=== PATIENT | male | born 1965 | race Caucasian/White ===

== ENCOUNTER 2017-11-02 13:31 | Inpatient (IN) | payer MEDICAID ==
[~2017-11-02] VITALS: Ht 188 cm; Wt 83.0 kg
[2017-11-02] MEDS ORDERED: Octreotide Acetate 500 MCG in Sodium Chloride 500ML 499 ML IV STA (13:44)
[2017-11-02] MEDS ORDERED: SandoSTATIN 50mcg Inj IVP ONE (13:45)
[2017-11-02] MEDS ORDERED: Pantoprazole 80 MG in NS 250 ML IV ONE (14:00)
[2017-11-02] MEDS ORDERED: Pantoprazole Inj IVP ONE (14:00)
[2017-11-02] MEDS ORDERED: Morphine Sulfate 4mg/ml Inj (IV USE ONLY) IVP ONE (14:15)
[2017-11-02 14:25] VITALS: BP 110/66
[2017-11-02 14:25] LABS: HEMATOCRIT 25.3 % (42.0-52.0); HEMOGLOBIN 8.5 G/DL (14.2-18.0); MEAN CORPUSCULAR VOLUME 107 FL (80-99); PLATELET COUNT 91 K/UL (150-450); RED BLOOD COUNT 2.36 M/UL (4.70-6.10); RED CELL DISTRIBUTION WIDTH 20.7 % (11.6-14.8); WHITE BLOOD COUNT 16.6 K/UL (4.8-10.8)
[2017-11-02 14:29] LABS: INR 1.8 (0.9-1.1)
[2017-11-02 14:39] LABS: ANION GAP 14 mmol/L (5-15); BLOOD UREA NITROGEN 15 mg/dL (7-18); CALCIUM 8.3 MG/DL (8.5-10.1); CARBON DIOXIDE 20 MMOL/L (21-32); CHLORIDE 108 MMOL/L (98-107); CREATININE 0.7 MG/DL (0.55-1.30); POTASSIUM 4.2 MMOL/L (3.5-5.1); SODIUM 142 MMOL/L (136-145)
[2017-11-02 14:54] LABS: ALANINE AMINOTRANSFERASE 39 U/L (12-78); ALBUMIN 2.7 G/DL (3.4-5.0); ALBUMIN/GLOBULIN RATIO 0.9 (1.0-2.7); ALKALINE PHOSPHATASE 109 U/L (46-116); ASPARTATE AMINO TRANSFERASE 124 U/L (15-37); BILIRUBIN,TOTAL 16.3 MG/DL (0.2-1.0)
[2017-11-02 14:56] LABS: BILIRUBIN,DIRECT 4.8 MG/DL (0.0-0.3)
[2017-11-02] MEDS ORDERED: Vancomycin 1.5gm/D5W 250ml 250 ML IVPB ONE (15:15)
[2017-11-02] MEDS ORDERED: Piperacillin/Tazobactam 3.375 GM in D5W 55 ML IV SCH (15:15)
--- NOTE | 2017-11-02 15:34 | GI Initial Consult Note ---
History of Present Illness General Date patient seen: Nov 02, 2017 Time patient seen: 15:25 Reason for Hospitalization: Abdominal Pain Reason for Consultation: UGIB Present Illness HPI 52 year old male brought in today to [facility] for reports of hematemesis. History of chronic ETOH abuse, approximately 1 bottle of vodka per day for "many" years. Denies any tobacco or IVDA use. Denied any other medical history at this time. Patient was seen in the ED, awake A&Ox4 NAD with no active vomiting , however with noted blood on his sheets. Generalize jaundice. Abdominal distention. No peripheral edema noted. Labs reviewed with anemia, leukocytosis, abnormal LFTs, coagulopathy and hyperalbuminemia. No known history of endoscopy / colonoscopy. Allergies: Coded Allergies: No Known Allergies (Unverified , 11/02/17) Patient History History Provided By: Patient, Medical Record PMH Narrative see HPI. Social History: Reports: alcohol use Review of Systems All Other Systems: negative except mentioned in HPI Physical Exam Vital Signs Date Time Temp Pulse Resp B/P (MAP) Pulse Ox O2 Delivery O2 Flow Rate FiO2 11/02/17 13:20 98.4 130 20 140/61 96 Room Air 98.4 Sp02 EP Interpretation: reviewed, normal Labs Laboratory Tests Test 11/02/17 14:00 White Blood Count 16.6 K/UL (4.8-10.8) H Red Blood Count 2.36 M/UL (4.70-6.10) L Hemoglobin 8.5 G/DL (14.2-18.0) L Hematocrit 25.3 % (42.0-52.0) L Mean Corpuscular Volume 107 FL (80-99) H Mean Corpuscular Hemoglobin 35.9 PG (27.0-31.0) H Mean Corpuscular Hemoglobin Concent 33.5 G/DL (32.0-36.0) Red Cell Distribution Width 20.7 % (11.6-14.8) H Platelet Count 91 K/UL (150-450) L Mean Platelet Volume 9.9 FL (6.5-10.1) Neutrophils (%) (Auto) % (45.0-75.0) Lymphocytes (%) (Auto) % (20.0-45.0) Monocytes (%) (Auto) % (1.0-10.0) Eosinophils (%) (Auto) % (0.0-3.0) Basophils (%) (Auto) % (0.0-2.0) Differential Total Cells Counted 100 Neutrophils % (Manual) 77 % (45-75) H Lymphocytes % (Manual) 5 % (20-45) L Monocytes % (Manual) 4 % (1-10) Eosinophils % (Manual) 0 % (0-3) Basophils % (Manual) 0 % (0-2) Band Neutrophils 14 % (0-8) H Platelet Estimate Decreased L Platelet Morphology Normal Hypochromasia 1+ Anisocytosis 1+ Macrocytosis 2+ Prothrombin Time 18.4 SEC (9.30-11.50) H Prothromb Time International Ratio 1.8 (0.9-1.1) H Activated Partial Thromboplast Time 35 SEC (23-33) H Sodium Level 142 MMOL/L (136-145) Potassium Level 4.2 MMOL/L (3.5-5.1) Chloride Level 108 MMOL/L (98-107) H Carbon Dioxide Level 20 MMOL/L (21-32) L Anion Gap 14 mmol/L (5-15) Blood Urea Nitrogen 15 mg/dL (7-18) Creatinine 0.7 MG/DL (0.55-1.30) Estimat Glomerular Filtration Rate > 60 mL/min (>60) Glucose Level 104 MG/DL (74-106) Lactic Acid Level 6.30 mmol/L (0.4-2.0) H Calcium Level 8.3 MG/DL (8.5-10.1) L Total Bilirubin 16.3 MG/DL (0.2-1.0) H Direct Bilirubin 4.8 MG/DL (0.0-0.3) H Aspartate Amino Transf (AST/SGOT) 124 U/L (15-37) H Alanine Aminotransferase (ALT/SGPT) 39 U/L (12-78) Alkaline Phosphatase 109 U/L (46-116) Ammonia Pending Total Protein 5.7 G/DL (6.4-8.2) L Albumin 2.7 G/DL (3.4-5.0) L Globulin 3.0 g/dL Albumin/Globulin Ratio 0.9 (1.0-2.7) L Lipase 115 U/L (73-393) General Appearance: well appearing, no apparent distress, alert, thin, other - jaundice Head: normocephalic EENT: PERRL/EOMI, normal ENT inspection Neck: supple Respiratory: normal breath sounds, no respiratory distress Cardiovascular: normal rate Gastrointestinal: normal inspection, non tender, soft, normal bowel sounds, distended, ascites Rectal: deferred Genitourinary: deferred Musculoskeletal: normal inspection, back normal Neurologic: normal inspection, alert, oriented x3, responsive Psychiatric: normal inspection, judgement/insight normal, memory normal Skin: normal inspection, normal color, no rash, warm/dry, palpation normal, well hydrated Lymphatic: normal inspection, no adenopathy Current Medications Current Medications Medications (Trade) Dose Ordered Sig/Fish Route PRN Reason Start Time Stop Time Status Last Admin Dose Admin Octreotide Acetate 500 mcg/ Sodium Chloride 500 ml @ 50 mls/hr Q10H STAT IV 11/02/17 13:44 11/02/17 23:43 11/02/17 14:36 Pantoprazole 80 mg/Sodium Chloride 250 ml @ 25 mls/hr Q10H ONCE IV 11/02/17 14:00 11/02/17 23:59 11/02/17 14:36 Piperacillin Sod/ Tazobactam Sod 3.375 gm/Dextrose 55 ml @ 110 mls/hr Q8HR IV 11/02/17 15:15 11/03/17 15:14 Sodium Chloride 1,000 ml @ 100 mls/hr Q10H ONCE IV 11/02/17 13:43 11/02/17 23:42 Sodium Chloride 2,300 ml @ 2,300 mls/hr Q1H ONCE IVLG 11/02/17 15:15 11/02/17 16:14 Vancomycin HCl/ Dextrose 250 ml @ 125 mls/hr ONCE ONCE IVPB 11/02/17 15:15 11/02/17 17:14 GI: Plan Problems: (1) ETOH abuse (2) Esophageal varices (3) UGI bleed (4) Jaundice (5) Anemia (6) Cirrhosis of liver with ascites (7) Electrolyte imbalance (8) Hepatic encephalopathy Plan EGD to be scheduled tomorrow. - maintain NPO + IVFs vs banana bag start ppi + octreotide gtt discriminant function calculated >> poor prognosis, start prednisone 40mg daily. ceftriaxone 1gm monitor H&H, prn transfusion will need paracentesis after endoscopy >> vit K x1, r/o SBP zofran prn lactulose + xifaxan fu labs, anemia work up, NH3 Discussed with Dr. Fritz. Thank you for this patient referral, we will follow. The patient was seen and examined at bedside and all new and available data was reviewed in the patients chart. I agree with the above findings, impression and plan. (Patient seen earlier today. Signature stamp does not reflect patient encounter time.). - MD Mami DeweyCopper Springs East HospitalSalvador PULVERIZING AND SIFTING OPERATOR Nov 02, 2017 15:34
--- NOTE | 2017-11-02 15:54 | Diagnostic Imaging Report ---
Indication: Cough Technique: One view of the chest Comparison: none Findings: Extensive opacities seen in the right lung base, likely combination of pleural fluid and parenchymal atelectasis/consolidation. The left lung and pleural space, right upper lung are clear Impression: Right basilar opacity, likely large right pleural effusion, with underlying parenchymal disease as well
[2017-11-02] MEDS ORDERED: SandoSTATIN 500mcg Inj ONE (15:55)
--- NOTE | 2017-11-02 16:50 | Diagnostic Imaging Report ---
. Indication: Post nasogastric tube placement Technique: Supine view of the upper abdomen Comparison: none Findings: Sequential views are submitted, there is labeled #1 demonstrates no nasogastric tube, and was labeled #2 demonstrates nasogastric tube coiled in the distal esophagus, and image labeled #3 demonstrates no evidence of nasogastric tube. Bowel gas pattern is unremarkable. No unusual masses or calcifications. Impression: Malpositioned nasogastric tube, apparently subsequently removed, as described
--- NOTE | 2017-11-02 16:51 | Emergency Room Report ---
History of Present Illness General Chief Complaint: Abdominal Pain Source: Patient, Medical Record Present Illness HPI Mr. Hernandes is a 52-year-old male with history of alcoholic liver cirrhosis. He is normally followed at [facility]. He was found at a local recuperative care boarding home lying in bed surrounded by bloody stool. He informed me that he does have a history of esophageal varices. He has generalized abdominal pain. His last alcoholic drink may have been last night or 1 week ago. Allergies: Coded Allergies: No Known Allergies (Unverified , 11/02/17) Patient History Past Medical History: other - alcoholic liver cirrhosis Reviewed Nursing Documentation: PMH: Agreed; PSxH: Agreed Nursing Documentation-PMH Hx Gastrointestinal Problems: Yes - cirrhosis Review of Systems All Other Systems: limited - patient is critically ill Physical Exam Vital Signs Date Time Temp Pulse Resp B/P (MAP) Pulse Ox O2 Delivery O2 Flow Rate FiO2 11/02/17 13:20 98.4 130 20 140/61 96 Room Air 98.4 Sp02 EP Interpretation: reviewed, normal General Appearance: moderate distress, other - severe generalized jaundice GCS 14, Chronically Ill Eyes: bilateral eye scleral icterus ENT: hearing grossly normal, dry mucus membranes Neck: normal inspection, full range of motion Respiratory: normal inspection, lungs clear, normal breath sounds, no rhonchi, no respiratory distress, no retraction, no accessory muscle use Cardiovascular #1: no gallop, no murmur Gastrointestinal: soft, distended, guarding, tenderness Rectal: normal rectal tone, heme positive stool - dark brown stool Neurologic: alert, oriented - to name and situation Psychiatric: other - poor insight Skin: jaundice - generalized Procedures Critical Care Time Critical Care Time 55 minutes of critical care time excluding procedures were used in the care of the patient. I reviewed labs and imaging. I reviewed documentation from outside hospital evaluation. Patient required multiple reassessments and interventions. I was concerned for persistent tachycardia, possible hemorrhagic vs septic shock. Medical Decision Making Diagnostic Impression: Primary Impression: Anemia Additional Impressions: Cirrhosis of liver with ascites UGI bleed Hepatic encephalopathy ER Course Mr. Hernandes presents with UGIB, krysta blood seen on output of NGT. Patient has persistent tachycardia. Concerned for active hemorrhage. Also concerned for possible sepsis and SBP. IVF resuscitation and broad spectrum abx intiated in ED. Protonix and octreotide initiated in the ED. Dr. Patel accepted patient to his service. Patient will be admitted to ICU. Dr. Patel arranged GI consultation Labs Test 11/02/17 14:00 White Blood Count 16.6 K/UL (4.8-10.8) Red Blood Count 2.36 M/UL (4.70-6.10) Hemoglobin 8.5 G/DL (14.2-18.0) Hematocrit 25.3 % (42.0-52.0) Mean Corpuscular Volume 107 FL (80-99) Mean Corpuscular Hemoglobin 35.9 PG (27.0-31.0) Mean Corpuscular Hemoglobin Concent 33.5 G/DL (32.0-36.0) Red Cell Distribution Width 20.7 % (11.6-14.8) Platelet Count 91 K/UL (150-450) Mean Platelet Volume 9.9 FL (6.5-10.1) Neutrophils (%) (Auto) % (45.0-75.0) Lymphocytes (%) (Auto) % (20.0-45.0) Monocytes (%) (Auto) % (1.0-10.0) Eosinophils (%) (Auto) % (0.0-3.0) Basophils (%) (Auto) % (0.0-2.0) Differential Total Cells Counted 100 Neutrophils % (Manual) 77 % (45-75) Lymphocytes % (Manual) 5 % (20-45) Monocytes % (Manual) 4 % (1-10) Eosinophils % (Manual) 0 % (0-3) Basophils % (Manual) 0 % (0-2) Band Neutrophils 14 % (0-8) Platelet Estimate Decreased Platelet Morphology Normal Hypochromasia 1+ Anisocytosis 1+ Macrocytosis 2+ Prothrombin Time 18.4 SEC (9.30-11.50) Prothromb Time International Ratio 1.8 (0.9-1.1) Activated Partial Thromboplast Time 35 SEC (23-33) Sodium Level 142 MMOL/L (136-145) Potassium Level 4.2 MMOL/L (3.5-5.1) Chloride Level 108 MMOL/L (98-107) Carbon Dioxide Level 20 MMOL/L (21-32) Anion Gap 14 mmol/L (5-15) Blood Urea Nitrogen 15 mg/dL (7-18) Creatinine 0.7 MG/DL (0.55-1.30) Estimat Glomerular Filtration Rate > 60 mL/min (>60) Glucose Level 104 MG/DL (74-106) Lactic Acid Level 6.30 mmol/L (0.4-2.0) Calcium Level 8.3 MG/DL (8.5-10.1) Total Bilirubin 16.3 MG/DL (0.2-1.0) Direct Bilirubin 4.8 MG/DL (0.0-0.3) Aspartate Amino Transf (AST/SGOT) 124 U/L (15-37) Alanine Aminotransferase (ALT/SGPT) 39 U/L (12-78) Alkaline Phosphatase 109 U/L (46-116) Total Protein 5.7 G/DL (6.4-8.2) Albumin 2.7 G/DL (3.4-5.0) Globulin 3.0 g/dL Albumin/Globulin Ratio 0.9 (1.0-2.7) Lipase 115 U/L (73-393) Lab Results Impression severe anemia, elevated WBC, elevated lactic acid EKG Diagnostic Results EKG Time: 15:25 Rate: tachycardiac Rhythm: NSR ST Segments: no acute changes Other Impression nl axis rate [address] elevation no signs of ischemia Chest X-Ray Diagnostic Results Chest X-Ray Diagnostic Results : Chest X-Ray Ordered: Yes # of Views/Limited/Complete: 1 View PA Xray: Interpretation reviewed Last Vital Signs Date Time Temp Pulse Resp B/P (MAP) Pulse Ox O2 Delivery O2 Flow Rate FiO2 11/02/17 14:34 98.4 11/02/17 13:20 130 20 140/61 96 Room Air Disposition: ADMITTED INPATIENT Condition: Critical Referrals: NOT CHOSEN IPA/,REFERRING (PCP) Akanksha Winchester MD Nov 02, 2017 16:51
[2017-11-02] MEDS ORDERED: Folic Acid 1 MG, Magnesium Sulfate 2,000 MG, Multivitamin - 12 Injection 10 ML in NS 10... IV ONE ×2 (17:00→21:45)
[2017-11-02] MEDS ORDERED: Thiamine 100mg in D5W 55ml IVPB SCH ×2 (17:00→21:45)
[2017-11-02] MEDS: Pantoprazole 80 MG in NS 250 ML IV SCH ×2 (17:00→20:11)
[2017-11-02] MEDS: Octreotide Acetate 500 MCG in Sodium Chloride 500ML 499 ML IV SCH ×2 (17:00→20:11)
[2017-11-02] MEDS: cefTRIAXone 1 GM in NS 55 ML IVPB SCH (17:00)
[2017-11-02] MEDS: Lactulose 20gm/30ml UDC ORAL SCH (18:00)
[2017-11-02 19:00] VITALS: BP 108/53
[2017-11-02 20:00] VITALS: BP 109/46
[2017-11-02 21:00] VITALS: BP 127/57
[2017-11-02 21:42] LABS: HEMATOCRIT 16.5 % (42.0-52.0); MEAN CORPUSCULAR VOLUME 109 FL (80-99); PLATELET COUNT 79 K/UL (150-450); RED BLOOD COUNT 1.52 M/UL (4.70-6.10); RED CELL DISTRIBUTION WIDTH 21.2 % (11.6-14.8); WHITE BLOOD COUNT 18.6 K/UL (4.8-10.8)
[2017-11-02 21:46] LABS: HEMOGLOBIN 5.9 G/DL (14.2-18.0)
[2017-11-02 22:00] VITALS: BP 110/53
--- NOTE | 2017-11-02 22:30 | Consultation ---
DATE OF CONSULTATION: 11/02/2017 INFECTIOUS DISEASE CONSULTATION CONSULTING PHYSICIAN: Marybeth Crouch M.D. REQUESTING PHYSICIAN: Fauzia Patel M.D. REASON FOR CONSULTATION: Leukocytosis, rule out sepsis. HISTORY OF PRESENT ILLNESS: The patient is a 52-year-old male with past medical history of liver cirrhosis due to alcohol abuse, ascites, and jaundice, was brought into [facility] emergency room for recurrent hematemesis. The patient normally drinks 1 bottle of vodka per day for many years. Denied using any tobacco or any other drugs. The patient was found to be jaundiced and has dry blood in his nares and on his lips with jaundice all over his skin with abdominal distention concerning for ascites and he was encephalopathic probably due to liver cirrhosis. The patient had extensive workup in the emergency room including white count, which checked out to be high concerning for sepsis, so he received vancomycin and Zosyn and Infectious Disease consultation was requested for antibiotics treatment and further management. PAST MEDICAL HISTORY: Significant for liver cirrhosis due to alcohol ascites and jaundice. PAST SURGICAL HISTORY: Negative. MEDICATIONS: He received vancomycin and Zosyn in the emergency room and now, he is on ceftriaxone by gastrointestinal team. ALLERGIES: He has no known drug allergy. FAMILY HISTORY: Not contributory. SOCIAL HISTORY: The patient lives at home alone. He drinks 1 bottle of vodka per day for many years. No drugs or tobacco. REVIEW OF SYSTEMS: A 14-point of system reviewed were all negative apart from the one I mentioned above. PHYSICAL EXAMINATION: VITAL SIGNS: Temperature 98.4, pulse 130, respirations 20, blood pressure 140/61, and saturation 96% on room air. GENERAL: A middle-aged male, cachectic with ascites and jaundice, lying in bed, lethargic, and confused, not in distress. HEENT: Normocephalic and atraumatic. Jaundiced sclera. Jaundiced oral mucosa. No exudate. NECK: Supple. No lymphadenopathy. CARDIOVASCULAR: He is tachycardic. There is a systolic murmur in the mitral valve area. LUNGS: Showed diminished breathing sounds at the right lower lobe with crackles. ABDOMEN: Soft. Distended with ascites. I could not appreciate hepatomegaly. EXTREMITY: With edema. No cyanosis. SKIN: With jaundice and spider angioma. LABORATORY DATA: Laboratories showed white count of 16.6, hemoglobin of 8.5, and platelet count of 91,000. BUN of 15 and, creatinine of 0.7. AST of 124 and ALT of 59. IMAGING: Chest x-ray showed right basilar opacity likely large right pleural effusion with underlying parenchymal disease. ASSESSMENT AND RECOMMENDATION: 1. Leukocytosis suspect due to dehydration from vomiting. We will send blood culture to rule out sepsis. The patient is already on ceftriaxone by Gastroenterology and he received already Zosyn and vancomycin in the emergency room. We will follow culture. 2. Right pleural effusion due to advanced cirrhosis. Recommend thoracentesis to improve his respiratory condition. 3. Upper gastrointestinal bleeding with hematemesis rule out esophageal varices. Need esophagogastroduodenoscopy. Continue Protonix drip. Monitor H and H. transfuse blood as needed. 4. Liver cirrhosis, advanced, complicated with ascites and jaundice. Gastrointestinal team is following. May need referral to transplantation. Thank you for the consult. ID will continue to follow. Marybeth Crouch M.D. DR: ERNESTO JOB#: [id number] CC:
[2017-11-02 23:00] VITALS: BP 127/47
[2017-11-03] VITALS (24 sets, daily range): BP systolic 109–158; BP diastolic 47–75
[2017-11-03 05:54] LABS: HEMATOCRIT 22.5 % (42.0-52.0); HEMOGLOBIN 7.9 G/DL (14.2-18.0); MEAN CORPUSCULAR VOLUME 99 FL (80-99); PLATELET COUNT 62 K/UL (150-450); RED BLOOD COUNT 2.28 M/UL (4.70-6.10); RED CELL DISTRIBUTION WIDTH 24.4 % (11.6-14.8); WHITE BLOOD COUNT 14.7 K/UL (4.8-10.8)
[2017-11-03 06:14] LABS: ALANINE AMINOTRANSFERASE 29 U/L (12-78); ALBUMIN 2.3 G/DL (3.4-5.0); ALKALINE PHOSPHATASE 80 U/L (46-116); ANION GAP 8 mmol/L (5-15); ASPARTATE AMINO TRANSFERASE 98 U/L (15-37); BILIRUBIN,TOTAL 18.4 MG/DL (0.2-1.0); BLOOD UREA NITROGEN 24 mg/dL (7-18); CALCIUM 7.7 MG/DL (8.5-10.1); CARBON DIOXIDE 24 MMOL/L (21-32); CHLORIDE 113 MMOL/L (98-107); CREATININE 0.7 MG/DL (0.55-1.30); POTASSIUM 4.2 MMOL/L (3.5-5.1); SODIUM 145 MMOL/L (136-145)
[2017-11-03] MEDS: Octreotide Acetate 500 MCG in Sodium Chloride 500ML 499 ML IV SCH ×2 (06:14→19:37)
[2017-11-03] MEDS: Pantoprazole 80 MG in NS 250 ML IV SCH ×2 (06:14→20:52)
[2017-11-03] MEDS: Lactulose 20gm/30ml UDC ORAL SCH ×3 (08:27→18:00)
--- NOTE | 2017-11-03 11:13 | Anethesia Preoperative Eval ---
Anesthesia Pre-op PMH/ROS General Date of Evaluation: Nov 03, 2017 Time of Evaluation: 10:30 Anesthesiologist: Hannah Costa CRNA ASA Score: ASA 4 Mallampati Score Class I : Soft palate, uvula, fauces, pillars visible Class II: Soft palate, uvula, fauces visible Class III: Soft palate, base of uvula visible Class IV: Only hard plate visible Mallampati Classification: Class II Surgeon: Lam Diagnosis: Lower GI bleed Surgical Procedure: EGD and colonscopy with biopsy Anesthesia History: none Social History: smoking, alcohol use, drug use Family History: no anesthesia problems Allergies: Coded Allergies: No Known Allergies (Unverified , 11/02/17) Medications: see eMAR Past Medical History Gastrointestinal/Genitourinary: Reports: GERD, other - alchohol related cirrhosis, ascites, esophaeal varices, jaundice Neurologic/Psychiatric: 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 Exam Physician Exam Last Vital Signs Date Time Temp Pulse Resp B/P (MAP) Pulse Ox O2 Delivery O2 Flow Rate FiO2 11/03/17 11:00 117 18 110/60 (77) 100 11/03/17 08:00 99.0 99.0 11/03/17 08:00 Nasal Cannula 3.0 11/02/17 21:55 28 Constitutional: other - juandiced, cachexic Neurologic: other - intermittently confused, oriented x 3 when consented Cardiovascular: RRR Respiratory: CTA Gastrointestinal: S/NT/ND Airway Exam Mallampati Score: Class II MO: limited Neck: noncooperative TMD: > 3FB ROM: full Teeth: missing, broken, loose Dentures: no upper, no lower Anesthesia Pre-op A/P Labs Hematology Test 11/02/17 14:00 11/02/17 20:50 11/03/17 05:05 White Blood Count 16.6 K/UL (4.8-10.8) H 18.6 K/UL (4.8-10.8) H 14.7 K/UL (4.8-10.8) H Red Blood Count 2.36 M/UL (4.70-6.10) L 1.52 M/UL (4.70-6.10) L 2.28 M/UL (4.70-6.10) L Hemoglobin 8.5 G/DL (14.2-18.0) L 5.9 G/DL (14.2-18.0) 7.9 G/DL (14.2-18.0) #L Hematocrit 25.3 % (42.0-52.0) L 16.5 % (42.0-52.0) #L 22.5 % (42.0-52.0) #L Mean Corpuscular Volume 107 FL (80-99) H 109 FL (80-99) H 99 FL (80-99) # Mean Corpuscular Hemoglobin 35.9 PG (27.0-31.0) H 38.8 PG (27.0-31.0) H 34.8 PG (27.0-31.0) H Mean Corpuscular Hemoglobin Concent 33.5 G/DL (32.0-36.0) 35.6 G/DL (32.0-36.0) 35.2 G/DL (32.0-36.0) Red Cell Distribution Width 20.7 % (11.6-14.8) H 21.2 % (11.6-14.8) H 24.4 % (11.6-14.8) H Platelet Count 91 K/UL (150-450) L 79 K/UL (150-450) L 62 K/UL (150-450) L Mean Platelet Volume 9.9 FL (6.5-10.1) 7.9 FL (6.5-10.1) 9.5 FL (6.5-10.1) Neutrophils (%) (Auto) % (45.0-75.0) % (45.0-75.0) % (45.0-75.0) Lymphocytes (%) (Auto) % (20.0-45.0) % (20.0-45.0) % (20.0-45.0) Monocytes (%) (Auto) % (1.0-10.0) % (1.0-10.0) % (1.0-10.0) Eosinophils (%) (Auto) % (0.0-3.0) % (0.0-3.0) % (0.0-3.0) Basophils (%) (Auto) % (0.0-2.0) % (0.0-2.0) % (0.0-2.0) Differential Total Cells Counted 100 100 100 Neutrophils % (Manual) 77 % (45-75) H 74 % (45-75) 86 % (45-75) H Lymphocytes % (Manual) 5 % (20-45) L 4 % (20-45) L 7 % (20-45) L Monocytes % (Manual) 4 % (1-10) 6 % (1-10) 7 % (1-10) Eosinophils % (Manual) 0 % (0-3) 0 % (0-3) 0 % (0-3) Basophils % (Manual) 0 % (0-2) 0 % (0-2) 0 % (0-2) Band Neutrophils 14 % (0-8) H 16 % (0-8) H 0 % (0-8) Platelet Estimate Decreased L Decreased L Decreased L Platelet Morphology Normal Normal Normal Hypochromasia 1+ 2+ 1+ Anisocytosis 1+ 2+ 2+ Macrocytosis 2+ 2+ Polychromasia 1+ Coagulation Test 11/02/17 14:00 11/03/17 05:05 Prothrombin Time 18.4 SEC (9.30-11.50) H 20.5 SEC (9.30-11.50) H Prothromb Time International Ratio 1.8 (0.9-1.1) H 2.0 (0.9-1.1) H Activated Partial Thromboplast Time 35 SEC (23-33) H 40 SEC (23-33) H Chemistry Test 11/02/17 14:00 11/02/17 20:50 11/03/17 05:05 11/03/17 08:20 Sodium Level 142 MMOL/L (136-145) 145 MMOL/L (136-145) Potassium Level 4.2 MMOL/L (3.5-5.1) 4.2 MMOL/L (3.5-5.1) Chloride Level 108 MMOL/L (98-107) H 113 MMOL/L (98-107) H Carbon Dioxide Level 20 MMOL/L (21-32) L 24 MMOL/L (21-32) Anion Gap 14 mmol/L (5-15) 8 mmol/L (5-15) Blood Urea Nitrogen 15 mg/dL (7-18) 24 mg/dL (7-18) H Creatinine 0.7 MG/DL (0.55-1.30) 0.7 MG/DL (0.55-1.30) Estimat Glomerular Filtration Rate > 60 mL/min (>60) > 60 mL/min (>60) Glucose Level 104 MG/DL (74-106) 120 MG/DL (74-106) H Lactic Acid Level 6.30 mmol/L (0.4-2.0) H 6.10 mmol/L (0.4-2.0) H 3.00 mmol/L (0.4-2.0) H 2.30 mmol/L (0.66-2.22) H Calcium Level 8.3 MG/DL (8.5-10.1) L 7.7 MG/DL (8.5-10.1) L Total Bilirubin 16.3 MG/DL (0.2-1.0) H 18.4 MG/DL (0.2-1.0) H Direct Bilirubin 4.8 MG/DL (0.0-0.3) H 6.0 MG/DL (0.0-0.3) H Aspartate Amino Transf (AST/SGOT) 124 U/L (15-37) H 98 U/L (15-37) H Alanine Aminotransferase (ALT/SGPT) 39 U/L (12-78) 29 U/L (12-78) Alkaline Phosphatase 109 U/L (46-116) 80 U/L (46-116) Total Protein 5.7 G/DL (6.4-8.2) L 4.7 G/DL (6.4-8.2) L Albumin 2.7 G/DL (3.4-5.0) L 2.3 G/DL (3.4-5.0) L Globulin 3.0 g/dL 2.4 g/dL Albumin/Globulin Ratio 0.9 (1.0-2.7) L 1.0 (1.0-2.7) Lipase 115 U/L (73-393) Ammonia 90 umol/L (11-32) H Studies Pre-op Studies: EKG - 10/02/17: NSR HR 130 Risk Assessment & Plan Assessment: Critically ill 52 yo male with active GI bleed requiring EGD & biopsy Plan: Bedside sedation for procedure Status Change Before Surgery: No Pre-Antibiotics Given Within 1 Hr of Incision: Hannah Garces CRNA Nov 03, 2017 11:13
[2017-11-03] MEDS ORDERED: fentaNYL 100 mcg/2 mL IV ONE (11:37)
[2017-11-03] MEDS ORDERED: Midazolam 2mg/2ml Inj ONE (11:37)
[2017-11-03] MEDS ORDERED: Propofol 200mg/20ml IV ONE (11:45)
--- NOTE | 2017-11-03 11:49 | Pre-Procedure Note/Attestation ---
Pre-Procedure Note/Attestation Complete Prior to Procedure Planned Procedure: not applicable Procedure Narrative: egd Indications for Procedure Pre-Operative Diagnosis: GIB Attestation I attest that I discussed the nature of the procedure; its benefits; risks and complications; and alternatives (and the risks and benefits of such alternatives ), prior to the procedure, with the patient (or the patient's legal sales representative health insurance). I attest that, if there was a reasonable possibility of needing a blood transfusion, the patient (or the patient's legal sales representative health insurance) was given the [facility] standardized written summary, pursuant to the Geraldo Johanna Blood Safety Act ([place] Health and Safety Code # 1645, as amended). I attest that I re-evaluated the patient just prior to the surgery and that there has been no change in the patient's H&P, except as documented below: Morgan Fritz MD Nov 03, 2017 11:49
--- NOTE | 2017-11-03 12:25 | Immediate Post-Op Evaluation ---
Immediate Post-Op Evalulation Immediate Post-Op Evalulation Procedure: EGD Date of Evaluation: Nov 03, 2017 Time of Evaluation: 12:04 IV Fluids: NS 50 ml Blood Pressure Systolic: 115 Blood Pressure Diastolic: 47 Pulse Rate: 107 Respiratory Rate: 17 O2 Sat by Pulse Oximetry: 97 Temperature (Fahrenheit): 97 Pain Score (1-10): 0 Nausea: No Vomiting: No Complications none Patient Status: reacts, patent Hydration Status: adequate Given Within 1 Hr of Incision: Hannah Garces CRNA Nov 03, 2017 12:25
--- NOTE | 2017-11-03 12:31 | Endoscopy Procedure Note ---
Endoscopy Procedure Note General Indication for Procedure: gib Procedures Performed: EGD Operative Findings/Diagnosis: gastritis, esophagitis Specimen: yes Pt Tolerated Procedure Well: Yes Estimated Blood Loss: none Anesthesia Anesthesiologist: see chart Anesthesia: MAC Inserted Devices Implant(s) used?: No GI Core Measures 50 yrs or older w/o bx or poly: Not Applicable 10yrs. F/U not recommended: Not Applicable Morgan Fritz MD Nov 03, 2017 12:31
--- NOTE | 2017-11-03 12:53 | History & Physical ---
History and Physical History & Physicial HISTORY OF PRESENT ILLNESS: The patient is a 52-year-old male with past medical history of liver cirrhosis due to alcohol abuse, ascites, and jaundice, was brought into [facility] emergency room for recurrent hematemesis. The patient normally drinks 1 bottle of vodka per day for many years. Denied using any tobacco or any other drugs. The patient was found to be jaundiced and has dry blood in his nares and on his lips with jaundice all over his skin with abdominal distention concerning for ascites and he was encephalopathic probably due to liver cirrhosis. The patient had extensive workup in the emergency room including white count, which checked out to be high concerning for sepsis, so he received vancomycin and Zosyn and Infectious Disease consultation was requested for antibiotics treatment and further management. PAST MEDICAL HISTORY: Significant for liver cirrhosis due to alcohol ascites and jaundice. PAST SURGICAL HISTORY: Negative. MEDICATIONS: He received vancomycin and Zosyn in the emergency room and now, he is on ceftriaxone by gastrointestinal team. ALLERGIES: He has no known drug allergy. FAMILY HISTORY: Not contributory. SOCIAL HISTORY: The patient lives at home alone. He drinks 1 bottle of vodka per day for many years. No drugs or tobacco. REVIEW OF SYSTEMS: A 14-point of system reviewed were all negative apart from the one I mentioned above. PHYSICAL EXAMINATION: VITAL SIGNS: Temperature 98.4, pulse 120, respirations 22, blood pressure 105/pulse, and saturation 96% on room air. GENERAL: A middle-aged male, cachectic with ascites and jaundice, lying in bed, lethargic, and confused, not in distress. HEENT: Normocephalic and atraumatic. Jaundiced sclera. Jaundiced oral mucosa. No exudate. NECK: Supple. No lymphadenopathy. CARDIOVASCULAR: He is tachycardic. There is a systolic murmur in the mitral valve area. LUNGS: Showed diminished breathing sounds at the right lower lobe with crackles. ABDOMEN: Soft. Distended with ascites. I could not appreciate hepatomegaly. EXTREMITY: With edema. No cyanosis. SKIN: With jaundice and spider angioma. LABORATORY DATA: Laboratories showed white count of 16.6, hemoglobin of 8.5, and platelet count of 91,000. BUN of 15 and, creatinine of 0.7. AST of 124 and ALT of 59. IMAGING: Chest x-ray showed right basilar opacity likely large right pleural effusion with underlying parenchymal disease. ASSESSMENT AND RECOMMENDATION: 1. Acute Encephalopathy- multifactorial 2. Sepsis: likely SB Peritonisit, 2. Right pleural effusion due to advanced cirrhosis. Recommend thoracentesis to improve his respiratory condition. 3. Acute GI-Bleeding S/p esophagogastroduodenoscopy. Continue Protonix drip. Monitor H and H. transfuse blood as needed. 4. Liver cirrhosis, advanced, complicated with ascites and jaundice Plan: Will consult GI- ID- services Poor prognosis consulted Fauzia Pompa MD Nov 03, 2017 12:53
[2017-11-03] MEDS ORDERED: Nulytely 4L ORAL ONE (16:00)
--- NOTE | 2017-11-03 16:17 | Diagnostic Imaging Report ---
Indication: Nasogastric tube placement Comparison: None Single view of the abdomen obtained Findings: NG tube is in good position. Both the tip and proximal port are in the stomach lumen below the diaphragm. IMPRESSION: NG tube in good position
[2017-11-03] MEDS: cefTRIAXone 1 GM in NS 55 ML IVPB SCH (17:00)
--- NOTE | 2017-11-03 18:30 | Procedure Note ---
DATE OF PROCEDURE: 11/03/2017 SURGEON: Morgan Fritz M.D. ANESTHESIOLOGIST: SIMONE. PROCEDURE: Upper endoscopy. ANESTHESIA: Per PLACEMENT ASSISTANT. Please see the chart. INSTRUMENT: Olympus adult flexible upper endoscope. INDICATION: GI bleeding. The procedure, risks, benefits, and possible consequences, including hemorrhage, aspiration, perforation and infection, and alternative treatments, were explained to the patient/legal guardian by Dr. Mrogan Fritz and the patient/legal guardian understood and accepted these risks. DESCRIPTION OF PROCEDURE: After informed consent was obtained and the patient was adequately sedated, Olympus upper endoscope was advanced from the mouth into the second portion of the duodenum and retroflexion was performed in the stomach. The patient had minimal esophagitis in the upper esophagus without any active bleeding. No obvious esophageal nor gastric varices were seen. It seemed that the patient possibly had history of prior banding, so there was some scar tissue in the distal esophagus, but again, there were no active varices at this time and no active upper GI bleeding at this time. In the stomach, there was diffuse gastritis suspicious for portal hypertensive gastropathy, but given INR of 2.2, we decided not to biopsy at this time. SUMMARY OF FINDINGS: 1. No evidence of any active upper GI bleeding. 2. Minimal upper esophagitis. 3. Gastritis. RECOMMENDATIONS: Monitor hemoglobin and hematocrit. Transfuse as needed. Correct the coagulopathy. Given the patient not having rectal bleeding, we will consider colonoscopy for tomorrow. Morgan Fritz M.D. DR: Izabel JOB#: [id number] CC:
[2017-11-03 21:12] LABS: HEMATOCRIT 20.5 % (42.0-52.0); HEMOGLOBIN 7.3 G/DL (14.2-18.0); MEAN CORPUSCULAR VOLUME 99 FL (80-99); PLATELET COUNT 63 K/UL (150-450); RED BLOOD COUNT 2.07 M/UL (4.70-6.10); RED CELL DISTRIBUTION WIDTH 23.7 % (11.6-14.8)
[2017-11-03 21:13] LABS: BASOPHILS % (AUTO) 0.3 % (0.0-2.0); EOSINOPHILS % (AUTO) 0.1 % (0.0-3.0); LYMPHOCYTES % (AUTO) 4.9 % (20.0-45.0); MONOCYTES % (AUTO) 9.1 % (1.0-10.0); NEUTROPHILS % (AUTO) 85.6 % (45.0-75.0)
[2017-11-03 21:43] LABS: ANION GAP 8 mmol/L (5-15); BLOOD UREA NITROGEN 24 mg/dL (7-18); CALCIUM 8.3 MG/DL (8.5-10.1); CARBON DIOXIDE 24 MMOL/L (21-32); CHLORIDE 115 MMOL/L (98-107); CREATININE 0.6 MG/DL (0.55-1.30); POTASSIUM 3.8 MMOL/L (3.5-5.1); SODIUM 147 MMOL/L (136-145)
[2017-11-03 21:54] LABS: ALANINE AMINOTRANSFERASE 31 U/L (12-78); ALBUMIN 2.6 G/DL (3.4-5.0); ALKALINE PHOSPHATASE 81 U/L (46-116); ASPARTATE AMINO TRANSFERASE 81 U/L (15-37); BILIRUBIN,TOTAL 18.1 MG/DL (0.2-1.0)
[2017-11-03 21:56] LABS: BILIRUBIN,DIRECT 6.8 MG/DL (0.0-0.3)
--- NOTE | 2017-11-03 22:21 | Infectious Diseases Prog Note ---
Assessment/Plan Problems: (1) Leukocytosis, unspecified Assessment & Plan: rule out sepsis, await blood culture, continue ceftriaxon empirically (2) Pleural effusion on right Assessment & Plan: suspect due to liver cirrhosis , recommend thoracentesis and fluids culture with cytology (3) Cirrhosis of liver with ascites Assessment & Plan: advanced complicated with UGI bleeding, on PPI and steroids per GI , poor prognosis (4) UGI bleed Assessment & Plan: due to liver cirrhosis and possible esophageal varices , continue PPI, transfuse blood as needed, Gi is following (5) Hepatic encephalopathy Assessment & Plan: due to liver cirrhosis , continue lactulose and rifixamin (6) Jaundice Subjective ROS Limited/Unobtainable: Yes - he is still encephalopathic and confused, with jaundice . Allergies: Coded Allergies: No Known Allergies (Unverified , 11/02/17) Objective Vital Signs Last 24 Hour Vital Signs Date Time Temp Pulse Resp B/P (MAP) Pulse Ox O2 Delivery O2 Flow Rate FiO2 11/03/17 20:00 Nasal Cannula 3.0 11/03/17 20:00 120 11/03/17 19:19 98 Nasal Cannula 2.0 28 11/03/17 19:19 Nasal Cannula 2.0 28 11/03/17 19:00 114 20 149/60 (89) 100 11/03/17 18:00 119 20 121/66 (84) 100 11/03/17 17:00 118 19 125/64 (84) 100 11/03/17 16:00 120 19 122/54 (76) 100 11/03/17 16:00 Nasal Cannula 3.0 11/03/17 16:00 110 11/03/17 15:00 115 18 115/65 (82) 100 11/03/17 14:00 118 18 125/68 (87) 100 11/03/17 13:00 89.9 115 19 122/50 (74) 100 89.9 11/03/17 12:25 206.6 107 17 97 11/03/17 12:00 116 11/03/17 12:00 Nasal Cannula 3.0 11/03/17 12:00 110 18 115/66 (82) 100 11/03/17 11:00 117 18 110/60 (77) 100 11/03/17 10:00 118 19 122/56 (78) 100 11/03/17 09:00 122 19 125/55 (78) 98 11/03/17 08:00 99.0 120 19 120/57 (78) 97 99.0 11/03/17 08:00 Nasal Cannula 3.0 11/03/17 08:00 120 11/03/17 07:00 123 19 129/55 (79) 98 11/03/17 06:00 115 19 154/65 (94) 98 11/03/17 05:00 115 19 138/64 (88) 98 11/03/17 04:00 99.3 115 19 123/58 (79) 97 99.3 11/03/17 04:00 Nasal Cannula 4.0 11/03/17 04:00 115 11/03/17 03:00 115 19 128/60 (82) 98 11/03/17 02:00 113 18 110/62 (78) 97 11/03/17 01:00 117 19 109/56 (73) 97 11/03/17 00:00 118 11/03/17 00:00 119 20 125/47 (73) 98 11/03/17 00:00 Nasal Cannula 4.0 11/02/17 23:00 120 19 127/47 (73) Height (Feet): 6 Height (Inches): 2.00 Weight (Pounds): 167 General Appearance: WD/WN, cachetic, other - jaundiced, confused HEENT: normocephalic, atraumatic, PERRL, EOMI, supple, no JVD Respiratory/Chest: chest wall non-tender, no respiratory distress, no accessory muscle use, decreased breath sounds, crackles/rales Cardiovascular: normal peripheral pulses, normal rate, regular rhythm, no gallop/murmur, no JVD Abdomen: soft, non tender, no scars, hypoactive bowel sounds, distended, tender Extremities: no cyanosis, no clubbing Skin: no rash, no lesions, other - jaundiced with spider angiomas Neurologic/Psychiatric: alert, disoriented, unresponsiveness Lymphatic: no neck adenopathy, no groin adenopathy Microbiology Date/Time Source Procedure Growth Status 11/02/17 20:51 Rectum Received Laboratory Tests Test 11/03/17 05:05 11/03/17 08:20 11/03/17 20:40 White Blood Count 14.7 K/UL (4.8-10.8) H 15.0 K/UL (4.8-10.8) H Red Blood Count 2.28 M/UL (4.70-6.10) L 2.07 M/UL (4.70-6.10) L Hemoglobin 7.9 G/DL (14.2-18.0) #L 7.3 G/DL (14.2-18.0) L Hematocrit 22.5 % (42.0-52.0) #L 20.5 % (42.0-52.0) L Mean Corpuscular Volume 99 FL (80-99) # 99 FL (80-99) Mean Corpuscular Hemoglobin 34.8 PG (27.0-31.0) H 35.2 PG (27.0-31.0) H Mean Corpuscular Hemoglobin Concent 35.2 G/DL (32.0-36.0) 35.4 G/DL (32.0-36.0) Red Cell Distribution Width 24.4 % (11.6-14.8) H 23.7 % (11.6-14.8) H Platelet Count 62 K/UL (150-450) L 63 K/UL (150-450) L Mean Platelet Volume 9.5 FL (6.5-10.1) 10.1 FL (6.5-10.1) Neutrophils (%) (Auto) % (45.0-75.0) 85.6 % (45.0-75.0) H Lymphocytes (%) (Auto) % (20.0-45.0) 4.9 % (20.0-45.0) L Monocytes (%) (Auto) % (1.0-10.0) 9.1 % (1.0-10.0) Eosinophils (%) (Auto) % (0.0-3.0) 0.1 % (0.0-3.0) Basophils (%) (Auto) % (0.0-2.0) 0.3 % (0.0-2.0) Differential Total Cells Counted 100 Neutrophils % (Manual) 86 % (45-75) H Lymphocytes % (Manual) 7 % (20-45) L Monocytes % (Manual) 7 % (1-10) Eosinophils % (Manual) 0 % (0-3) Basophils % (Manual) 0 % (0-2) Band Neutrophils 0 % (0-8) Platelet Estimate Decreased L Platelet Morphology Normal Polychromasia 1+ Hypochromasia 1+ Anisocytosis 2+ Prothrombin Time 20.5 SEC (9.30-11.50) H Prothromb Time International Ratio 2.0 (0.9-1.1) H Activated Partial Thromboplast Time 40 SEC (23-33) H Sodium Level 145 MMOL/L (136-145) 147 MMOL/L (136-145) H Potassium Level 4.2 MMOL/L (3.5-5.1) 3.8 MMOL/L (3.5-5.1) Chloride Level 113 MMOL/L (98-107) H 115 MMOL/L (98-107) H Carbon Dioxide Level 24 MMOL/L (21-32) 24 MMOL/L (21-32) Anion Gap 8 mmol/L (5-15) 8 mmol/L (5-15) Blood Urea Nitrogen 24 mg/dL (7-18) H 24 mg/dL (7-18) H Creatinine 0.7 MG/DL (0.55-1.30) 0.6 MG/DL (0.55-1.30) Estimat Glomerular Filtration Rate > 60 mL/min (>60) > 60 mL/min (>60) Glucose Level 120 MG/DL (74-106) H 117 MG/DL (74-106) H Lactic Acid Level 3.00 mmol/L (0.4-2.0) H 2.30 mmol/L (0.66-2.22) H Calcium Level 7.7 MG/DL (8.5-10.1) L 8.3 MG/DL (8.5-10.1) L Total Bilirubin 18.4 MG/DL (0.2-1.0) H Pending Direct Bilirubin 6.0 MG/DL (0.0-0.3) H 6.8 MG/DL (0.0-0.3) H Aspartate Amino Transf (AST/SGOT) 98 U/L (15-37) H 81 U/L (15-37) H Alanine Aminotransferase (ALT/SGPT) 29 U/L (12-78) 31 U/L (12-78) Alkaline Phosphatase 80 U/L (46-116) 81 U/L (46-116) Total Protein 4.7 G/DL (6.4-8.2) L 5.1 G/DL (6.4-8.2) L Albumin 2.3 G/DL (3.4-5.0) L 2.6 G/DL (3.4-5.0) L Globulin 2.4 g/dL 2.5 g/dL Albumin/Globulin Ratio 1.0 (1.0-2.7) 1.0 (1.0-2.7) Iron Level Pending Unsaturated Iron Binding Pending Ferritin Pending Lactate Dehydrogenase Pending Thyroid Stimulating Hormone (TSH) Pending HIV (1&2) Antibody Rapid Pending Current Medications Medications (Trade) Dose Ordered Sig/Fish Route PRN Reason Start Time Stop Time Status Last Admin Dose Admin Ceftriaxone Sodium 1 gm/ Sodium Chloride 55 ml @ 110 mls/hr Q24H IVPB 11/02/17 17:00 11/09/17 16:59 11/03/17 17:00 Lactulose (Cephulac) 30 gm TID ORAL 11/02/17 18:00 12/02/17 17:59 11/03/17 18:00 Octreotide Acetate 500 mcg/ Sodium Chloride 500 ml @ 50 mls/hr Q10H IV 11/02/17 17:00 12/02/17 16:59 11/03/17 19:37 Pantoprazole 80 mg/Sodium Chloride 250 ml @ 25 mls/hr Q10H IV 11/02/17 17:00 12/02/17 16:59 11/03/17 20:52 Prednisone (predniSONE) 40 mg DAILY ORAL 11/02/17 15:45 12/02/17 15:44 Rifaximin (Xifaxan) 550 mg BID ORAL 11/02/17 18:00 11/09/17 17:59 11/03/17 18:00 Sodium Phosphate (Fleet's Sodium Phosl Enema) 133 ml ONCE RECTAL 11/03/17 23:00 11/03/17 23:59 Marybeth Crouch M.D. Nov 03, 2017 22:21
[2017-11-03 22:39] LABS: BILIRUBIN,TOTAL 17.4 MG/DL (0.2-1.0); FERRITIN 1042 NG/ML (8-388); LACTATE DEHYDROGENASE 357 U/L (81-234)
[2017-11-03 22:40] LABS: % IRON SATURATION 99 % (15-50); IRON 137 ug/dL (50-175); TOTAL IRON BINDING CAPACITY 138 ug/dL (250-450)
[2017-11-03] MEDS ORDERED: Fleet's Enema 133ml RECTAL SCH (23:00)
[2017-11-04] VITALS (19 sets, daily range): BP systolic 110–152; BP diastolic 53–85
[2017-11-04] MEDS: Pantoprazole 80 MG in NS 250 ML IV SCH (06:31)
[2017-11-04] MEDS: Octreotide Acetate 500 MCG in Sodium Chloride 500ML 499 ML IV SCH (06:32)
--- NOTE | 2017-11-04 07:28 | Anethesia Preoperative Eval ---
Anesthesia Pre-op PMH/ROS General Date of Evaluation: Nov 04, 2017 Time of Evaluation: 07:25 Anesthesiologist: karl ASA Score: ASA 4 Mallampati Score Class I : Soft palate, uvula, fauces, pillars visible Class II: Soft palate, uvula, fauces visible Class III: Soft palate, base of uvula visible Class IV: Only hard plate visible Mallampati Classification: Class II Surgeon: castillo Diagnosis: lgib Surgical Procedure: colonoscopy Anesthesia History: none Social History: smoking, alcohol use Family History: no anesthesia problems Allergies: Coded Allergies: No Known Allergies (Unverified , 11/02/17) Medications: see eMAR Past Medical History Pulmonary: Reports: other - pleural effusion right Gastrointestinal/Genitourinary: Reports: GERD, other - esophageal varices, jaundice, hepatic encephalopathy cirrhosis, ascites Neurologic/Psychiatric: Reports: other - hepatic encephalopathy Hematology/Immune: Reports: anemia, other - thrombocytopenia Anesthesia Pre-op Phys. Exam Physician Exam Last Vital Signs Date Time Temp Pulse Resp B/P (MAP) Pulse Ox O2 Delivery O2 Flow Rate FiO2 11/04/17 07:00 108 20 141/70 (93) 99 11/04/17 06:00 98.8 98.8 11/04/17 04:00 Nasal Cannula 3.0 11/03/17 19:19 28 Constitutional: NAD Neurologic: CN 2-12 intact Cardiovascular: RRR Respiratory: CTA Airway Exam Mallampati Score: Class II MO: limited Neck: flexible TMD: 2fb ROM: limited Anesthesia Pre-op A/P Labs Labs Test 11/02/17 14:00 11/02/17 20:50 11/03/17 05:05 11/03/17 08:20 White Blood Count 16.6 K/UL (4.8-10.8) 18.6 K/UL (4.8-10.8) 14.7 K/UL (4.8-10.8) Red Blood Count 2.36 M/UL (4.70-6.10) 1.52 M/UL (4.70-6.10) 2.28 M/UL (4.70-6.10) Hemoglobin 8.5 G/DL (14.2-18.0) 5.9 G/DL (14.2-18.0) 7.9 G/DL (14.2-18.0) Hematocrit 25.3 % (42.0-52.0) 16.5 % (42.0-52.0) 22.5 % (42.0-52.0) Mean Corpuscular Volume 107 FL (80-99) 109 FL (80-99) 99 FL (80-99) Mean Corpuscular Hemoglobin 35.9 PG (27.0-31.0) 38.8 PG (27.0-31.0) 34.8 PG (27.0-31.0) Mean Corpuscular Hemoglobin Concent 33.5 G/DL (32.0-36.0) 35.6 G/DL (32.0-36.0) 35.2 G/DL (32.0-36.0) Red Cell Distribution Width 20.7 % (11.6-14.8) 21.2 % (11.6-14.8) 24.4 % (11.6-14.8) Platelet Count 91 K/UL (150-450) 79 K/UL (150-450) 62 K/UL (150-450) Mean Platelet Volume 9.9 FL (6.5-10.1) 7.9 FL (6.5-10.1) 9.5 FL (6.5-10.1) Neutrophils (%) (Auto) % (45.0-75.0) % (45.0-75.0) % (45.0-75.0) Lymphocytes (%) (Auto) % (20.0-45.0) % (20.0-45.0) % (20.0-45.0) Monocytes (%) (Auto) % (1.0-10.0) % (1.0-10.0) % (1.0-10.0) Eosinophils (%) (Auto) % (0.0-3.0) % (0.0-3.0) % (0.0-3.0) Basophils (%) (Auto) % (0.0-2.0) % (0.0-2.0) % (0.0-2.0) Differential Total Cells Counted 100 100 100 Neutrophils % (Manual) 77 % (45-75) 74 % (45-75) 86 % (45-75) Lymphocytes % (Manual) 5 % (20-45) 4 % (20-45) 7 % (20-45) Monocytes % (Manual) 4 % (1-10) 6 % (1-10) 7 % (1-10) Eosinophils % (Manual) 0 % (0-3) 0 % (0-3) 0 % (0-3) Basophils % (Manual) 0 % (0-2) 0 % (0-2) 0 % (0-2) Band Neutrophils 14 % (0-8) 16 % (0-8) 0 % (0-8) Platelet Estimate Decreased Decreased Decreased Platelet Morphology Normal Normal Normal Hypochromasia 1+ 2+ 1+ Anisocytosis 1+ 2+ 2+ Macrocytosis 2+ 2+ Prothrombin Time 18.4 SEC (9.30-11.50) 20.5 SEC (9.30-11.50) Prothromb Time International Ratio 1.8 (0.9-1.1) 2.0 (0.9-1.1) Activated Partial Thromboplast Time 35 SEC (23-33) 40 SEC (23-33) Sodium Level 142 MMOL/L (136-145) 145 MMOL/L (136-145) Potassium Level 4.2 MMOL/L (3.5-5.1) 4.2 MMOL/L (3.5-5.1) Chloride Level 108 MMOL/L (98-107) 113 MMOL/L (98-107) Carbon Dioxide Level 20 MMOL/L (21-32) 24 MMOL/L (21-32) Anion Gap 14 mmol/L (5-15) 8 mmol/L (5-15) Blood Urea Nitrogen 15 mg/dL (7-18) 24 mg/dL (7-18) Creatinine 0.7 MG/DL (0.55-1.30) 0.7 MG/DL (0.55-1.30) Estimat Glomerular Filtration Rate > 60 mL/min (>60) > 60 mL/min (>60) Glucose Level 104 MG/DL (74-106) 120 MG/DL (74-106) Lactic Acid Level 6.30 mmol/L (0.4-2.0) 6.10 mmol/L (0.4-2.0) 3.00 mmol/L (0.4-2.0) 2.30 mmol/L (0.66-2.22) Calcium Level 8.3 MG/DL (8.5-10.1) 7.7 MG/DL (8.5-10.1) Total Bilirubin 16.3 MG/DL (0.2-1.0) 18.4 MG/DL (0.2-1.0) Direct Bilirubin 4.8 MG/DL (0.0-0.3) 6.0 MG/DL (0.0-0.3) Aspartate Amino Transf (AST/SGOT) 124 U/L (15-37) 98 U/L (15-37) Alanine Aminotransferase (ALT/SGPT) 39 U/L (12-78) 29 U/L (12-78) Alkaline Phosphatase 109 U/L (46-116) 80 U/L (46-116) Total Protein 5.7 G/DL (6.4-8.2) 4.7 G/DL (6.4-8.2) Albumin 2.7 G/DL (3.4-5.0) 2.3 G/DL (3.4-5.0) Globulin 3.0 g/dL 2.4 g/dL Albumin/Globulin Ratio 0.9 (1.0-2.7) 1.0 (1.0-2.7) Lipase 115 U/L (73-393) Ammonia 90 umol/L (11-32) Polychromasia 1+ Test 11/03/17 20:40 11/04/17 05:00 11/04/17 07:04 White Blood Count 15.0 K/UL (4.8-10.8) 14.0 K/UL (4.8-10.8) Red Blood Count 2.07 M/UL (4.70-6.10) 2.34 M/UL (4.70-6.10) Hemoglobin 7.3 G/DL (14.2-18.0) 7.9 G/DL (14.2-18.0) Hematocrit 20.5 % (42.0-52.0) 22.9 % (42.0-52.0) Mean Corpuscular Volume 99 FL (80-99) 98 FL (80-99) Mean Corpuscular Hemoglobin 35.2 PG (27.0-31.0) 33.6 PG (27.0-31.0) Mean Corpuscular Hemoglobin Concent 35.4 G/DL (32.0-36.0) 34.4 G/DL (32.0-36.0) Red Cell Distribution Width 23.7 % (11.6-14.8) 22.3 % (11.6-14.8) Platelet Count 63 K/UL (150-450) 54 K/UL (150-450) Mean Platelet Volume 10.1 FL (6.5-10.1) 6.9 FL (6.5-10.1) Neutrophils (%) (Auto) 85.6 % (45.0-75.0) % (45.0-75.0) Lymphocytes (%) (Auto) 4.9 % (20.0-45.0) % (20.0-45.0) Monocytes (%) (Auto) 9.1 % (1.0-10.0) % (1.0-10.0) Eosinophils (%) (Auto) 0.1 % (0.0-3.0) % (0.0-3.0) Basophils (%) (Auto) 0.3 % (0.0-2.0) % (0.0-2.0) Sodium Level 147 MMOL/L (136-145) 149 MMOL/L (136-145) Potassium Level 3.8 MMOL/L (3.5-5.1) 3.8 MMOL/L (3.5-5.1) Chloride Level 115 MMOL/L (98-107) 116 MMOL/L (98-107) Carbon Dioxide Level 24 MMOL/L (21-32) 25 MMOL/L (21-32) Anion Gap 8 mmol/L (5-15) 8 mmol/L (5-15) Blood Urea Nitrogen 24 mg/dL (7-18) 24 mg/dL (7-18) Creatinine 0.6 MG/DL (0.55-1.30) 0.5 MG/DL (0.55-1.30) Estimat Glomerular Filtration Rate > 60 mL/min (>60) > 60 mL/min (>60) Glucose Level 117 MG/DL (74-106) 106 MG/DL (74-106) Calcium Level 8.3 MG/DL (8.5-10.1) 8.1 MG/DL (8.5-10.1) Iron Level 137 ug/dL (50-175) Total Iron Binding Capacity 138 ug/dL (250-450) Percent Iron Saturation 99 % (15-50) Unsaturated Iron Binding 1 ug/dL (112-346) Ferritin 1042 NG/ML (8-388) Total Bilirubin 17.4 MG/DL (0.2-1.0) 18.1 MG/DL (0.2-1.0) Direct Bilirubin 6.8 MG/DL (0.0-0.3) 7.6 MG/DL (0.0-0.3) Aspartate Amino Transf (AST/SGOT) 81 U/L (15-37) 73 U/L (15-37) Alanine Aminotransferase (ALT/SGPT) 31 U/L (12-78) 30 U/L (12-78) Alkaline Phosphatase 81 U/L (46-116) 82 U/L (46-116) Lactate Dehydrogenase 357 U/L (81-234) Total Protein 5.1 G/DL (6.4-8.2) 5.2 G/DL (6.4-8.2) Albumin 2.6 G/DL (3.4-5.0) 2.6 G/DL (3.4-5.0) Globulin 2.5 g/dL 2.6 g/dL Albumin/Globulin Ratio 1.0 (1.0-2.7) 1.0 (1.0-2.7) Thyroid Stimulating Hormone (TSH) 0.069 uiU/mL (0.358-3.740) HIV (1&2) Antibody Rapid Negative (NEGATIVE) Stool Occult Blood Positive (NEGATIVE) Differential Total Cells Counted 100 Neutrophils % (Manual) 73 % (45-75) Lymphocytes % (Manual) 2 % (20-45) Monocytes % (Manual) 12 % (1-10) Eosinophils % (Manual) 0 % (0-3) Basophils % (Manual) 0 % (0-2) Myelocytes % 1 % (0-0) Band Neutrophils 12 % (0-8) Platelet Estimate Decreased Platelet Morphology Normal Polychromasia 1+ Anisocytosis 2+ [place] Cells 1+ Prothrombin Time 18.1 SEC (9.30-11.50) Prothromb Time International Ratio 1.8 (0.9-1.1) Activated Partial Thromboplast Time 38 SEC (23-33) Fibrinogen 178 mg/dL (200-400) Risk Assessment & Plan Assessment: [email or web address] Plan: mac Status Change Before Surgery: Yes - no longer actively bleeding. no longer an emergency. patient to be optimized prior to procedure. Selina Lao MD Nov 04, 2017 07:28
[2017-11-04] MEDS ORDERED: Midazolam 2mg/2ml Inj IVP PRN (07:30)
[2017-11-04] MEDS ORDERED: Atropine Inj 1mg/10ml Syr IV PRN (07:30)
[2017-11-04] MEDS ORDERED: DiphenhydrAMINE 50mg/ml Inj IVP PRN (07:30)
[2017-11-04] MEDS ORDERED: fentaNYL 100 mcg/2 mL IV PRN (07:30)
[2017-11-04 07:37] LABS: HEMATOCRIT 22.9 % (42.0-52.0); HEMOGLOBIN 7.9 G/DL (14.2-18.0); MEAN CORPUSCULAR VOLUME 98 FL (80-99); PLATELET COUNT 54 K/UL (150-450); RED BLOOD COUNT 2.34 M/UL (4.70-6.10); RED CELL DISTRIBUTION WIDTH 22.3 % (11.6-14.8)
[2017-11-04 08:22] LABS: ALANINE AMINOTRANSFERASE 30 U/L (12-78); ALBUMIN 2.6 G/DL (3.4-5.0); ALKALINE PHOSPHATASE 82 U/L (46-116); ANION GAP 8 mmol/L (5-15); ASPARTATE AMINO TRANSFERASE 73 U/L (15-37); BILIRUBIN,TOTAL 18.1 MG/DL (0.2-1.0); BLOOD UREA NITROGEN 24 mg/dL (7-18); CALCIUM 8.1 MG/DL (8.5-10.1); CARBON DIOXIDE 25 MMOL/L (21-32); CHLORIDE 116 MMOL/L (98-107); CREATININE 0.5 MG/DL (0.55-1.30); POTASSIUM 3.8 MMOL/L (3.5-5.1); SODIUM 149 MMOL/L (136-145)
[2017-11-04 08:28] LABS: BILIRUBIN,DIRECT 7.6 MG/DL (0.0-0.3)
[2017-11-04] MEDS: Lactulose 20gm/30ml UDC ORAL SCH ×3 (09:00→18:07)
[2017-11-04 09:07] LABS: INR 1.8 (0.9-1.1)
--- NOTE | 2017-11-04 09:54 | Diagnostic Imaging Report ---
Indication: Nasogastric tube placement Comparison: 16:04 Single view of the abdomen obtained Findings: NG tube is unchanged in position and remains satisfactory with both the proximal port and tip in the stomach. IMPRESSION: NG tube appears to be in good position
--- NOTE | 2017-11-04 11:09 | 48 Hour Post Anesthesia Eval ---
Post Anesthesia Evaluation Procedure: EGD Date of Evaluation: Nov 04, 2017 Time of Evaluation: 11:07 Blood Pressure Systolic: 138 0: 72 Pulse Rate: 115 Respiratory Rate: 19 Temperature (Fahrenheit): 98.7 O2 Sat by Pulse Oximetry: 99 Airway: patent Nausea: No Vomiting: No Pain Intensity: 0 Hydration Status: adequate Cardiopulmonary Status: returned to baseline, remains tachycardic, VSS otherwise Mental Status/LOC: patient returned to baseline Follow-up Care/Observations: remains on NCO2 Post-Anesthesia Complications: none Follow-up care needed: N/A Hannah Costa CRNA Nov 04, 2017 11:09
--- NOTE | 2017-11-04 11:28 | General Progress Note ---
Assessment/Plan Assessment/Plan S: I have sob O: appears fatigued. Nasa O2 in place. Soft restraint in Upper Extremity PHYSICAL EXAMINATION: GENERAL: A middle-aged male, cachectic with ascites and jaundice, lying in bed, lethargic, and confused, not in distress. HEENT: Normocephalic and atraumatic. Jaundiced sclera. Jaundiced oral mucosa. No exudate. NECK: Supple. No lymphadenopathy. CARDIOVASCULAR: He is tachycardic. There is a systolic murmur in the mitral valve area. LUNGS: Showed diminished breathing sounds at the right lower lobe with crackles.ABDOMEN: Soft. Distended with ascites. I could not appreciate hepatomegaly.EXTREMITY: With edema. No cyanosis.SKIN: With jaundice and spider angioma. Meds: reviewed and reconcilled ASSESSMENT AND RECOMMENDATION: 1. Acute Encephalopathy- multifactorial 2. Sepsis: likely SB Peritonisit, 2. Right pleural effusion due to advanced cirrhosis. Recommend thoracentesis to improve his respiratory condition. 3. Acute GI-Bleeding S/p esophagogastroduodenoscopy. Continue Protonix drip. Monitor H and H. transfuse blood as needed. 4. Liver cirrhosis, advanced, complicated with ascites and jaundice Plan: Post FFP and PRBC trasfusion Will proceed with Colonoscopy today Poor Prognosis Subjective Allergies: Coded Allergies: No Known Allergies (Unverified , 11/02/17) Objective Last 24 Hour Vital Signs Date Time Temp Pulse Resp B/P (MAP) Pulse Ox O2 Delivery O2 Flow Rate FiO2 11/04/17 11:09 209.7 115 19 99 11/04/17 11:00 105 19 131/66 (87) 99 11/04/17 10:00 115 19 138/72 (94) 99 11/04/17 09:00 109 19 134/68 (90) 90 11/04/17 08:00 98.7 108 19 131/81 (98) 81 98.7 11/04/17 08:00 96 11/04/17 08:00 Nasal Cannula 4.0 11/04/17 07:00 108 20 141/70 (93) 99 11/04/17 06:00 98.8 107 18 130/73 (92) 100 98.8 11/04/17 05:00 101 18 110/53 (72) 100 11/04/17 04:00 Nasal Cannula 3.0 11/04/17 04:00 108 18 136/65 (88) 99 11/04/17 04:00 107 11/04/17 03:00 108 18 152/85 (107) 100 11/04/17 02:00 108 18 131/65 (87) 98 11/04/17 00:55 98.7 113 20 152/70 (97) 98 98.7 11/04/17 00:40 98.7 114 20 142/72 (95) 98 98.7 11/04/17 00:00 Nasal Cannula 3.0 11/04/17 00:00 116 11/04/17 00:00 117 21 142/72 (95) 98 11/03/17 23:00 117 20 150/75 (100) 98 11/03/17 22:00 118 20 141/74 (96) 98 11/03/17 21:00 119 20 142/69 (93) 100 11/03/17 20:00 98.7 121 20 158/73 (101) 100 98.7 11/03/17 20:00 Nasal Cannula 3.0 11/03/17 20:00 120 11/03/17 19:19 98 Nasal Cannula 2.0 28 11/03/17 19:19 Nasal Cannula 2.0 28 11/03/17 19:00 114 20 149/60 (89) 100 11/03/17 18:00 119 20 121/66 (84) 100 11/03/17 17:00 118 19 125/64 (84) 100 11/03/17 16:00 120 19 122/54 (76) 100 11/03/17 16:00 Nasal Cannula 3.0 11/03/17 16:00 110 11/03/17 15:00 115 18 115/65 (82) 100 11/03/17 14:00 118 18 125/68 (87) 100 11/03/17 13:00 89.9 115 19 122/50 (74) 100 89.9 11/03/17 12:25 206.6 107 17 97 11/03/17 12:00 116 11/03/17 12:00 Nasal Cannula 3.0 11/03/17 12:00 110 18 115/66 (82) 100 Intake and Output 11/03/17 11/04/17 19:00 07:00 Intake Total 1285 ml 4625 ml Output Total 560 ml 3900 ml Balance 725 ml 725 ml IV Total 785 ml 875 ml Blood Product 250 ml Other 500 ml 3500 ml Output Urine Total 260 ml 500 ml Stool Total 300 ml 3400 ml # Bowel Movements 1 10 Laboratory Tests 11/03/17 20:40: White Blood Count 15.0H, Red Blood Count 2.07L, Hemoglobin 7.3L, Hematocrit 20.5L, Mean Corpuscular Volume 99, Mean Corpuscular Hemoglobin 35.2H, Mean Corpuscular Hemoglobin Concent 35.4, Red Cell Distribution Width 23.7H, Platelet Count 63L, Mean Platelet Volume 10.1, Neutrophils (%) (Auto) 85.6H, Lymphocytes (%) (Auto) 4.9L, Monocytes (%) (Auto) 9.1, Eosinophils (%) (Auto) 0.1, Basophils (%) (Auto) 0.3, Sodium Level 147H, Potassium Level 3.8, Chloride Level 115H, Carbon Dioxide Level 24, Anion Gap 8, Blood Urea Nitrogen 24H, Creatinine 0.6, Estimat Glomerular Filtration Rate > 60, Glucose Level 117H, Calcium Level 8.3L, Iron Level 137, Total Iron Binding Capacity 138L, Percent Iron Saturation 99H, Unsaturated Iron Binding 1L, Ferritin 1042H, Total Bilirubin 17.4H, Direct Bilirubin 6.8H, Aspartate Amino Transf (AST/SGOT) 81H, Alanine Aminotransferase (ALT/SGPT) 31, Alkaline Phosphatase 81, Lactate Dehydrogenase 357H, Total Protein 5.1L, Albumin 2.6L, Globulin 2.5, Albumin/ Globulin Ratio 1.0, Thyroid Stimulating Hormone (TSH) 0.069L, HIV (1&2) Antibody Rapid Negative 11/04/17 05:00: Stool Occult Blood [Pending] 11/04/17 07:04: White Blood Count 14.0H, Red Blood Count 2.34L, Hemoglobin 7.9L, Hematocrit 22.9L, Mean Corpuscular Volume 98, Mean Corpuscular Hemoglobin 33.6H, Mean Corpuscular Hemoglobin Concent 34.4, Red Cell Distribution Width 22.3H, Platelet Count 54L, Mean Platelet Volume 6.9, Neutrophils (%) (Auto) , Lymphocytes (%) (Auto) , Monocytes (%) (Auto) , Eosinophils (%) (Auto) , Basophils (%) (Auto) , Sodium Level 149H, Potassium Level 3.8, Chloride Level 116H, Carbon Dioxide Level 25, Anion Gap 8, Blood Urea Nitrogen 24H, Creatinine 0.5L, Estimat Glomerular Filtration Rate > 60, Glucose Level 106, Calcium Level 8.1L, Total Bilirubin 18.1H, Direct Bilirubin 7.6H, Aspartate Amino Transf (AST/ SGOT) 73H, Alanine Aminotransferase (ALT/SGPT) 30, Alkaline Phosphatase 82, Total Protein 5.2L, Albumin 2.6L, Globulin 2.6, Albumin/Globulin Ratio 1.0, Differential Total Cells Counted 100, Neutrophils % (Manual) 73, Lymphocytes % ( Manual) 2L, Monocytes % (Manual) 12H, Eosinophils % (Manual) 0, Basophils % ( Manual) 0, Myelocytes % 1H, Band Neutrophils 12H, Platelet Estimate DecreasedL, Platelet Morphology Normal, Polychromasia 1+, Anisocytosis 2+, Central Cells 1+, Reticulocyte Count [Pending], Sickle Cell Screen [Pending], Haptoglobin [Pending ], Prothrombin Time 18.1H, Prothromb Time International Ratio 1.8H, Activated Partial Thromboplast Time 38H, PTT Mixing Study [Pending], APTT Patient/Control Mix [Pending], Mix PTT Incubation Time [Pending], Mix PTT Normal/Saline 1:1 Immediate [Pending], Thrombin Time Normal Plasma [Pending], Fibrinogen 178L, Total Protein (PEP) [Pending], Albumin (PEP) [Pending], Globulin (PEP) [Pending] , Ckjxq-5-Wlejjoulm [Pending], Xcwta-8-Cmzlvfjzj [Pending], Beta Globulins [ Pending], Beta Gamma Globulin [Pending], PEP Abnormal Protein Bands [Pending], Protein Electrophoresis Interpret [Pending], Homocystine [Pending], Hepatitis A IgM Antibody [Pending], Hepatitis B Surface Antigen [Pending], Hepatitis B Core IgM Antibody [Pending], Hepatitis C Antibody [Pending] Height (Feet): 6 Height (Inches): 2.00 Weight (Pounds): 170 Fauzia Patel MD Nov 04, 2017 11:28
--- NOTE | 2017-11-04 12:24 | GI Progress Note ---
Assessment/Plan Problems: (1) ETOH abuse ICD Codes: F10.10 - Alcohol abuse, uncomplicated SNOMED: 59995393 (2) Cirrhosis of liver with ascites ICD Codes: K74.60 - Unspecified cirrhosis of liver; R18.8 - Other ascites SNOMED: 77781271, 200263581 (3) UGI bleed ICD Codes: K92.2 - Gastrointestinal hemorrhage, unspecified SNOMED: 91004857 (4) Anemia ICD Codes: D64.9 - Anemia, unspecified SNOMED: 214412323 (5) Hepatic encephalopathy ICD Codes: K72.90 - Hepatic failure, unspecified without coma SNOMED: 43796543 (6) Electrolyte imbalance ICD Codes: E87.8 - Other disorders of electrolyte and fluid balance, not elsewhere classified SNOMED: 925291343 (7) Esophageal varices ICD Codes: I85.00 - Esophageal varices without bleeding SNOMED: 73640756 (8) Jaundice ICD Codes: R17 - Unspecified jaundice SNOMED: 66412877 Status: stable Status Narrative Discussed with Dr. Fritz. Assessment/Plan s/p EGD SUMMARY OF FINDINGS: 1. No evidence of any active upper GI bleeding. 2. Minimal upper esophagitis. 3. Gastritis. RECOMMENDATIONS: colonoscopy cancelled, no recurrent bleed. Monitor hemoglobin and hematocrit. Transfuse as needed. Correct the coagulopathy. CLD, adv to low sodium after paracentesis vit K x1 OB stool pending fu labs The patient was seen and examined at bedside and all new and available data was reviewed in the patients chart. I agree with the above findings, impression and plan. (Patient seen earlier today. Signature stamp does not reflect patient encounter time.). - Morgan Fritz MD Subjective Gastrointestinal/Abdominal: Reports: no symptoms Objective Last 24 Hour Vital Signs Date Time Temp Pulse Resp B/P (MAP) Pulse Ox O2 Delivery O2 Flow Rate FiO2 11/04/17 11:09 209.7 115 19 99 11/04/17 11:00 105 19 131/66 (87) 99 11/04/17 10:00 115 19 138/72 (94) 99 11/04/17 09:00 109 19 134/68 (90) 90 11/04/17 08:00 98.7 108 19 131/81 (98) 81 98.7 11/04/17 08:00 96 11/04/17 08:00 Nasal Cannula 4.0 11/04/17 07:00 108 20 141/70 (93) 99 11/04/17 06:00 98.8 107 18 130/73 (92) 100 98.8 11/04/17 05:00 101 18 110/53 (72) 100 11/04/17 04:00 Nasal Cannula 3.0 11/04/17 04:00 108 18 136/65 (88) 99 11/04/17 04:00 107 11/04/17 03:00 108 18 152/85 (107) 100 11/04/17 02:00 108 18 131/65 (87) 98 11/04/17 00:55 98.7 113 20 152/70 (97) 98 98.7 11/04/17 00:40 98.7 114 20 142/72 (95) 98 98.7 11/04/17 00:00 Nasal Cannula 3.0 11/04/17 00:00 116 11/04/17 00:00 117 21 142/72 (95) 98 11/03/17 23:00 117 20 150/75 (100) 98 11/03/17 22:00 118 20 141/74 (96) 98 11/03/17 21:00 119 20 142/69 (93) 100 11/03/17 20:00 98.7 121 20 158/73 (101) 100 98.7 11/03/17 20:00 Nasal Cannula 3.0 11/03/17 20:00 120 11/03/17 19:19 98 Nasal Cannula 2.0 28 11/03/17 19:19 Nasal Cannula 2.0 28 11/03/17 19:00 114 20 149/60 (89) 100 11/03/17 18:00 119 20 121/66 (84) 100 11/03/17 17:00 118 19 125/64 (84) 100 11/03/17 16:00 120 19 122/54 (76) 100 11/03/17 16:00 Nasal Cannula 3.0 11/03/17 16:00 110 11/03/17 15:00 115 18 115/65 (82) 100 11/03/17 14:00 118 18 125/68 (87) 100 11/03/17 13:00 89.9 115 19 122/50 (74) 100 89.9 11/03/17 12:25 206.6 107 17 97 Intake and Output 11/03/17 11/04/17 19:00 07:00 Intake Total 1285 ml 4625 ml Output Total 560 ml 3900 ml Balance 725 ml 725 ml IV Total 785 ml 875 ml Blood Product 250 ml Other 500 ml 3500 ml Output Urine Total 260 ml 500 ml Stool Total 300 ml 3400 ml # Bowel Movements 1 10 Laboratory Tests Test 11/03/17 20:40 11/04/17 05:00 11/04/17 07:04 White Blood Count 15.0 K/UL (4.8-10.8) H 14.0 K/UL (4.8-10.8) H Red Blood Count 2.07 M/UL (4.70-6.10) L 2.34 M/UL (4.70-6.10) L Hemoglobin 7.3 G/DL (14.2-18.0) L 7.9 G/DL (14.2-18.0) L Hematocrit 20.5 % (42.0-52.0) L 22.9 % (42.0-52.0) L Mean Corpuscular Volume 99 FL (80-99) 98 FL (80-99) Mean Corpuscular Hemoglobin 35.2 PG (27.0-31.0) H 33.6 PG (27.0-31.0) H Mean Corpuscular Hemoglobin Concent 35.4 G/DL (32.0-36.0) 34.4 G/DL (32.0-36.0) Red Cell Distribution Width 23.7 % (11.6-14.8) H 22.3 % (11.6-14.8) H Platelet Count 63 K/UL (150-450) L 54 K/UL (150-450) L Mean Platelet Volume 10.1 FL (6.5-10.1) 6.9 FL (6.5-10.1) Neutrophils (%) (Auto) 85.6 % (45.0-75.0) H % (45.0-75.0) Lymphocytes (%) (Auto) 4.9 % (20.0-45.0) L % (20.0-45.0) Monocytes (%) (Auto) 9.1 % (1.0-10.0) % (1.0-10.0) Eosinophils (%) (Auto) 0.1 % (0.0-3.0) % (0.0-3.0) Basophils (%) (Auto) 0.3 % (0.0-2.0) % (0.0-2.0) Sodium Level 147 MMOL/L (136-145) H 149 MMOL/L (136-145) H Potassium Level 3.8 MMOL/L (3.5-5.1) 3.8 MMOL/L (3.5-5.1) Chloride Level 115 MMOL/L (98-107) H 116 MMOL/L (98-107) H Carbon Dioxide Level 24 MMOL/L (21-32) 25 MMOL/L (21-32) Anion Gap 8 mmol/L (5-15) 8 mmol/L (5-15) Blood Urea Nitrogen 24 mg/dL (7-18) H 24 mg/dL (7-18) H Creatinine 0.6 MG/DL (0.55-1.30) 0.5 MG/DL (0.55-1.30) L Estimat Glomerular Filtration Rate > 60 mL/min (>60) > 60 mL/min (>60) Glucose Level 117 MG/DL (74-106) H 106 MG/DL (74-106) Calcium Level 8.3 MG/DL (8.5-10.1) L 8.1 MG/DL (8.5-10.1) L Iron Level 137 ug/dL (50-175) Total Iron Binding Capacity 138 ug/dL (250-450) L Percent Iron Saturation 99 % (15-50) H Unsaturated Iron Binding 1 ug/dL (112-346) L Ferritin 1042 NG/ML (8-388) H Total Bilirubin 17.4 MG/DL (0.2-1.0) H 18.1 MG/DL (0.2-1.0) H Direct Bilirubin 6.8 MG/DL (0.0-0.3) H 7.6 MG/DL (0.0-0.3) H Aspartate Amino Transf (AST/SGOT) 81 U/L (15-37) H 73 U/L (15-37) H Alanine Aminotransferase (ALT/SGPT) 31 U/L (12-78) 30 U/L (12-78) Alkaline Phosphatase 81 U/L (46-116) 82 U/L (46-116) Lactate Dehydrogenase 357 U/L (81-234) H Total Protein 5.1 G/DL (6.4-8.2) L 5.2 G/DL (6.4-8.2) L Albumin 2.6 G/DL (3.4-5.0) L 2.6 G/DL (3.4-5.0) L Globulin 2.5 g/dL 2.6 g/dL Albumin/Globulin Ratio 1.0 (1.0-2.7) 1.0 (1.0-2.7) Thyroid Stimulating Hormone (TSH) 0.069 uiU/mL (0.358-3.740) HIV (1&2) Antibody Rapid Negative (NEGATIVE) Stool Occult Blood Pending Differential Total Cells Counted 100 Neutrophils % (Manual) 73 % (45-75) Lymphocytes % (Manual) 2 % (20-45) L Monocytes % (Manual) 12 % (1-10) H Eosinophils % (Manual) 0 % (0-3) Basophils % (Manual) 0 % (0-2) Myelocytes % 1 % (0-0) H Band Neutrophils 12 % (0-8) H Platelet Estimate Decreased L Platelet Morphology Normal Polychromasia 1+ Anisocytosis 2+ [place] Cells 1+ Reticulocyte Count Pending Sickle Cell Screen Pending Haptoglobin Pending Prothrombin Time 18.1 SEC (9.30-11.50) H Prothromb Time International Ratio 1.8 (0.9-1.1) H Activated Partial Thromboplast Time 38 SEC (23-33) H PTT Mixing Study Pending APTT Patient/Control Mix Pending Mix PTT Incubation Time Pending Mix PTT Normal/Saline 1:1 Immediate Pending Thrombin Time Normal Plasma Pending Fibrinogen 178 mg/dL (200-400) L Total Protein (PEP) Pending Albumin (PEP) Pending Globulin (PEP) Pending Xohhd-4-Bjeqsscth Pending Jfcjn-4-Mtlgnxrqs Pending Beta Globulins Pending Beta Gamma Globulin Pending PEP Abnormal Protein Bands Pending Protein Electrophoresis Interpret Pending Homocystine Pending Hepatitis A IgM Antibody Pending Hepatitis B Surface Antigen Pending Hepatitis B Core IgM Antibody Pending Hepatitis C Antibody Pending Height (Feet): 6 Height (Inches): 2.00 Weight (Pounds): 170 General Appearance: WD/WN, no apparent distress, alert, thin Cardiovascular: normal rate Respiratory/Chest: normal breath sounds, no respiratory distress Abdominal Exam: normal bowel sounds, non tender, soft Extremities: non-tender Pao Bolaños NP Nov 04, 2017 12:24
[2017-11-04] MEDS ORDERED: Phytonadione 1 MG in D5W 55 ML IVPB ONE (13:30)
--- NOTE | 2017-11-04 13:44 | Diagnostic Imaging Report ---
Indication: Abdominal distention. Elevated liver function tests Technique: Grayscale and duplex Doppler imaging of the abdomen performed. Comparison: None Findings: The liver is notable for marked surface nodularity consistent with cirrhosis. The gallbladder shows multiple intraluminal stones. The demonstrated part of the pancreas, aorta and IVC show no abnormalities although not well visualized. Both kidneys appear unremarkable. There is moderate ascites. The spleen is enlarged measuring 17 cm. There is no biliary ductal dilatation identified. Doppler evaluation of the main portal vein shows patency. There is no ascites. No hydronephrosis seen. There are bilateral pleural effusions. Impression: Chronic liver disease/cirrhosis with evidence of portal hypertension including moderate ascites and splenomegaly. Cholelithiasis. Bilateral pleural effusions
--- NOTE | 2017-11-04 14:55 | Infectious Diseases Prog Note ---
Assessment/Plan Problems: (1) Leukocytosis, unspecified Assessment & Plan: not due to sepsis, with negative blood culture so far , continue ceftriaxon empirically (2) Pleural effusion on right Assessment & Plan: suspect due to liver cirrhosis , recommend thoracentesis and fluids culture with cytology (3) Cirrhosis of liver with ascites Assessment & Plan: advanced complicated with UGI bleeding, on PPI and steroids per GI , poor prognosis (4) UGI bleed Assessment & Plan: due to liver cirrhosis with no esophageal varices on EGD , continue PPI, transfuse blood as needed, Gi is following (5) Hepatic encephalopathy Assessment & Plan: due to liver cirrhosis , continue lactulose and rifixamin (6) Jaundice Subjective Constitutional: Reports: anorexia HEENT: Reports: no symptoms Respiratory: Reports: shortness of breath, other - wheezing Cardiovascular: Reports: no symptoms Gastrointestinal/Abdominal: Reports: diarrhea, bloating Genitourinary: Reports: no symptoms Neurologic: Reports: numbness, weakness Psychiatric: Reports: no symptoms Skin: Reports: no symptoms Endocrine: Reports: no symptoms Hematologic: Reports: no symptoms Musculoskeletal: Reports: no symptoms Allergies: Coded Allergies: No Known Allergies (Unverified , 11/02/17) Objective Vital Signs Last 24 Hour Vital Signs Date Time Temp Pulse Resp B/P (MAP) Pulse Ox O2 Delivery O2 Flow Rate FiO2 11/04/17 11:09 209.7 115 19 99 11/04/17 11:00 105 19 131/66 (87) 99 11/04/17 10:00 115 19 138/72 (94) 99 11/04/17 09:00 109 19 134/68 (90) 90 11/04/17 08:00 98.7 108 19 131/81 (98) 81 98.7 11/04/17 08:00 96 11/04/17 08:00 Nasal Cannula 4.0 11/04/17 07:00 108 20 141/70 (93) 99 11/04/17 06:00 98.8 107 18 130/73 (92) 100 98.8 11/04/17 05:00 101 18 110/53 (72) 100 11/04/17 04:00 Nasal Cannula 3.0 11/04/17 04:00 108 18 136/65 (88) 99 11/04/17 04:00 107 11/04/17 03:00 108 18 152/85 (107) 100 11/04/17 02:00 108 18 131/65 (87) 98 11/04/17 00:55 98.7 113 20 152/70 (97) 98 98.7 11/04/17 00:40 98.7 114 20 142/72 (95) 98 98.7 11/04/17 00:00 Nasal Cannula 3.0 11/04/17 00:00 116 11/04/17 00:00 117 21 142/72 (95) 98 11/03/17 23:00 117 20 150/75 (100) 98 11/03/17 22:00 118 20 141/74 (96) 98 11/03/17 21:00 119 20 142/69 (93) 100 11/03/17 20:00 98.7 121 20 158/73 (101) 100 98.7 11/03/17 20:00 Nasal Cannula 3.0 11/03/17 20:00 120 11/03/17 19:19 98 Nasal Cannula 2.0 28 11/03/17 19:19 Nasal Cannula 2.0 28 11/03/17 19:00 114 20 149/60 (89) 100 11/03/17 18:00 119 20 121/66 (84) 100 11/03/17 17:00 118 19 125/64 (84) 100 11/03/17 16:00 120 19 122/54 (76) 100 11/03/17 16:00 Nasal Cannula 3.0 11/03/17 16:00 110 11/03/17 15:00 115 18 115/65 (82) 100 Height (Feet): 6 Height (Inches): 2.00 Weight (Pounds): 170 General Appearance: cachetic, other - jaundiced HEENT: normocephalic, atraumatic, anicteric, mucous membranes moist, PERRL Respiratory/Chest: no respiratory distress, no accessory muscle use, decreased breath sounds, expiratory wheezing Cardiovascular: normal peripheral pulses, normal rate, regular rhythm, no gallop/murmur, no JVD Abdomen: normal bowel sounds, soft, non tender, no organomegaly, non distended , no mass, no scars Extremities: no cyanosis, no clubbing Skin: no rash, no lesions, no ulcers Neurologic/Psychiatric: alert, oriented x 3 Lymphatic: no neck adenopathy, no groin adenopathy Musculoskeletal: normal muscle bulk, no effusion Microbiology Date/Time Source Procedure Growth Status 11/02/17 14:00 Blood Blood Culture - Preliminary NO GROWTH AFTER 24 HOURS Resulted 11/02/17 13:50 Blood Blood Culture - Preliminary NO GROWTH AFTER 24 HOURS Resulted 11/02/17 20:51 Rectum Received Laboratory Tests Test 11/03/17 20:40 11/04/17 05:00 11/04/17 07:04 White Blood Count 15.0 K/UL (4.8-10.8) H 14.0 K/UL (4.8-10.8) H Red Blood Count 2.07 M/UL (4.70-6.10) L 2.34 M/UL (4.70-6.10) L Hemoglobin 7.3 G/DL (14.2-18.0) L 7.9 G/DL (14.2-18.0) L Hematocrit 20.5 % (42.0-52.0) L 22.9 % (42.0-52.0) L Mean Corpuscular Volume 99 FL (80-99) 98 FL (80-99) Mean Corpuscular Hemoglobin 35.2 PG (27.0-31.0) H 33.6 PG (27.0-31.0) H Mean Corpuscular Hemoglobin Concent 35.4 G/DL (32.0-36.0) 34.4 G/DL (32.0-36.0) Red Cell Distribution Width 23.7 % (11.6-14.8) H 22.3 % (11.6-14.8) H Platelet Count 63 K/UL (150-450) L 54 K/UL (150-450) L Mean Platelet Volume 10.1 FL (6.5-10.1) 6.9 FL (6.5-10.1) Neutrophils (%) (Auto) 85.6 % (45.0-75.0) H % (45.0-75.0) Lymphocytes (%) (Auto) 4.9 % (20.0-45.0) L % (20.0-45.0) Monocytes (%) (Auto) 9.1 % (1.0-10.0) % (1.0-10.0) Eosinophils (%) (Auto) 0.1 % (0.0-3.0) % (0.0-3.0) Basophils (%) (Auto) 0.3 % (0.0-2.0) % (0.0-2.0) Sodium Level 147 MMOL/L (136-145) H 149 MMOL/L (136-145) H Potassium Level 3.8 MMOL/L (3.5-5.1) 3.8 MMOL/L (3.5-5.1) Chloride Level 115 MMOL/L (98-107) H 116 MMOL/L (98-107) H Carbon Dioxide Level 24 MMOL/L (21-32) 25 MMOL/L (21-32) Anion Gap 8 mmol/L (5-15) 8 mmol/L (5-15) Blood Urea Nitrogen 24 mg/dL (7-18) H 24 mg/dL (7-18) H Creatinine 0.6 MG/DL (0.55-1.30) 0.5 MG/DL (0.55-1.30) L Estimat Glomerular Filtration Rate > 60 mL/min (>60) > 60 mL/min (>60) Glucose Level 117 MG/DL (74-106) H 106 MG/DL (74-106) Calcium Level 8.3 MG/DL (8.5-10.1) L 8.1 MG/DL (8.5-10.1) L Iron Level 137 ug/dL (50-175) Total Iron Binding Capacity 138 ug/dL (250-450) L Percent Iron Saturation 99 % (15-50) H Unsaturated Iron Binding 1 ug/dL (112-346) L Ferritin 1042 NG/ML (8-388) H Total Bilirubin 17.4 MG/DL (0.2-1.0) H 18.1 MG/DL (0.2-1.0) H Direct Bilirubin 6.8 MG/DL (0.0-0.3) H 7.6 MG/DL (0.0-0.3) H Aspartate Amino Transf (AST/SGOT) 81 U/L (15-37) H 73 U/L (15-37) H Alanine Aminotransferase (ALT/SGPT) 31 U/L (12-78) 30 U/L (12-78) Alkaline Phosphatase 81 U/L (46-116) 82 U/L (46-116) Lactate Dehydrogenase 357 U/L (81-234) H Total Protein 5.1 G/DL (6.4-8.2) L 5.2 G/DL (6.4-8.2) L Albumin 2.6 G/DL (3.4-5.0) L 2.6 G/DL (3.4-5.0) L Globulin 2.5 g/dL 2.6 g/dL Albumin/Globulin Ratio 1.0 (1.0-2.7) 1.0 (1.0-2.7) Thyroid Stimulating Hormone (TSH) 0.069 uiU/mL (0.358-3.740) HIV (1&2) Antibody Rapid Negative (NEGATIVE) Stool Occult Blood Positive (NEGATIVE) Differential Total Cells Counted 100 Neutrophils % (Manual) 73 % (45-75) Lymphocytes % (Manual) 2 % (20-45) L Monocytes % (Manual) 12 % (1-10) H Eosinophils % (Manual) 0 % (0-3) Basophils % (Manual) 0 % (0-2) Myelocytes % 1 % (0-0) H Band Neutrophils 12 % (0-8) H Platelet Estimate Decreased L Platelet Morphology Normal Polychromasia 1+ Anisocytosis 2+ [place] Cells 1+ Reticulocyte Count 4.9 % (0.0-2.0) H Sickle Cell Screen Pending Haptoglobin Pending Prothrombin Time 18.1 SEC (9.30-11.50) H Prothromb Time International Ratio 1.8 (0.9-1.1) H Activated Partial Thromboplast Time 38 SEC (23-33) H PTT Mixing Study Pending APTT Patient/Control Mix Pending Mix PTT Incubation Time Pending Mix PTT Normal/Saline 1:1 Immediate Pending Thrombin Time Normal Plasma Pending Fibrinogen 178 mg/dL (200-400) L Total Protein (PEP) Pending Albumin (PEP) Pending Globulin (PEP) Pending Kebsy-5-Akmnedqxe Pending Yhifj-0-Possbalfn Pending Beta Globulins Pending Beta Gamma Globulin Pending PEP Abnormal Protein Bands Pending Protein Electrophoresis Interpret Pending Homocystine Pending Hepatitis A IgM Antibody Pending Hepatitis B Surface Antigen Pending Hepatitis B Core IgM Antibody Pending Hepatitis C Antibody Pending Current Medications Medications (Trade) Dose Ordered Sig/Fish Route PRN Reason Start Time Stop Time Status Last Admin Dose Admin Ceftriaxone Sodium 1 gm/ Sodium Chloride 55 ml @ 110 mls/hr Q24H IVPB 11/02/17 17:00 11/09/17 16:59 11/03/17 17:00 Lactulose (Cephulac) 30 gm TID ORAL 11/02/17 18:00 12/02/17 17:59 11/03/17 18:00 Pantoprazole (Protonix) 40 mg EVERY 12 HOURS IVP 11/04/17 21:00 12/04/17 20:59 Prednisone (predniSONE) 40 mg DAILY ORAL 11/02/17 15:45 12/02/17 15:44 Rifaximin (Xifaxan) 550 mg BID ORAL 11/02/17 18:00 11/09/17 17:59 11/04/17 09:00 Marybeth Crouch M.D. Nov 04, 2017 14:55
--- NOTE | 2017-11-04 16:35 | Consultation ---
Consult Note Consult Note DATE OF CONSULTATION: 11/03/2017 HEMATOLOGY-ONCOLOGY CONSULTATION REFERRING PHYSICIAN: Fauzia Chavez REASON FOR CONSULTATION: Evaluation of anemia and thrombocytopenia HISTORY OF PRESENT ILLNESS: The patient is a 52-year-old male with past medical history of liver cirrhosis due to alcohol abuse, ascites, and jaundice, was brought into [facility] emergency room for recurrent hematemesis. The patient normally drinks 1 bottle of vodka per day for many years. Denied using any tobacco or any other drugs. The patient was found to be jaundiced and has dry blood in his nares and on his lips with jaundice all over his skin with abdominal distention concerning for ascites and he was encephalopathic probably due to liver cirrhosis. The patient had extensive workup in the emergency room including white count, which checked out to be high concerning for sepsis,so he received vancomycin and Zosyn and Infectious Disease consultation was requested for antibiotics treatment and further management. I have been consulted for the evaluation of anemia and thrombocytopenia. Current hgb and plt Anemia w/u to be ordered. PAST MEDICAL HISTORY: Significant for liver cirrhosis due to alcohol ascites and jaundice. PAST SURGICAL HISTORY: Negative. MEDICATIONS: He received vancomycin and Zosyn in the emergency room and now, he is on ceftriaxone by gastrointestinal team. ALLERGIES: He has no known drug allergy. FAMILY HISTORY: Not contributory. SOCIAL HISTORY: The patient lives at home alone. He drinks 1 bottle of vodka per day for many years. No drugs or tobacco. REVIEW OF SYSTEMS: A 14-point of system reviewed were all negative apart from the one I mentioned above. PHYSICAL EXAMINATION: VITAL SIGNS: Temperature 98.4, pulse 120, respirations 22, blood pressure 105/pulse, and saturation 96% on room air. GENERAL: A middle-aged male, cachectic with ascites and jaundice, lying in bed, lethargic, and confused, not in distress. HEENT: Normocephalic and atraumatic. Jaundiced sclera. Jaundiced oral mucosa. No exudate. NECK: Supple. No lymphadenopathy. CARDIOVASCULAR: He is tachycardic. There is a systolic murmur in the mitral valve area. LUNGS: Showed diminished breathing sounds at the right lower lobe with crackles. ABDOMEN: Soft. Distended with ascites. I could not appreciate hepatomegaly. EXTREMITY: With edema. No cyanosis. SKIN: With jaundice and spider angioma. LABORATORY DATA: Laboratories showed white count of 16.6, hemoglobin of 8.5, and platelet count of 91,000. BUN of 15 and, creatinine of 0.7. AST of 124 and ALT of 59. IMAGING: Chest x-ray showed right basilar opacity likely large right pleural effusion with underlying parenchymal disease. Assessment/Plan # Anemia of chronic disease. Baseline range is 8-10 also is due to myelosuppresions --> Anemia w/u to be ordered. --> Cont to monitor for stability --> Hgb goal above 7 # Thrombocytopenia. Related to underlying cirrhosis. as well as splenomegaly --> If the plt count less than 10k, transfuse immediately. If less than 20k and febrile, transfuse. If less than 50k and bleeding, transfuse. If neurosurgical bleed, transfuse as well. --> Cont abx with ID service. Appreciate recs. --> Cont to monitor PLT count for improvement. --> US of the abdomen has been reviewed # Acute Encephalopathy- multifactorial # Sepsis: likely SB Peritonitis # Right pleural effusion due to advanced cirrhosis. --> Recommend thoracentesis to improve his respiratory condition. # Acute GI-Bleeding S/p esophagogastroduodenoscopy. Continue Protonix drip. --> Monitor H and H. transfuse blood as needed. # Liver cirrhosis, advanced, complicated with ascites and jaundice. I GREATLY APPRECIATE THE CONSULTATION. Sahil Agee MD Nov 04, 2017 16:35
--- NOTE | 2017-11-04 16:39 | Diagnostic Imaging Report ---
Indications: Ascites Procedure: Informed consent obtained. Ultrasound used to localize optimal puncture site. Sterile prepping and draping over the optimum site. Local anesthesia with 1% lidocaine. Under real-time ultrasound guidance, puncture of the peritoneal space performed using paracentesis needle. Digital image was saved and archived. Stylet removed. Catheter placed to vacuum bottle suction. Fluid was aspirated. Patient tolerated procedure well, without immediate complication. Findings: Followup sonography demonstrates complete resolution of peritoneal fluid Impression: Successful ultrasound-guided paracentesis, yielding 4.3 liters of fluid
[2017-11-04] MEDS: cefTRIAXone 1 GM in NS 55 ML IVPB SCH (18:08)
[2017-11-04] MEDS: Pantoprazole Inj IVP SCH (20:39)
[2017-11-04] MEDS ORDERED: Pantoprazole Inj IVP SCH (21:00)
[2017-11-05] VITALS: BP 120/71
[2017-11-05 04:00] VITALS: BP 115/48
[2017-11-05 06:08] LABS: HEMOGLOBIN 7.2 G/DL (14.2-18.0); MEAN CORPUSCULAR VOLUME 97 FL (80-99); PLATELET COUNT 46 K/UL (150-450); RED BLOOD COUNT 2.06 M/UL (4.70-6.10); RED CELL DISTRIBUTION WIDTH 21.1 % (11.6-14.8); WHITE BLOOD COUNT 10.7 K/UL (4.8-10.8)
[2017-11-05 06:24] LABS: ALANINE AMINOTRANSFERASE 28 U/L (12-78); ALBUMIN 2.2 G/DL (3.4-5.0); ALBUMIN/GLOBULIN RATIO 0.9 (1.0-2.7); ALKALINE PHOSPHATASE 76 U/L (46-116); ANION GAP 7 mmol/L (5-15); ASPARTATE AMINO TRANSFERASE 49 U/L (15-37); BILIRUBIN,TOTAL 13.9 MG/DL (0.2-1.0); BLOOD UREA NITROGEN 20 mg/dL (7-18); CALCIUM 8.1 MG/DL (8.5-10.1); CARBON DIOXIDE 24 MMOL/L (21-32); CHLORIDE 115 MMOL/L (98-107); CREATININE 0.6 MG/DL (0.55-1.30); PHOSPHORUS 2.7 MG/DL (2.5-4.9); POTASSIUM 3.5 MMOL/L (3.5-5.1); SODIUM 146 MMOL/L (136-145)
[2017-11-05 06:58] LABS: BILIRUBIN,DIRECT 6.2 MG/DL (0.0-0.3)
[2017-11-05 08:00] VITALS: BP 121/67
[2017-11-05] MEDS: Lactulose 20gm/30ml UDC ORAL SCH ×2 (09:35→12:59)
[2017-11-05] MEDS: Pantoprazole Inj IVP SCH ×2 (09:37→21:21)
--- NOTE | 2017-11-05 10:17 | Consultation ---
History of Present Illness General Date patient seen: Nov 05, 2017 Chief Complaint: Abdominal Pain Reason for Consultation: UGIB Present Illness HPI 52-year-old male with past medical history of liver cirrhosis due to alcohol abuse, ascites, and jaundice, was brought into [facility] emergency room after being noted to have bloody bowel movement and was laying in pool of bloody stool. Patient known history of prior upper GI bleed from what he states but is overall a poor historian. Transfused blood products, resuscitated, and recently had EGD. No evidence of active bleeding noted. He is no longer having bloody BM's and most recent BM yesterday was normal. During hospital stay was noted to have wounds on sacral and posterior thigh area. surgery called to evaluate and assist with care and management. patient seen, chart reviewed, patient examined. Allergies: Coded Allergies: No Known Allergies (Unverified , 11/02/17) Medication History No Active Prescriptions or Reported Meds Patient History Limited by: other - poor historian History Provided By: Patient, Medical Record, PMD Healthcare decision maker N Resuscitation status Full Code Advanced Directive on File Past Medical/Surgical History Past Medical/Surgical History: (1) Skin abnormalities (2) Lower GI bleed requiring more than 4 units of blood in 24 hours, ICU, or surgery (3) Esophageal varices (4) Jaundice (5) Electrolyte imbalance (6) Hepatic encephalopathy (7) Anemia (8) UGI bleed (9) Cirrhosis of liver with ascites (10) Leukocytosis, unspecified (11) Pleural effusion on right Review of Systems All Other Systems: negative except mentioned in HPI Physical Exam General Appearance: no apparent distress, alert Lines, tubes and drains: peripheral HEENT: normocephalic, atraumatic, mucous membranes moist Neck: normal inspection Respiratory/Chest: normal breath sounds, no respiratory distress, no accessory muscle use Cardiovascular/Chest: normal peripheral pulses, normal rate, regular rhythm Abdomen: normal bowel sounds, non tender, soft, no organomegaly, no mass Extremities: normal range of motion, non-tender, normal inspection Skin Exam: other Neurologic: alert, responsive Last 24 Hour Vital Signs Date Time Temp Pulse Resp B/P (MAP) Pulse Ox O2 Delivery O2 Flow Rate FiO2 11/05/17 08:00 98.1 100 24 121/67 (85) 95 98.1 11/05/17 04:00 101 11/05/17 04:00 98.0 87 25 115/48 (70) 100 98.0 11/05/17 00:00 100 11/05/17 00:00 98.0 79 22 120/71 (87) 100 98.0 11/04/17 20:00 98.1 108 21 124/65 (84) 96 98.1 11/04/17 20:00 102 11/04/17 16:00 Nasal Cannula 4.0 11/04/17 16:00 98.6 105 16 136/60 (85) 100 98.6 11/04/17 16:00 105 11/04/17 15:00 110 20 145/72 (96) 99 11/04/17 14:00 111 21 132/55 (80) 99 11/04/17 13:00 109 18 124/65 (84) 99 11/04/17 12:00 Nasal Cannula 4.0 11/04/17 12:00 106 11/04/17 12:00 98.6 106 18 146/69 (94) 81 98.6 11/04/17 11:09 209.7 115 19 99 11/04/17 11:00 105 19 131/66 (87) 99 Intake and Output 11/04/17 11/05/17 19:00 07:00 Intake Total 1030.5 ml Balance 1030.5 ml Intake Oral 600 ml IV Total 430.5 ml # Voids 1 # Bowel Movements 2 Laboratory Tests Test 11/04/17 15:55 11/05/17 05:46 Body Fluid Albumin Pending White Blood Count 10.7 K/UL (4.8-10.8) Red Blood Count 2.06 M/UL (4.70-6.10) L Hemoglobin 7.2 G/DL (14.2-18.0) L Hematocrit 20.0 % (42.0-52.0) L Mean Corpuscular Volume 97 FL (80-99) Mean Corpuscular Hemoglobin 35.1 PG (27.0-31.0) H Mean Corpuscular Hemoglobin Concent 36.2 G/DL (32.0-36.0) H Red Cell Distribution Width 21.1 % (11.6-14.8) H Platelet Count 46 K/UL (150-450) L Mean Platelet Volume 8.7 FL (6.5-10.1) Neutrophils (%) (Auto) % (45.0-75.0) Lymphocytes (%) (Auto) % (20.0-45.0) Monocytes (%) (Auto) % (1.0-10.0) Eosinophils (%) (Auto) % (0.0-3.0) Basophils (%) (Auto) % (0.0-2.0) Neutrophils % (Manual) Pending Lymphocytes % (Manual) Pending Platelet Estimate Pending Platelet Morphology Pending Sodium Level 146 MMOL/L (136-145) H Potassium Level 3.5 MMOL/L (3.5-5.1) Chloride Level 115 MMOL/L (98-107) H Carbon Dioxide Level 24 MMOL/L (21-32) Anion Gap 7 mmol/L (5-15) Blood Urea Nitrogen 20 mg/dL (7-18) H Creatinine 0.6 MG/DL (0.55-1.30) Estimat Glomerular Filtration Rate > 60 mL/min (>60) Glucose Level 106 MG/DL (74-106) Calcium Level 8.1 MG/DL (8.5-10.1) L Phosphorus Level 2.7 MG/DL (2.5-4.9) Magnesium Level 1.8 MG/DL (1.8-2.4) Total Bilirubin 13.9 MG/DL (0.2-1.0) H Direct Bilirubin 6.2 MG/DL (0.0-0.3) H Aspartate Amino Transf (AST/SGOT) 49 U/L (15-37) H Alanine Aminotransferase (ALT/SGPT) 28 U/L (12-78) Alkaline Phosphatase 76 U/L (46-116) Total Protein 4.6 G/DL (6.4-8.2) L Albumin 2.2 G/DL (3.4-5.0) L Globulin 2.4 g/dL Albumin/Globulin Ratio 0.9 (1.0-2.7) L Microbiology Date/Time Source Procedure Growth Status 11/04/17 15:55 Abdominal Fluid Gram Stain - Final Resulted 11/04/17 15:55 Abdominal Fluid Body Fluid Culture Pending Resulted Height (Feet): 6 Height (Inches): 2.00 Weight (Pounds): 78 Medications Current Medications Medications (Trade) Dose Ordered Sig/Fish Route PRN Reason Start Time Stop Time Status Last Admin Dose Admin Ceftriaxone Sodium 1 gm/ Sodium Chloride 55 ml @ 110 mls/hr Q24H IVPB 11/04/17 17:00 11/09/17 16:59 11/04/17 18:08 Lactulose (Cephulac) 30 gm TID ORAL 11/04/17 18:00 12/02/17 17:59 11/05/17 09:35 Pantoprazole (Protonix) 40 mg EVERY 12 HOURS IVP 11/04/17 21:00 12/04/17 20:59 11/05/17 09:37 Prednisone (predniSONE) 40 mg DAILY ORAL 11/05/17 09:00 12/02/17 15:44 11/05/17 09:36 Rifaximin (Xifaxan) 550 mg BID ORAL 11/04/17 18:00 11/09/17 17:59 11/05/17 09:37 Assessment/Plan Problem List: (1) UGI bleed Assessment & Plan: seems to have stopped. EGD without active bleeding Colonoscopy deferred at this time appreciate GI input trend labs unfortunately given history poor prognosis. ICD Codes: K92.2 - Gastrointestinal hemorrhage, unspecified SNOMED: 68161042 (2) Skin abnormalities Assessment & Plan: sacral and posterior thigh wounds partial thickness stage II wounds with epidermal loss and dermal irritation. etiology does not seem to be pressure; possibly from laying in bloody stool for prolonged period of time? no history of injury or trauma -wash site daily and prn -skin protectant daily and prn -okay for non adherent dressings. thank you ICD Codes: L98.9 - Disorder of the skin and subcutaneous tissue, unspecified SNOMED: 53607261 Status: unchanged PaulmekhiclintondestinOrville Nov 05, 2017 10:17
--- NOTE | 2017-11-05 11:48 | General Progress Note ---
Assessment/Plan Status: unchanged Assessment/Plan # Anemia of chronic disease. Baseline range is 8-10 also is due to myelosuppresions --> Anemia w/u has been reviewed. Will trend CBC as needed. --> Cont to monitor for stability --> Hgb goal above 7 --> Blood tx: 1 unit 11/04 # Thrombocytopenia. Related to underlying cirrhosis. as well as splenomegaly --> If the plt count less than 10k, transfuse immediately. If less than 20k and febrile, transfuse. If less than 50k and bleeding, transfuse. If neurosurgical bleed, transfuse as well. --> Cont abx with ID service. Appreciate recs. --> Cont to monitor PLT count for improvement. --> US of the abdomen has been reviewed --> Current PLT at 54, remains low # Acute Encephalopathy- multifactorial # Sepsis: likely SB Peritonitis # Right pleural effusion due to advanced cirrhosis. --> Recommend thoracentesis to improve his respiratory condition. # Acute GI-Bleeding S/p esophagogastroduodenoscopy. Continue Protonix drip. --> Monitor H and H. transfuse blood as needed. # Liver cirrhosis, advanced, complicated with ascites and jaundice. I GREATLY APPRECIATE THE CONSULTATION. Subjective Date patient seen: Nov 04, 2017 Time patient seen: 08:00 ROS Limited/Unobtainable: Yes Hematologic/Lymphatic: Reports: anemia Allergies: Coded Allergies: No Known Allergies (Unverified , 11/02/17) All Systems: reviewed and negative except above Subjective Hgb at 7.9, blood tx ordered. Objective Last 24 Hour Vital Signs Date Time Temp Pulse Resp B/P (MAP) Pulse Ox O2 Delivery O2 Flow Rate FiO2 11/05/17 08:00 98.1 100 24 121/67 (85) 95 98.1 11/05/17 04:00 101 11/05/17 04:00 98.0 87 25 115/48 (70) 100 98.0 11/05/17 00:00 100 11/05/17 00:00 98.0 79 22 120/71 (87) 100 98.0 11/04/17 20:00 98.1 108 21 124/65 (84) 96 98.1 11/04/17 20:00 102 11/04/17 16:00 Nasal Cannula 4.0 11/04/17 16:00 98.6 105 16 136/60 (85) 100 98.6 11/04/17 16:00 105 11/04/17 15:00 110 20 145/72 (96) 99 11/04/17 14:00 111 21 132/55 (80) 99 11/04/17 13:00 109 18 124/65 (84) 99 11/04/17 12:00 Nasal Cannula 4.0 11/04/17 12:00 106 11/04/17 12:00 98.6 106 18 146/69 (94) 81 98.6 Intake and Output 11/04/17 11/05/17 19:00 07:00 Intake Total 1030.5 ml Balance 1030.5 ml Intake Oral 600 ml IV Total 430.5 ml # Voids 1 # Bowel Movements 2 Laboratory Tests 11/04/17 15:55: Body Fluid Albumin 0.3 11/05/17 05:46: White Blood Count 10.7, Red Blood Count 2.06L, Hemoglobin 7.2L, Hematocrit 20.0L , Mean Corpuscular Volume 97, Mean Corpuscular Hemoglobin 35.1H, Mean Corpuscular Hemoglobin Concent 36.2H, Red Cell Distribution Width 21.1H, Platelet Count 46L, Mean Platelet Volume 8.7, Neutrophils (%) (Auto) , Lymphocytes (%) (Auto) , Monocytes (%) (Auto) , Eosinophils (%) (Auto) , Basophils (%) (Auto) , Differential Total Cells Counted 100, Neutrophils % ( Manual) 83H, Lymphocytes % (Manual) 8L, Monocytes % (Manual) 9, Eosinophils % ( Manual) 0, Basophils % (Manual) 0, Band Neutrophils 0, Nucleated Red Blood Cells 1, Platelet Estimate DecreasedL, Platelet Morphology Normal, Anisocytosis 2+, [place] Cells 1+, Sodium Level 146H, Potassium Level 3.5, Chloride Level 115H, Carbon Dioxide Level 24, Anion Gap 7, Blood Urea Nitrogen 20H, Creatinine 0.6, Estimat Glomerular Filtration Rate > 60, Glucose Level 106, Calcium Level 8.1L, Phosphorus Level 2.7, Magnesium Level 1.8, Total Bilirubin 13.9H, Direct Bilirubin 6.2H, Aspartate Amino Transf (AST/SGOT) 49H, Alanine Aminotransferase (ALT/SGPT) 28, Alkaline Phosphatase 76, Total Protein 4.6L, Albumin 2.2L, Globulin 2.4, Albumin/Globulin Ratio 0.9L Height (Feet): 6 Height (Inches): 2.00 Weight (Pounds): 78 General Appearance: no apparent distress EENT: PERRL/EOMI Neck: normal alignment Cardiovascular: tachycardia Respiratory/Chest: no respiratory distress Abdomen: soft Sahil Agee MD Nov 05, 2017 11:48
[2017-11-05 12:00] VITALS: BP 102/68
--- NOTE | 2017-11-05 12:30 | General Progress Note ---
Assessment/Plan Assessment/Plan S: I am feeling better O: appears fatigued. No Oxygen in place. Soft restraint in Upper Extremity PHYSICAL EXAMINATION: GENERAL: A middle-aged male, cachectic with ascites and jaundice, lying in bed, lethargic, and confused, not in distress. HEENT: Normocephalic and atraumatic. Jaundiced sclera. Jaundiced oral mucosa. No exudate. NECK: Supple. No lymphadenopathy. CARDIOVASCULAR: He is tachycardic. There is a systolic murmur in the mitral valve area. LUNGS: Showed diminished breathing sounds at the right lower lobe with crackles.ABDOMEN: Soft. Distended with ascites. I could not appreciate hepatomegaly.EXTREMITY: With edema. No cyanosis.SKIN: With jaundice and spider angioma. Meds: reviewed and reconciled ASSESSMENT AND RECOMMENDATION: 1. Acute Encephalopathy- multifactorial 2. Sepsis: likely SB Peritonisit, 2. Right pleural effusion due to advanced cirrhosis. Recommend thoracentesis to improve his respiratory condition. 3. Acute GI-Bleeding S/p esophagogastroduodenoscopy. Continue Protonix drip. Monitor H and H. transfuse blood as needed. 4. Liver cirrhosis, advanced, complicated with ascites and jaundice Plan: Post FFP and PRBC trasfusion S/P Colonoscopy today Poor Prognosis Full code Subjective Allergies: Coded Allergies: No Known Allergies (Unverified , 11/02/17) Objective Last 24 Hour Vital Signs Date Time Temp Pulse Resp B/P (MAP) Pulse Ox O2 Delivery O2 Flow Rate FiO2 11/05/17 08:00 98.1 100 24 121/67 (85) 95 98.1 11/05/17 04:00 101 11/05/17 04:00 98.0 87 25 115/48 (70) 100 98.0 11/05/17 00:00 100 11/05/17 00:00 98.0 79 22 120/71 (87) 100 98.0 11/04/17 20:00 98.1 108 21 124/65 (84) 96 98.1 11/04/17 20:00 102 11/04/17 16:00 Nasal Cannula 4.0 11/04/17 16:00 98.6 105 16 136/60 (85) 100 98.6 11/04/17 16:00 105 11/04/17 15:00 110 20 145/72 (96) 99 11/04/17 14:00 111 21 132/55 (80) 99 11/04/17 13:00 109 18 124/65 (84) 99 Intake and Output 11/04/17 11/05/17 19:00 07:00 Intake Total 1030.5 ml Balance 1030.5 ml Intake Oral 600 ml IV Total 430.5 ml # Voids 1 # Bowel Movements 2 Laboratory Tests 11/04/17 15:55: Body Fluid Albumin 0.3 11/05/17 05:46: White Blood Count 10.7, Red Blood Count 2.06L, Hemoglobin 7.2L, Hematocrit 20.0L , Mean Corpuscular Volume 97, Mean Corpuscular Hemoglobin 35.1H, Mean Corpuscular Hemoglobin Concent 36.2H, Red Cell Distribution Width 21.1H, Platelet Count 46L, Mean Platelet Volume 8.7, Neutrophils (%) (Auto) , Lymphocytes (%) (Auto) , Monocytes (%) (Auto) , Eosinophils (%) (Auto) , Basophils (%) (Auto) , Differential Total Cells Counted 100, Neutrophils % ( Manual) 83H, Lymphocytes % (Manual) 8L, Monocytes % (Manual) 9, Eosinophils % ( Manual) 0, Basophils % (Manual) 0, Band Neutrophils 0, Nucleated Red Blood Cells 1, Platelet Estimate DecreasedL, Platelet Morphology Normal, Anisocytosis 2+, [place] Cells 1+, Sodium Level 146H, Potassium Level 3.5, Chloride Level 115H, Carbon Dioxide Level 24, Anion Gap 7, Blood Urea Nitrogen 20H, Creatinine 0.6, Estimat Glomerular Filtration Rate > 60, Glucose Level 106, Calcium Level 8.1L, Phosphorus Level 2.7, Magnesium Level 1.8, Total Bilirubin 13.9H, Direct Bilirubin 6.2H, Aspartate Amino Transf (AST/SGOT) 49H, Alanine Aminotransferase (ALT/SGPT) 28, Alkaline Phosphatase 76, Total Protein 4.6L, Albumin 2.2L, Globulin 2.4, Albumin/Globulin Ratio 0.9L Height (Feet): 6 Height (Inches): 2.00 Weight (Pounds): 78 Fauzia Patel MD Nov 05, 2017 12:30
--- NOTE | 2017-11-05 13:56 | Infectious Diseases Prog Note ---
Assessment/Plan Problems: (1) Leukocytosis, unspecified Assessment & Plan: not due to sepsis, with negative blood culture so far , continue ceftriaxon empirically (2) Pleural effusion on right Assessment & Plan: suspect due to liver cirrhosis , recommend thoracentesis and fluids culture with cytology (3) Cirrhosis of liver with ascites Assessment & Plan: advanced complicated with UGI bleeding, on PPI and steroids per GI , poor prognosis (4) UGI bleed Assessment & Plan: due to liver cirrhosis with no esophageal varices on EGD , continue PPI, transfuse blood as needed, Gi is following (5) Hepatic encephalopathy Assessment & Plan: due to liver cirrhosis , continue lactulose and rifixamin (6) Ascites Assessment & Plan: S/P paracentesis , fluids culture so far is negative (7) Diarrhea Assessment & Plan: will send stool to rule out C diff Subjective Constitutional: Reports: fatigue HEENT: Reports: no symptoms Respiratory: Reports: dry cough Breasts: Reports: no symptoms Cardiovascular: Reports: no symptoms Gastrointestinal/Abdominal: Reports: nausea, diarrhea, bloating Genitourinary: Reports: no symptoms Neurologic: Reports: weakness, confusion Psychiatric: Reports: no symptoms Endocrine: Reports: no symptoms Hematologic: Reports: no symptoms Musculoskeletal: Reports: swelling Allergies: Coded Allergies: No Known Allergies (Unverified , 11/02/17) Objective Vital Signs Last 24 Hour Vital Signs Date Time Temp Pulse Resp B/P (MAP) Pulse Ox O2 Delivery O2 Flow Rate FiO2 11/05/17 12:00 97.5 89 22 102/68 (79) 95 97.5 11/05/17 11:33 90 11/05/17 08:00 98.1 100 24 121/67 (85) 95 98.1 11/05/17 07:54 94 11/05/17 04:00 101 11/05/17 04:00 98.0 87 25 115/48 (70) 100 98.0 11/05/17 00:00 100 11/05/17 00:00 98.0 79 22 120/71 (87) 100 98.0 11/04/17 20:00 98.1 108 21 124/65 (84) 96 98.1 11/04/17 20:00 102 11/04/17 16:00 Nasal Cannula 4.0 11/04/17 16:00 98.6 105 16 136/60 (85) 100 98.6 11/04/17 16:00 105 11/04/17 15:00 110 20 145/72 (96) 99 11/04/17 14:00 111 21 132/55 (80) 99 Height (Feet): 6 Height (Inches): 2.00 Weight (Pounds): 78 General Appearance: WD/WN, no acute distress, cachetic HEENT: normocephalic, atraumatic, mucous membranes moist, PERRL, supple, no JVD Respiratory/Chest: chest wall non-tender, normal breath sounds, no respiratory distress, no accessory muscle use, decreased breath sounds, crackles/rales Cardiovascular: normal peripheral pulses, normal rate, regular rhythm, no gallop/murmur, no JVD Abdomen: normal bowel sounds, soft, non tender, no organomegaly, non distended , no mass, no scars Extremities: no cyanosis, no clubbing Skin: no rash, no lesions, no ulcers Neurologic/Psychiatric: alert, oriented x 3 Lymphatic: no neck adenopathy, no groin adenopathy Musculoskeletal: normal muscle bulk, no effusion Microbiology Date/Time Source Procedure Growth Status 11/02/17 14:00 Blood Blood Culture - Preliminary NO GROWTH AFTER 48 HOURS Resulted 11/02/17 20:51 Nasal Aspirate MRSA Culture - Final NO METHICILLIN RESISTANT STAPH AUREUS... Complete 11/04/17 15:55 Abdominal Fluid Gram Stain - Final Resulted 11/04/17 15:55 Abdominal Fluid Body Fluid Culture Pending Resulted 11/02/17 20:51 Rectum - Final NO CARBAPENEM-RESISTANT ENTEROBACTERI... Complete 11/02/17 20:51 Rectum VRE Culture - Final Enterococcus Faecium - Vre Complete Laboratory Tests Test 11/04/17 15:55 11/05/17 05:46 Body Fluid Albumin 0.3 g/dL (.) White Blood Count 10.7 K/UL (4.8-10.8) Red Blood Count 2.06 M/UL (4.70-6.10) L Hemoglobin 7.2 G/DL (14.2-18.0) L Hematocrit 20.0 % (42.0-52.0) L Mean Corpuscular Volume 97 FL (80-99) Mean Corpuscular Hemoglobin 35.1 PG (27.0-31.0) H Mean Corpuscular Hemoglobin Concent 36.2 G/DL (32.0-36.0) H Red Cell Distribution Width 21.1 % (11.6-14.8) H Platelet Count 46 K/UL (150-450) L Mean Platelet Volume 8.7 FL (6.5-10.1) Neutrophils (%) (Auto) % (45.0-75.0) Lymphocytes (%) (Auto) % (20.0-45.0) Monocytes (%) (Auto) % (1.0-10.0) Eosinophils (%) (Auto) % (0.0-3.0) Basophils (%) (Auto) % (0.0-2.0) Differential Total Cells Counted 100 Neutrophils % (Manual) 83 % (45-75) H Lymphocytes % (Manual) 8 % (20-45) L Monocytes % (Manual) 9 % (1-10) Eosinophils % (Manual) 0 % (0-3) Basophils % (Manual) 0 % (0-2) Band Neutrophils 0 % (0-8) Nucleated Red Blood Cells 1 /100 WBC Platelet Estimate Decreased L Platelet Morphology Normal Anisocytosis 2+ [place]ust[place] Cells 1+ Sodium Level 146 MMOL/L (136-145) H Potassium Level 3.5 MMOL/L (3.5-5.1) Chloride Level 115 MMOL/L (98-107) H Carbon Dioxide Level 24 MMOL/L (21-32) Anion Gap 7 mmol/L (5-15) Blood Urea Nitrogen 20 mg/dL (7-18) H Creatinine 0.6 MG/DL (0.55-1.30) Estimat Glomerular Filtration Rate > 60 mL/min (>60) Glucose Level 106 MG/DL (74-106) Calcium Level 8.1 MG/DL (8.5-10.1) L Phosphorus Level 2.7 MG/DL (2.5-4.9) Magnesium Level 1.8 MG/DL (1.8-2.4) Total Bilirubin 13.9 MG/DL (0.2-1.0) H Direct Bilirubin 6.2 MG/DL (0.0-0.3) H Aspartate Amino Transf (AST/SGOT) 49 U/L (15-37) H Alanine Aminotransferase (ALT/SGPT) 28 U/L (12-78) Alkaline Phosphatase 76 U/L (46-116) Total Protein 4.6 G/DL (6.4-8.2) L Albumin 2.2 G/DL (3.4-5.0) L Globulin 2.4 g/dL Albumin/Globulin Ratio 0.9 (1.0-2.7) L Current Medications Medications (Trade) Dose Ordered Sig/Fish Route PRN Reason Start Time Stop Time Status Last Admin Dose Admin Ceftriaxone Sodium 1 gm/ Sodium Chloride 55 ml @ 110 mls/hr Q24H IVPB 11/04/17 17:00 11/09/17 16:59 11/04/17 18:08 Lactulose (Cephulac) 30 gm TID ORAL 11/04/17 18:00 12/02/17 17:59 11/05/17 09:35 Pantoprazole (Protonix) 40 mg EVERY 12 HOURS IVP 11/04/17 21:00 12/04/17 20:59 11/05/17 09:37 Prednisone (predniSONE) 40 mg DAILY ORAL 11/05/17 09:00 12/02/17 15:44 11/05/17 09:36 Rifaximin (Xifaxan) 550 mg BID ORAL 11/04/17 18:00 11/09/17 17:59 11/05/17 09:37 Marybeth Crouch M.D. Nov 05, 2017 13:56
[2017-11-05 16:00] VITALS: BP 107/70
[2017-11-05] MEDS: cefTRIAXone 1 GM in NS 55 ML IVPB SCH (18:05)
--- NOTE | 2017-11-05 18:14 | General Progress Note ---
Assessment/Plan Assessment/Plan Assessment (1) ETOH abuse ICD Codes: F10.10 - Alcohol abuse, uncomplicated SNOMED: 25253198 (2) Cirrhosis of liver with ascites ICD Codes: K74.60 - Unspecified cirrhosis of liver; R18.8 - Other ascites SNOMED: 76433355, 492020672 (3) UGI bleed ICD Codes: K92.2 - Gastrointestinal hemorrhage, unspecified SNOMED: 41099446 (4) Anemia ICD Codes: D64.9 - Anemia, unspecified SNOMED: 845622033 (5) Hepatic encephalopathy ICD Codes: K72.90 - Hepatic failure, unspecified without coma SNOMED: 60594473 (6) Electrolyte imbalance ICD Codes: E87.8 - Other disorders of electrolyte and fluid balance, not elsewhere classified SNOMED: 621089128 (7) Esophageal varices ICD Codes: I85.00 - Esophageal varices without bleeding SNOMED: 42376978 (8) Jaundice ICD Codes: R17 - Unspecified jaundice SNOMED: 05761370 Status: stable Assessment/Plan s/p EGD SUMMARY OF FINDINGS: 1. No evidence of any active upper GI bleeding. 2. Minimal upper esophagitis. 3. Gastritis. RECOMMENDATIONS: colonoscopy cancelled, no recurrent bleed. Monitor hemoglobin and hematocrit. Transfuse as needed. Correct the coagulopathy. low sodium diet vit K x1 fu labs Subjective Allergies: Coded Allergies: No Known Allergies (Unverified , 11/02/17) Subjective Feels OK no abd pain mariano stool Objective Last 24 Hour Vital Signs Date Time Temp Pulse Resp B/P (MAP) Pulse Ox O2 Delivery O2 Flow Rate FiO2 11/05/17 16:00 98.4 85 18 107/70 (82) 95 98.4 11/05/17 12:00 97.5 89 22 102/68 (79) 95 97.5 11/05/17 11:33 90 11/05/17 08:00 98.1 100 24 121/67 (85) 95 98.1 11/05/17 07:54 94 11/05/17 04:00 101 11/05/17 04:00 98.0 87 25 115/48 (70) 100 98.0 11/05/17 00:00 100 11/05/17 00:00 98.0 79 22 120/71 (87) 100 98.0 9/7/18 20:00 98.1 108 21 124/65 (84) 96 98.1 11/04/17 20:00 102 Intake and Output 11/04/17 11/05/17 19:00 07:00 Intake Total 1030.5 ml Balance 1030.5 ml Intake Oral 600 ml IV Total 430.5 ml # Voids 1 # Bowel Movements 2 Laboratory Tests 11/05/17 05:46: White Blood Count 10.7, Red Blood Count 2.06L, Hemoglobin 7.2L, Hematocrit 20.0L , Mean Corpuscular Volume 97, Mean Corpuscular Hemoglobin 35.1H, Mean Corpuscular Hemoglobin Concent 36.2H, Red Cell Distribution Width 21.1H, Platelet Count 46L, Mean Platelet Volume 8.7, Neutrophils (%) (Auto) , Lymphocytes (%) (Auto) , Monocytes (%) (Auto) , Eosinophils (%) (Auto) , Basophils (%) (Auto) , Differential Total Cells Counted 100, Neutrophils % ( Manual) 83H, Lymphocytes % (Manual) 8L, Monocytes % (Manual) 9, Eosinophils % ( Manual) 0, Basophils % (Manual) 0, Band Neutrophils 0, Nucleated Red Blood Cells 1, Platelet Estimate DecreasedL, Platelet Morphology Normal, Anisocytosis 2+, Agustin Cells 1+, Sodium Level 146H, Potassium Level 3.5, Chloride Level 115H, Carbon Dioxide Level 24, Anion Gap 7, Blood Urea Nitrogen 20H, Creatinine 0.6, Estimat Glomerular Filtration Rate > 60, Glucose Level 106, Calcium Level 8.1L, Phosphorus Level 2.7, Magnesium Level 1.8, Total Bilirubin 13.9H, Direct Bilirubin 6.2H, Aspartate Amino Transf (AST/SGOT) 49H, Alanine Aminotransferase (ALT/SGPT) 28, Alkaline Phosphatase 76, Total Protein 4.6L, Albumin 2.2L, Globulin 2.4, Albumin/Globulin Ratio 0.9L Height (Feet): 6 Height (Inches): 2.00 Weight (Pounds): 78 Objective Thin WM NCAT supple Chest occ wheeze RRR Soft NT, mildly distended no edema Aurora Shepherd MD Nov 05, 2017 18:14
[2017-11-05 20:00] VITALS: BP 129/71
[2017-11-06] VITALS: BP 113/70
[2017-11-06 04:00] VITALS: BP 118/75
--- NOTE | 2017-11-06 06:44 | General Surgery Progress Note ---
General Surgery-Progress Note Subjective Additional Comments no acute events. resting comfortable. hb stable in 7's. no active bleeding Objective Last 24 Hour Vital Signs Date Time Temp Pulse Resp B/P (MAP) Pulse Ox O2 Delivery O2 Flow Rate FiO2 11/06/17 04:00 98.3 86 20 118/75 (89) 94 98.3 11/06/17 03:36 75 11/06/17 00:00 98.5 85 22 113/70 (84) 93 98.5 11/05/17 23:41 79 11/05/17 21:00 Nasal Cannula 4.0 11/05/17 20:03 83 11/05/17 20:00 97.8 78 21 129/71 (90) 96 97.8 11/05/17 19:30 Nasal Cannula 2.0 28 11/05/17 19:30 98 Nasal Cannula 2.0 28 11/05/17 16:00 98.4 85 18 107/70 (82) 95 98.4 11/05/17 15:47 82 11/05/17 12:00 97.5 89 22 102/68 (79) 95 97.5 11/05/17 11:33 90 11/05/17 08:00 98.1 100 24 121/67 (85) 95 98.1 11/05/17 07:54 94 I&O Intake and Output 11/05/17 11/06/17 18:59 06:59 Intake Total 550 ml Output Total 2 ml Balance 548 ml Intake Oral 550 ml Output Urine Total 2 ml # Bowel Movements 2 Cardiovascular: RSR Respiratory: clear Abdomen: soft, flat, non-tender Extremities: no edema, no tenderness, no cyanosis Plan Problems: (1) UGI bleed Assessment & Plan: seems to have stopped. EGD without active bleeding Colonoscopy deferred at this time appreciate GI input trend labs unfortunately given history poor prognosis. (2) Skin abnormalities Assessment & Plan: sacral and posterior thigh wounds partial thickness stage II wounds with epidermal loss and dermal irritation. etiology does not seem to be pressure; possibly from laying in bloody stool for prolonged period of time? no history of injury or trauma -wash site daily and prn -skin protectant daily and prn -okay for non adherent dressings. thank you Orville Alcala Nov 06, 2017 06:44
[2017-11-06 08:00] VITALS: BP 116/71
[2017-11-06] MEDS ORDERED: NS 275ml ONE (09:25)
[2017-11-06] MEDS ORDERED: Tubing Blood Filter IV ONE (09:25)
[2017-11-06] MEDS: Pantoprazole Inj IVP SCH ×2 (09:38→20:33)
[2017-11-06 12:00] VITALS: BP 116/61
--- NOTE | 2017-11-06 12:41 | General Progress Note ---
Assessment/Plan Assessment/Plan Assessment (1) ETOH abuse ICD Codes: F10.10 - Alcohol abuse, uncomplicated SNOMED: 20127478 (2) Cirrhosis of liver with ascites ICD Codes: K74.60 - Unspecified cirrhosis of liver; R18.8 - Other ascites SNOMED: 27520234, 835120631 (3) UGI bleed ICD Codes: K92.2 - Gastrointestinal hemorrhage, unspecified SNOMED: 59065317 (4) Anemia ICD Codes: D64.9 - Anemia, unspecified SNOMED: 943706400 (5) Hepatic encephalopathy ICD Codes: K72.90 - Hepatic failure, unspecified without coma SNOMED: 23374784 (6) Electrolyte imbalance ICD Codes: E87.8 - Other disorders of electrolyte and fluid balance, not elsewhere classified SNOMED: 956973710 (7) Esophageal varices ICD Codes: I85.00 - Esophageal varices without bleeding SNOMED: 83409655 (8) Jaundice ICD Codes: R17 - Unspecified jaundice SNOMED: 96402382 Status: stable Assessment/Plan s/p EGD SUMMARY OF FINDINGS: 1. No evidence of any active upper GI bleeding. 2. Minimal upper esophagitis. 3. Gastritis. RECOMMENDATIONS: colonoscopy cancelled, no recurrent bleed. Monitor hemoglobin and hematocrit. Transfuse as needed. Correct the coagulopathy. 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 Objective Last 24 Hour Vital Signs Date Time Temp Pulse Resp B/P (MAP) Pulse Ox O2 Delivery O2 Flow Rate FiO2 11/06/17 12:00 98.1 95 18 116/61 (79) 93 98.1 11/06/17 08:00 98.4 67 17 116/71 (86) 96 98.4 11/06/17 07:44 98 11/06/17 04:00 98.3 86 20 118/75 (89) 94 98.3 11/06/17 03:36 75 11/06/17 00:00 98.5 85 22 113/70 (84) 93 98.5 11/05/17 23:41 79 11/05/17 21:00 Nasal Cannula 4.0 11/05/17 20:03 83 11/05/17 20:00 97.8 78 21 129/71 (90) 96 97.8 11/05/17 19:30 Nasal Cannula 2.0 28 11/05/17 19:30 98 Nasal Cannula 2.0 28 11/05/17 16:00 98.4 85 18 107/70 (82) 95 98.4 11/05/17 15:47 82 Intake and Output 11/05/17 11/06/17 19:00 07:00 Intake Total 550 ml Output Total 2 ml Balance 548 ml Intake Oral 550 ml Output Urine Total 2 ml # Bowel Movements 2 Height (Feet): 6 Height (Inches): 2.00 Weight (Pounds): 171 Objective Thin WM NCAT supple Chest occ wheeze RRR Soft NT, mildly distended no edema Aurora Shepherd MD Nov 06, 2017 12:41
--- NOTE | 2017-11-06 13:24 | General Progress Note ---
Assessment/Plan Assessment/Plan S: I am feeling better O: appears fatigued. Tolerating PO diet. Soft restraint in Upper Extremity PHYSICAL EXAMINATION: GENERAL: A middle-aged male, cachectic with ascites and jaundice, lying in bed, lethargic, and confused, not in distress. HEENT: Normocephalic and atraumatic. Jaundiced sclera. Jaundiced oral mucosa. No exudate. NECK: Supple. No lymphadenopathy. CARDIOVASCULAR: He is tachycardic. There is a systolic murmur in the mitral valve area. LUNGS: Showed diminished breathing sounds at the right lower lobe with crackles.ABDOMEN: Soft. Distended with ascites. .EXTREMITY: With edema. No cyanosis.SKIN: With jaundice and spider angioma., Neuro: CN intact, more awake and alert now Meds: reviewed and reconciled, including Xifican ASSESSMENT AND RECOMMENDATION: 1. Acute Encephalopathy- multifactorial 2. Sepsis: likely SB Peritonisit, 2. Right pleural effusion due to advanced cirrhosis. Recommend thoracentesis to improve his respiratory condition. 3. Acute GI-Bleeding S/p esophagogastroduodenoscopy. Continue Protonix drip. Monitor H and H. transfuse blood as needed. 4. Liver cirrhosis, advanced, complicated with ascites and jaundice Plan: Post FFP and PRBC trasfusion S/P Colonoscopy today Poor Prognosis Full code Consult Hospice Subjective Allergies: Coded Allergies: No Known Allergies (Unverified , 11/02/17) Objective Last 24 Hour Vital Signs Date Time Temp Pulse Resp B/P (MAP) Pulse Ox O2 Delivery O2 Flow Rate FiO2 11/06/17 12:00 98.1 95 18 116/61 (79) 93 98.1 11/06/17 08:00 98.4 67 17 116/71 (86) 96 98.4 11/06/17 07:44 98 11/06/17 04:00 98.3 86 20 118/75 (89) 94 98.3 11/06/17 03:36 75 11/06/17 00:00 98.5 85 22 113/70 (84) 93 98.5 11/05/17 23:41 79 11/05/17 21:00 Nasal Cannula 4.0 11/05/17 20:03 83 11/05/17 20:00 97.8 78 21 129/71 (90) 96 97.8 11/05/17 19:30 Nasal Cannula 2.0 28 11/05/17 19:30 98 Nasal Cannula 2.0 28 11/05/17 16:00 98.4 85 18 107/70 (82) 95 98.4 11/05/17 15:47 82 Intake and Output 11/05/17 11/06/17 19:00 07:00 Intake Total 550 ml Output Total 2 ml Balance 548 ml Intake Oral 550 ml Output Urine Total 2 ml # Bowel Movements 2 Height (Feet): 6 Height (Inches): 2.00 Weight (Pounds): 171 Fauzia Patel MD Nov 06, 2017 13:24
--- NOTE | 2017-11-06 13:38 | Infectious Diseases Prog Note ---
Assessment/Plan Problems: (1) Leukocytosis, unspecified Assessment & Plan: not due to sepsis, with negative blood culture so far , continue ceftriaxon empirically for SBP prophylaxis (2) Pleural effusion on right Assessment & Plan: suspect due to liver cirrhosis , recommend thoracentesis and fluids culture with cytology (3) Cirrhosis of liver with ascites Assessment & Plan: advanced complicated with UGI bleeding, on PPI and steroids per GI , poor prognosis (4) UGI bleed Assessment & Plan: due to liver cirrhosis with no esophageal varices on EGD , continue PPI, transfuse blood as needed, Gi is following (5) Hepatic encephalopathy Assessment & Plan: due to liver cirrhosis , continue lactulose and rifixamin (6) Ascites Assessment & Plan: S/P paracentesis , fluids culture so far is negative (7) Diarrhea Assessment & Plan: suspect due to lactulose with negative C diff Subjective Constitutional: Reports: no symptoms HEENT: Reports: no symptoms Respiratory: Reports: shortness of breath, dry cough Breasts: Reports: no symptoms Cardiovascular: Reports: no symptoms Gastrointestinal/Abdominal: Reports: bloating Genitourinary: Reports: no symptoms Neurologic: Reports: no symptoms Psychiatric: Reports: no symptoms Skin: Reports: no symptoms Endocrine: Reports: no symptoms Hematologic: Reports: no symptoms Musculoskeletal: Reports: no symptoms Allergies: Coded Allergies: No Known Allergies (Unverified , 11/02/17) Objective Vital Signs Last 24 Hour Vital Signs Date Time Temp Pulse Resp B/P (MAP) Pulse Ox O2 Delivery O2 Flow Rate FiO2 11/06/17 12:00 98.1 95 18 116/61 (79) 93 98.1 11/06/17 08:00 98.4 67 17 116/71 (86) 96 98.4 11/06/17 07:44 98 11/06/17 04:00 98.3 86 20 118/75 (89) 94 98.3 11/06/17 03:36 75 11/06/17 00:00 98.5 85 22 113/70 (84) 93 98.5 11/05/17 23:41 79 11/05/17 21:00 Nasal Cannula 4.0 11/05/17 20:03 83 11/05/17 20:00 97.8 78 21 129/71 (90) 96 97.8 11/05/17 19:30 Nasal Cannula 2.0 28 11/05/17 19:30 98 Nasal Cannula 2.0 28 11/05/17 16:00 98.4 85 18 107/70 (82) 95 98.4 11/05/17 15:47 82 Height (Feet): 6 Height (Inches): 2.00 Weight (Pounds): 171 General Appearance: WD/WN, no acute distress HEENT: normocephalic, atraumatic, anicteric, mucous membranes moist Respiratory/Chest: chest wall non-tender, no respiratory distress, no accessory muscle use, decreased breath sounds, expiratory wheezing Cardiovascular: normal peripheral pulses, normal rate, regular rhythm, no gallop/murmur, no JVD Abdomen: normal bowel sounds, soft, non tender, no organomegaly, no mass, no scars, hypoactive bowel sounds, distended Extremities: no cyanosis, no clubbing Skin: no rash, no lesions, no ulcers Neurologic/Psychiatric: alert, oriented x 3 Lymphatic: no neck adenopathy, no groin adenopathy Microbiology Date/Time Source Procedure Growth Status 11/06/17 12:03 Stool Clostridium difficile Toxin Assay - Final Complete 11/04/17 15:55 Abdominal Fluid Gram Stain - Final Resulted 11/04/17 15:55 Abdominal Fluid Body Fluid Culture - Preliminary NO GROWTH AFTER 24 HOURS Resulted Current Medications Medications (Trade) Dose Ordered Sig/Fish Route PRN Reason Start Time Stop Time Status Last Admin Dose Admin Ceftriaxone Sodium 1 gm/ Sodium Chloride 55 ml @ 110 mls/hr Q24H IVPB 11/04/17 17:00 11/09/17 16:59 11/05/17 18:05 Pantoprazole (Protonix) 40 mg EVERY 12 HOURS IVP 11/04/17 21:00 12/04/17 20:59 11/06/17 09:38 Prednisone (predniSONE) 40 mg DAILY ORAL 11/05/17 09:00 12/02/17 15:44 11/06/17 09:38 Rifaximin (Xifaxan) 550 mg BID ORAL 11/04/17 18:00 11/09/17 17:59 11/06/17 09:38 Marybeth Crouch M.D. Nov 06, 2017 13:38
[2017-11-06 16:00] VITALS: BP 118/75
[2017-11-06] MEDS: cefTRIAXone 1 GM in NS 55 ML IVPB SCH (17:34)
[2017-11-06 20:00] VITALS: BP 119/79
[2017-11-07] VITALS: BP 121/73
[2017-11-07 04:00] VITALS: BP 125/76
[2017-11-07 07:52] VITALS: BP 129/77
[2017-11-07] MEDS: Pantoprazole Inj IVP SCH ×2 (08:25→20:21)
--- NOTE | 2017-11-07 09:41 | General Progress Note ---
Assessment/Plan Assessment/Plan S: I am feeling better O: appears fatigued. Tolerating PO diet. off restraint PHYSICAL EXAMINATION: GENERAL: A middle-aged male, cachectic with ascites and jaundice, lying in bed, lethargic, and confused, not in distress. HEENT: Normocephalic and atraumatic. Jaundiced sclera. Jaundiced oral mucosa. No exudate. NECK: Supple. No lymphadenopathy. CARDIOVASCULAR: He is tachycardic. There is a systolic murmur in the mitral valve area. LUNGS: Bronchial bs, No wheezing .ABDOMEN: Soft. Distended with ascites. .EXTREMITY: With edema. No cyanosis.SKIN: With jaundice and spider angioma., Neuro: CN intact, more awake and alert now Meds: reviewed and reconciled, including Xifican ASSESSMENT AND RECOMMENDATION: 1. Acute Encephalopathy- multifactorial 2. Sepsis: likely SB Peritonisit, 2. Right pleural effusion due to advanced cirrhosis. Recommend thoracentesis to improve his respiratory condition. 3. Acute GI-Bleeding S/p esophagogastroduodenoscopy. Continue Protonix drip. Monitor H and H. transfuse blood as needed. 4. Liver cirrhosis, advanced, complicated with ascites and jaundice Plan: Post FFP and PRBC trasfusion Poor Prognosis Full code Consult Hospice Will recheck HH Subjective Allergies: Coded Allergies: No Known Allergies (Unverified , 11/02/17) Objective Last 24 Hour Vital Signs Date Time Temp Pulse Resp B/P (MAP) Pulse Ox O2 Delivery O2 Flow Rate FiO2 11/07/17 09:00 Room Air 11/07/17 07:52 97.7 89 18 129/77 (94) 95 97.7 11/07/17 04:05 92 11/07/17 04:00 97.0 84 20 125/76 (92) 93 97.0 11/07/17 00:00 97.2 82 21 121/73 (89) 94 97.2 11/06/17 23:33 82 11/06/17 21:00 Nasal Cannula 4.0 11/06/17 20:00 97.5 90 20 119/79 (92) 93 97.5 11/06/17 19:06 93 11/06/17 16:00 98.4 93 20 118/75 (89) 93 98.4 11/06/17 15:08 90 11/06/17 12:00 98.1 95 18 116/61 (79) 93 98.1 11/06/17 11:51 89 Intake and Output 11/06/17 11/07/17 19:00 07:00 Intake Total 840 ml Balance 840 ml Intake Oral 840 ml # Voids 3 # Bowel Movements 3 2 Height (Feet): 6 Height (Inches): 2.00 Weight (Pounds): 168 Fauzia Patel MD Nov 07, 2017 09:41
--- NOTE | 2017-11-07 10:36 | General Progress Note ---
Assessment/Plan Assessment/Plan # Anemia of chronic disease. Baseline range is 7-10 also is due to myelosuppresions --> Anemia w/u has been reviewed. Will trend CBC as needed. --> Cont to monitor for stability --> Hgb goal above 7 --> Blood tx: 1 unit 11/04 # Thrombocytopenia. Related to underlying cirrhosis. as well as splenomegaly --> If the plt count less than 10k, transfuse immediately. If less than 20k and febrile, transfuse. If less than 50k and bleeding, transfuse. If neurosurgical bleed, transfuse as well. --> Cont abx with ID service. Appreciate recs. --> Cont to monitor PLT count for improvement. --> US of the abdomen has been reviewed --> Current PLT remains 40-70k, remains low # Acute Encephalopathy- multifactorial likely liver related --> as per gi management # Sepsis: likely SB Peritonitis --> on abx # Right pleural effusion due to advanced cirrhosis. --> Recommend thoracentesis to improve his respiratory condition. # Acute GI-Bleeding S/p esophagogastroduodenoscopy. Continue Protonix drip. --> Monitor H and H. transfuse blood as needed. # Liver cirrhosis, advanced, complicated with ascites and jaundice. I GREATLY APPRECIATE THE CONSULTATION. Subjective Constitutional: Denies: no symptoms, chills, diaphoresis, fever, malaise, weakness, other HEENT: Denies: no symptoms, eye pain, blurred vision, tearing, double vision, ear pain, ear discharge, nose pain, nose congestion, throat pain, throat swelling, mouth pain, mouth swelling, other Respiratory: Denies: no symptoms, cough, orthopnea, shortness of breath, SOB with excertion, SOB at rest, sputum, stridor, wheezing, other Gastrointestinal/Abdominal: Denies: no symptoms, abdomen distended, abdominal pain, black stools, tarry stools, blood in stool, constipated, diarrhea, difficulty swallowing, nausea, poor appetite, poor fluid intake, rectal bleeding , vomiting, other Neurologic/Psychiatric: Denies: no symptoms, anxiety, depressed, emotional problems, headache, numbness, paresthesia, pre-existing deficit, seizure, tingling, tremors, weakness, other Endocrine: Denies: no symptoms, excessive sweating, flushing, intolerance to cold, intolerance to heat, increased hunger, increased thirst, increased urine, unexplained weight gain, unexplained weight loss, other Hematologic/Lymphatic: Denies: no symptoms, anemia, easy bleeding, easy bruising, other Allergies: Coded Allergies: No Known Allergies (Unverified , 11/02/17) Subjective Hgb remains low, blood tx ordered, no fevers or chills Objective Last 24 Hour Vital Signs Date Time Temp Pulse Resp B/P (MAP) Pulse Ox O2 Delivery O2 Flow Rate FiO2 11/07/17 09:00 Room Air 11/07/17 08:00 95 11/07/17 07:52 97.7 89 18 129/77 (94) 95 97.7 11/07/17 04:05 92 11/07/17 04:00 97.0 84 20 125/76 (92) 93 97.0 11/07/17 00:00 97.2 82 21 121/73 (89) 94 97.2 11/06/17 23:33 82 11/06/17 21:00 Nasal Cannula 4.0 11/06/17 20:00 97.5 90 20 119/79 (92) 93 97.5 11/06/17 19:06 93 11/06/17 16:00 98.4 93 20 118/75 (89) 93 98.4 11/06/17 15:08 90 11/06/17 12:00 98.1 95 18 116/61 (79) 93 98.1 11/06/17 11:51 89 Intake and Output 11/06/17 11/07/17 19:00 07:00 Intake Total 840 ml Balance 840 ml Intake Oral 840 ml # Voids 3 # Bowel Movements 3 2 Height (Feet): 6 Height (Inches): 2.00 Weight (Pounds): 168 General Appearance: no apparent distress EENT: normal ENT inspection Neck: normal alignment Cardiovascular: regular rhythm Respiratory/Chest: lungs clear Abdomen: soft Extremities: non-tender Edema: 1+ Leg (L), 1+ Leg (R) Edema: mild edema Neurologic: alert Skin: warm/dry Sahil Agee MD Nov 07, 2017 10:36
[2017-11-07 11:08] LABS: HEMATOCRIT 24.3 % (42.0-52.0); HEMOGLOBIN 8.6 G/DL (14.2-18.0); MEAN CORPUSCULAR VOLUME 97 FL (80-99); PLATELET COUNT 62 K/UL (150-450); RED BLOOD COUNT 2.51 M/UL (4.70-6.10); RED CELL DISTRIBUTION WIDTH 20.4 % (11.6-14.8); WHITE BLOOD COUNT 10.6 K/UL (4.8-10.8)
[2017-11-07 11:26] LABS: ALANINE AMINOTRANSFERASE 27 U/L (12-78); ALBUMIN 2.3 G/DL (3.4-5.0); ALBUMIN/GLOBULIN RATIO 0.8 (1.0-2.7); ALKALINE PHOSPHATASE 102 U/L (46-116); ANION GAP 7 mmol/L (5-15); ASPARTATE AMINO TRANSFERASE 45 U/L (15-37); BILIRUBIN,TOTAL 9.4 MG/DL (0.2-1.0); BLOOD UREA NITROGEN 21 mg/dL (7-18); CALCIUM 8.3 MG/DL (8.5-10.1); CARBON DIOXIDE 22 MMOL/L (21-32); CHLORIDE 105 MMOL/L (98-107); CREATININE 0.6 MG/DL (0.55-1.30); POTASSIUM 3.5 MMOL/L (3.5-5.1); SODIUM 134 MMOL/L (136-145)
[2017-11-07 11:28] LABS: BILIRUBIN,DIRECT 3.9 MG/DL (0.0-0.3)
--- NOTE | 2017-11-07 11:53 | General Surgery Progress Note ---
General Surgery-Progress Note Subjective Symptoms: improved Additional Comments no acute events. labs improved today. t bili trending down Objective Last 24 Hour Vital Signs Date Time Temp Pulse Resp B/P (MAP) Pulse Ox O2 Delivery O2 Flow Rate FiO2 11/07/17 09:00 Room Air 11/07/17 08:00 95 11/07/17 07:52 97.7 89 18 129/77 (94) 95 97.7 11/07/17 04:05 92 11/07/17 04:00 97.0 84 20 125/76 (92) 93 97.0 11/07/17 00:00 97.2 82 21 121/73 (89) 94 97.2 11/06/17 23:33 82 11/06/17 21:00 Nasal Cannula 4.0 11/06/17 20:00 97.5 90 20 119/79 (92) 93 97.5 11/06/17 19:06 93 11/06/17 16:00 98.4 93 20 118/75 (89) 93 98.4 11/06/17 15:08 90 11/06/17 12:00 98.1 95 18 116/61 (79) 93 98.1 I&O Intake and Output 11/06/17 11/07/17 19:00 07:00 Intake Total 840 ml Balance 840 ml Intake Oral 840 ml # Voids 3 # Bowel Movements 3 2 Wound: other Drains: none Cardiovascular: RSR Respiratory: clear Abdomen: soft, flat, non-tender, present bowel sounds Extremities: no cyanosis Laboratory Tests Test 11/07/17 10:15 White Blood Count 10.6 K/UL (4.8-10.8) Red Blood Count 2.51 M/UL (4.70-6.10) L Hemoglobin 8.6 G/DL (14.2-18.0) L Hematocrit 24.3 % (42.0-52.0) L Mean Corpuscular Volume 97 FL (80-99) Mean Corpuscular Hemoglobin 34.3 PG (27.0-31.0) H Mean Corpuscular Hemoglobin Concent 35.3 G/DL (32.0-36.0) Red Cell Distribution Width 20.4 % (11.6-14.8) H Platelet Count 62 K/UL (150-450) L Mean Platelet Volume 9.0 FL (6.5-10.1) Neutrophils (%) (Auto) % (45.0-75.0) Lymphocytes (%) (Auto) % (20.0-45.0) Monocytes (%) (Auto) % (1.0-10.0) Eosinophils (%) (Auto) % (0.0-3.0) Basophils (%) (Auto) % (0.0-2.0) Differential Total Cells Counted 100 Neutrophils % (Manual) 81 % (45-75) H Lymphocytes % (Manual) 6 % (20-45) L Monocytes % (Manual) 11 % (1-10) H Eosinophils % (Manual) 2 % (0-3) Basophils % (Manual) 0 % (0-2) Band Neutrophils 0 % (0-8) Nucleated Red Blood Cells 1 /100 WBC Platelet Estimate Decreased L Platelet Morphology Normal Hypochromasia Anisocytosis 2+ Agustin Cells 1+ Sodium Level 134 MMOL/L (136-145) L Potassium Level 3.5 MMOL/L (3.5-5.1) Chloride Level 105 MMOL/L (98-107) Carbon Dioxide Level 22 MMOL/L (21-32) Anion Gap 7 mmol/L (5-15) Blood Urea Nitrogen 21 mg/dL (7-18) H Creatinine 0.6 MG/DL (0.55-1.30) Estimat Glomerular Filtration Rate > 60 mL/min (>60) Glucose Level 160 MG/DL (74-106) H Calcium Level 8.3 MG/DL (8.5-10.1) L Total Bilirubin 9.4 MG/DL (0.2-1.0) H Direct Bilirubin 3.9 MG/DL (0.0-0.3) H Aspartate Amino Transf (AST/SGOT) 45 U/L (15-37) H Alanine Aminotransferase (ALT/SGPT) 27 U/L (12-78) Alkaline Phosphatase 102 U/L (46-116) Total Protein 5.3 G/DL (6.4-8.2) L Albumin 2.3 G/DL (3.4-5.0) L Globulin 3.0 g/dL Albumin/Globulin Ratio 0.8 (1.0-2.7) L Plan Problems: (1) UGI bleed Assessment & Plan: seems to have stopped. EGD without active bleeding Colonoscopy deferred at this time appreciate GI input trend labs - improving unfortunately given history poor prognosis. (2) Skin abnormalities Assessment & Plan: sacral and posterior thigh wounds partial thickness stage II wounds with epidermal loss and dermal irritation. etiology does not seem to be pressure; possibly from laying in bloody stool for prolonged period of time? no history of injury or trauma -wash site daily and prn -skin protectant daily and prn -okay for non adherent dressings. thank you Orville Alcala Nov 07, 2017 11:53
[2017-11-07 12:00] VITALS: BP 131/77
--- NOTE | 2017-11-07 12:14 | GI Progress Note ---
Assessment/Plan Problems: (1) ETOH abuse ICD Codes: F10.10 - Alcohol abuse, uncomplicated SNOMED: 21492373 (2) Cirrhosis of liver with ascites ICD Codes: K74.60 - Unspecified cirrhosis of liver; R18.8 - Other ascites SNOMED: 65750767, 312373778 (3) UGI bleed ICD Codes: K92.2 - Gastrointestinal hemorrhage, unspecified SNOMED: 95127400 (4) Anemia ICD Codes: D64.9 - Anemia, unspecified SNOMED: 507781274 (5) Hepatic encephalopathy ICD Codes: K72.90 - Hepatic failure, unspecified without coma SNOMED: 13742096 (6) Electrolyte imbalance ICD Codes: E87.8 - Other disorders of electrolyte and fluid balance, not elsewhere classified SNOMED: 252518807 (7) Esophageal varices ICD Codes: I85.00 - Esophageal varices without bleeding SNOMED: 05861034 (8) Jaundice ICD Codes: R17 - Unspecified jaundice SNOMED: 71396718 Status: progressing Status Narrative Discussed with Dr. Fritz. Assessment/Plan s/p EGD SUMMARY OF FINDINGS: 1. No evidence of any active upper GI bleeding. 2. Minimal upper esophagitis. 3. Gastritis. s/p paracentesis removing 4.3L RECOMMENDATIONS: colonoscopy cancelled, no recurrent bleed. Monitor hemoglobin and hematocrit. Transfuse as needed. Correct the coagulopathy. low sodium diet vit K x1 OB stool pending fu labs, trend LFTs dc planning, hospice per primary The patient was seen and examined at bedside and all new and available data was reviewed in the patients chart. I agree with the above findings, impression and plan. (Patient seen earlier today. Signature stamp does not reflect patient encounter time.). - Morgan Fritz MD Subjective Gastrointestinal/Abdominal: Reports: no symptoms Objective Last 24 Hour Vital Signs Date Time Temp Pulse Resp B/P (MAP) Pulse Ox O2 Delivery O2 Flow Rate FiO2 11/07/17 09:00 Room Air 11/07/17 08:00 95 11/07/17 07:52 97.7 89 18 129/77 (94) 95 97.7 11/07/17 04:05 92 11/07/17 04:00 97.0 84 20 125/76 (92) 93 97.0 11/07/17 00:00 97.2 82 21 121/73 (89) 94 97.2 11/06/17 23:33 82 11/06/17 21:00 Nasal Cannula 4.0 11/06/17 20:00 97.5 90 20 119/79 (92) 93 97.5 11/06/17 19:06 93 11/06/17 16:00 98.4 93 20 118/75 (89) 93 98.4 11/06/17 15:08 90 Intake and Output 11/06/17 11/07/17 19:00 07:00 Intake Total 840 ml Balance 840 ml Intake Oral 840 ml # Voids 3 # Bowel Movements 3 2 Laboratory Tests Test 11/07/17 10:15 White Blood Count 10.6 K/UL (4.8-10.8) Red Blood Count 2.51 M/UL (4.70-6.10) L Hemoglobin 8.6 G/DL (14.2-18.0) L Hematocrit 24.3 % (42.0-52.0) L Mean Corpuscular Volume 97 FL (80-99) Mean Corpuscular Hemoglobin 34.3 PG (27.0-31.0) H Mean Corpuscular Hemoglobin Concent 35.3 G/DL (32.0-36.0) Red Cell Distribution Width 20.4 % (11.6-14.8) H Platelet Count 62 K/UL (150-450) L Mean Platelet Volume 9.0 FL (6.5-10.1) Neutrophils (%) (Auto) % (45.0-75.0) Lymphocytes (%) (Auto) % (20.0-45.0) Monocytes (%) (Auto) % (1.0-10.0) Eosinophils (%) (Auto) % (0.0-3.0) Basophils (%) (Auto) % (0.0-2.0) Differential Total Cells Counted 100 Neutrophils % (Manual) 81 % (45-75) H Lymphocytes % (Manual) 6 % (20-45) L Monocytes % (Manual) 11 % (1-10) H Eosinophils % (Manual) 2 % (0-3) Basophils % (Manual) 0 % (0-2) Band Neutrophils 0 % (0-8) Nucleated Red Blood Cells 1 /100 WBC Platelet Estimate Decreased L Platelet Morphology Normal Hypochromasia Anisocytosis 2+ Agustin Cells 1+ Sodium Level 134 MMOL/L (136-145) L Potassium Level 3.5 MMOL/L (3.5-5.1) Chloride Level 105 MMOL/L (98-107) Carbon Dioxide Level 22 MMOL/L (21-32) Anion Gap 7 mmol/L (5-15) Blood Urea Nitrogen 21 mg/dL (7-18) H Creatinine 0.6 MG/DL (0.55-1.30) Estimat Glomerular Filtration Rate > 60 mL/min (>60) Glucose Level 160 MG/DL (74-106) H Calcium Level 8.3 MG/DL (8.5-10.1) L Total Bilirubin 9.4 MG/DL (0.2-1.0) H Direct Bilirubin 3.9 MG/DL (0.0-0.3) H Aspartate Amino Transf (AST/SGOT) 45 U/L (15-37) H Alanine Aminotransferase (ALT/SGPT) 27 U/L (12-78) Alkaline Phosphatase 102 U/L (46-116) Total Protein 5.3 G/DL (6.4-8.2) L Albumin 2.3 G/DL (3.4-5.0) L Globulin 3.0 g/dL Albumin/Globulin Ratio 0.8 (1.0-2.7) L Height (Feet): 6 Height (Inches): 2.00 Weight (Pounds): 168 General Appearance: WD/WN, no apparent distress, alert, thin Cardiovascular: normal rate Respiratory/Chest: normal breath sounds, no respiratory distress Abdominal Exam: normal bowel sounds, non tender, soft Extremities: non-tender Pao Bolaños [employer] Nov 07, 2017 12:14
[2017-11-07 12:39] LABS: INR 2.4 (0.9-1.1)
--- NOTE | 2017-11-07 15:14 | Infectious Diseases Prog Note ---
Assessment/Plan Problems: (1) Leukocytosis, unspecified Assessment & Plan: not due to sepsis, with negative blood culture so far , continue ceftriaxon empirically for SBP prophylaxis for 5 days total (2) Pleural effusion on right Assessment & Plan: suspect due to liver cirrhosis , recommend thoracentesis and fluids culture with cytology (3) Cirrhosis of liver with ascites Assessment & Plan: advanced complicated with UGI bleeding, on PPI and steroids per GI , poor prognosis (4) UGI bleed Assessment & Plan: due to liver cirrhosis with no esophageal varices on EGD , continue PPI, transfuse blood as needed, Gi is following (5) Hepatic encephalopathy Assessment & Plan: due to liver cirrhosis , continue lactulose and rifixamin (6) Ascites Assessment & Plan: S/P paracentesis , fluids culture so far is negative (7) Diarrhea Assessment & Plan: suspect due to lactulose with negative C diff Subjective Constitutional: Reports: no symptoms HEENT: Reports: no symptoms Respiratory: Reports: shortness of breath, dry cough Breasts: Reports: no symptoms Cardiovascular: Reports: no symptoms Gastrointestinal/Abdominal: Reports: bloating Genitourinary: Reports: no symptoms Neurologic: Reports: no symptoms Psychiatric: Reports: no symptoms Skin: Reports: no symptoms Endocrine: Reports: no symptoms Hematologic: Reports: no symptoms Musculoskeletal: Reports: no symptoms Allergies: Coded Allergies: No Known Allergies (Unverified , 11/02/17) Objective Vital Signs Last 24 Hour Vital Signs Date Time Temp Pulse Resp B/P (MAP) Pulse Ox O2 Delivery O2 Flow Rate FiO2 11/07/17 12:00 96 11/07/17 12:00 98.4 95 20 131/77 (95) 95 98.4 11/07/17 09:00 Room Air 11/07/17 08:00 95 11/07/17 07:52 97.7 89 18 129/77 (94) 95 97.7 11/07/17 04:05 92 11/07/17 04:00 97.0 84 20 125/76 (92) 93 97.0 11/07/17 00:00 97.2 82 21 121/73 (89) 94 97.2 11/06/17 23:33 82 11/06/17 21:00 Nasal Cannula 4.0 11/06/17 20:00 97.5 90 20 119/79 (92) 93 97.5 11/06/17 19:06 93 11/06/17 16:00 98.4 93 20 118/75 (89) 93 98.4 Height (Feet): 6 Height (Inches): 2.00 Weight (Pounds): 168 General Appearance: WD/WN, no acute distress, cachetic HEENT: normocephalic, atraumatic, anicteric, mucous membranes moist, PERRL Respiratory/Chest: chest wall non-tender, lungs clear, normal breath sounds, no respiratory distress, no accessory muscle use Cardiovascular: normal peripheral pulses, normal rate, regular rhythm, no gallop/murmur, no JVD Abdomen: soft, non tender, no organomegaly, no mass, no scars, hypoactive bowel sounds, distended Extremities: no cyanosis, no clubbing Skin: no rash, no lesions, no ulcers Neurologic/Psychiatric: alert, oriented x 3 Lymphatic: no neck adenopathy, no groin adenopathy Musculoskeletal: normal muscle bulk, no effusion Microbiology Date/Time Source Procedure Growth Status 11/06/17 12:03 Stool Clostridium difficile Toxin Assay - Final Complete 11/04/17 15:55 Abdominal Fluid Gram Stain - Final Resulted 11/04/17 15:55 Abdominal Fluid Body Fluid Culture - Preliminary Resulted Laboratory Tests Test 11/07/17 10:15 11/07/17 12:00 White Blood Count 10.6 K/UL (4.8-10.8) Red Blood Count 2.51 M/UL (4.70-6.10) L Hemoglobin 8.6 G/DL (14.2-18.0) L Hematocrit 24.3 % (42.0-52.0) L Mean Corpuscular Volume 97 FL (80-99) Mean Corpuscular Hemoglobin 34.3 PG (27.0-31.0) H Mean Corpuscular Hemoglobin Concent 35.3 G/DL (32.0-36.0) Red Cell Distribution Width 20.4 % (11.6-14.8) H Platelet Count 62 K/UL (150-450) L Mean Platelet Volume 9.0 FL (6.5-10.1) Neutrophils (%) (Auto) % (45.0-75.0) Lymphocytes (%) (Auto) % (20.0-45.0) Monocytes (%) (Auto) % (1.0-10.0) Eosinophils (%) (Auto) % (0.0-3.0) Basophils (%) (Auto) % (0.0-2.0) Differential Total Cells Counted 100 Neutrophils % (Manual) 81 % (45-75) H Lymphocytes % (Manual) 6 % (20-45) L Monocytes % (Manual) 11 % (1-10) H Eosinophils % (Manual) 2 % (0-3) Basophils % (Manual) 0 % (0-2) Band Neutrophils 0 % (0-8) Nucleated Red Blood Cells 1 /100 WBC Platelet Estimate Decreased L Platelet Morphology Normal Hypochromasia Anisocytosis 2+ Agustin Cells 1+ Sodium Level 134 MMOL/L (136-145) L Potassium Level 3.5 MMOL/L (3.5-5.1) Chloride Level 105 MMOL/L (98-107) Carbon Dioxide Level 22 MMOL/L (21-32) Anion Gap 7 mmol/L (5-15) Blood Urea Nitrogen 21 mg/dL (7-18) H Creatinine 0.6 MG/DL (0.55-1.30) Estimat Glomerular Filtration Rate > 60 mL/min (>60) Glucose Level 160 MG/DL (74-106) H Calcium Level 8.3 MG/DL (8.5-10.1) L Total Bilirubin 9.4 MG/DL (0.2-1.0) H Direct Bilirubin 3.9 MG/DL (0.0-0.3) H Aspartate Amino Transf (AST/SGOT) 45 U/L (15-37) H Alanine Aminotransferase (ALT/SGPT) 27 U/L (12-78) Alkaline Phosphatase 102 U/L (46-116) Total Protein 5.3 G/DL (6.4-8.2) L Albumin 2.3 G/DL (3.4-5.0) L Globulin 3.0 g/dL Albumin/Globulin Ratio 0.8 (1.0-2.7) L Prothrombin Time 23.9 SEC (9.30-11.50) H Prothromb Time International Ratio 2.4 (0.9-1.1) H Current Medications Medications (Trade) Dose Ordered Sig/Fish Route PRN Reason Start Time Stop Time Status Last Admin Dose Admin Ceftriaxone Sodium 1 gm/ Sodium Chloride 55 ml @ 110 mls/hr Q24H IVPB 9/7/18 17:00 11/09/17 16:59 11/06/17 17:34 Pantoprazole (Protonix) 40 mg EVERY 12 HOURS IVP 11/04/17 21:00 12/04/17 20:59 11/07/17 08:25 Prednisone (predniSONE) 40 mg DAILY ORAL 11/05/17 09:00 12/02/17 15:44 11/07/17 08:26 Rifaximin (Xifaxan) 550 mg BID ORAL 11/04/17 18:00 11/09/17 17:59 11/07/17 08:26 Marybeth Crouch M.D. Nov 07, 2017 15:14
[2017-11-07 16:00] VITALS: BP 125/74
[2017-11-07] MEDS: cefTRIAXone 1 GM in NS 55 ML IVPB SCH (16:34)
[2017-11-07 20:00] VITALS: BP 132/78
[2017-11-08] VITALS: BP 130/70
[2017-11-08 04:00] VITALS: BP 128/74
[2017-11-08 07:04] LABS: HEMATOCRIT 26.4 % (42.0-52.0); HEMOGLOBIN 9.1 G/DL (14.2-18.0); MEAN CORPUSCULAR VOLUME 100 FL (80-99); PLATELET COUNT 71 K/UL (150-450); RED BLOOD COUNT 2.63 M/UL (4.70-6.10); RED CELL DISTRIBUTION WIDTH 22.3 % (11.6-14.8); WHITE BLOOD COUNT 9.1 K/UL (4.8-10.8)
[2017-11-08 07:07] LABS: ALANINE AMINOTRANSFERASE 34 U/L (12-78); ALBUMIN 2.4 G/DL (3.4-5.0); ALKALINE PHOSPHATASE 109 U/L (46-116); ANION GAP 5 mmol/L (5-15); ASPARTATE AMINO TRANSFERASE 45 U/L (15-37); BLOOD UREA NITROGEN 17 mg/dL (7-18); CALCIUM 8.6 MG/DL (8.5-10.1); CARBON DIOXIDE 25 MMOL/L (21-32); CHLORIDE 105 MMOL/L (98-107); CREATININE 0.5 MG/DL (0.55-1.30); POTASSIUM 3.9 MMOL/L (3.5-5.1); SODIUM 135 MMOL/L (136-145)
[2017-11-08 07:17] LABS: BILIRUBIN,DIRECT 3.7 MG/DL (0.0-0.3)
[2017-11-08 08:00] VITALS: BP 145/79
[2017-11-08] MEDS: Pantoprazole Inj IVP SCH ×2 (08:39→20:18)
--- NOTE | 2017-11-08 11:14 | General Progress Note ---
Assessment/Plan Assessment/Plan S: My geri hurts O: appears fatigued. Tolerating PO diet. off restraint. Denies nausea PHYSICAL EXAMINATION: GENERAL: A middle-aged male, cachectic with ascites and jaundice, lying in bed, lethargic, and confused, not in distress. HEENT: Normocephalic and atraumatic. Jaundiced sclera. Jaundiced oral mucosa. No exudate. NECK: Supple. No lymphadenopathy. CARDIOVASCULAR: He is tachycardic. There is a systolic murmur in the mitral valve area. LUNGS: Bronchial bs, No wheezing .ABDOMEN: Soft. Distended with ascites. .EXTREMITY: With edema. No cyanosis.SKIN: With jaundice and spider angioma., Neuro: CN intact, more awake and alert now Meds: reviewed and reconciled, including Xifican ASSESSMENT AND RECOMMENDATION: 1. Acute Encephalopathy- multifactorial 2. Sepsis: likely SB Peritonisit, 2. Right pleural effusion due to advanced cirrhosis. Recommend thoracentesis to improve his respiratory condition. 3. Acute GI-Bleeding S/p esophagogastroduodenoscopy. Continue Protonix drip. Monitor H and H. transfuse blood as needed. 4. Liver cirrhosis, advanced, complicated with ascites and jaundice Plan: Post FFP and PRBC trasfusion Poor Prognosis Full code Consult Hospice Will recheck HH Ok to start low dose Tylenol Subjective Allergies: Coded Allergies: No Known Allergies (Unverified , 11/02/17) Objective Last 24 Hour Vital Signs Date Time Temp Pulse Resp B/P (MAP) Pulse Ox O2 Delivery O2 Flow Rate FiO2 11/08/17 08:00 98.2 91 20 145/79 (101) 95 98.2 11/08/17 04:00 97.3 80 20 128/74 (92) 92 97.3 11/08/17 00:00 97.3 79 20 130/70 (90) 94 97.3 11/07/17 21:11 Room Air 11/07/17 20:00 97.8 88 20 132/78 (96) 94 97.8 11/07/17 19:59 99 Nasal Cannula 2.0 28 11/07/17 19:59 Nasal Cannula 2.0 28 11/07/17 16:00 97.5 91 24 125/74 (91) 94 97.5 11/07/17 12:00 96 11/07/17 12:00 98.4 95 20 131/77 (95) 95 98.4 Laboratory Tests 11/07/17 12:00: Prothrombin Time 23.9H, Prothromb Time International Ratio 2.4H 11/08/17 06:00: White Blood Count 9.1, Red Blood Count 2.63L, Hemoglobin 9.1L, Hematocrit 26.4L , Mean Corpuscular Volume 100H, Mean Corpuscular Hemoglobin 34.5H, Mean Corpuscular Hemoglobin Concent 34.5, Red Cell Distribution Width 22.3H, Platelet Count 71L, Mean Platelet Volume 8.8, Neutrophils (%) (Auto) , Lymphocytes (%) (Auto) , Monocytes (%) (Auto) , Eosinophils (%) (Auto) , Basophils (%) (Auto) , Differential Total Cells Counted 100, Neutrophils % ( Manual) 82H, Lymphocytes % (Manual) 2L, Monocytes % (Manual) 11H, Eosinophils % (Manual) 0, Basophils % (Manual) 0, Band Neutrophils 5, Platelet Estimate DecreasedL, Platelet Morphology Normal, Polychromasia 2+, Anisocytosis 2+, Macrocytosis 1+, Agustin Cells 2+, Sodium Level 135L, Potassium Level 3.9, Chloride Level 105, Carbon Dioxide Level 25, Anion Gap 5, Blood Urea Nitrogen 17 , Creatinine 0.5L, Estimat Glomerular Filtration Rate > 60, Glucose Level 115H, Calcium Level 8.6, Total Bilirubin 10.0H, Direct Bilirubin 3.7H, Aspartate Amino Transf (AST/SGOT) 45H, Alanine Aminotransferase (ALT/SGPT) 34, Alkaline Phosphatase 109, Total Protein 5.5L, Albumin 2.4L, Globulin 3.1 Height (Feet): 6 Height (Inches): 2.00 Weight (Pounds): 177 Fauzia Patel MD Nov 08, 2017 11:14
[2017-11-08 12:00] VITALS: BP 136/83
--- NOTE | 2017-11-08 12:16 | General Surgery Progress Note ---
General Surgery-Progress Note Subjective Additional Comments doing well. comfortable. labs stable. wound okay Objective Last 24 Hour Vital Signs Date Time Temp Pulse Resp B/P (MAP) Pulse Ox O2 Delivery O2 Flow Rate FiO2 11/08/17 08:00 98.2 91 20 145/79 (101) 95 98.2 11/08/17 04:00 97.3 80 20 128/74 (92) 92 97.3 11/08/17 00:00 97.3 79 20 130/70 (90) 94 97.3 11/07/17 21:11 Room Air 11/07/17 20:00 97.8 88 20 132/78 (96) 94 97.8 11/07/17 19:59 99 Nasal Cannula 2.0 28 11/07/17 19:59 Nasal Cannula 2.0 28 11/07/17 16:00 97.5 91 24 125/74 (91) 94 97.5 Dressing: saturated Wound: clean, intact Drains: none Cardiovascular: RSR Respiratory: clear Abdomen: soft, distended, present bowel sounds Extremities: no cyanosis Laboratory Tests Test 11/08/17 06:00 White Blood Count 9.1 K/UL (4.8-10.8) Red Blood Count 2.63 M/UL (4.70-6.10) L Hemoglobin 9.1 G/DL (14.2-18.0) L Hematocrit 26.4 % (42.0-52.0) L Mean Corpuscular Volume 100 FL (80-99) H Mean Corpuscular Hemoglobin 34.5 PG (27.0-31.0) H Mean Corpuscular Hemoglobin Concent 34.5 G/DL (32.0-36.0) Red Cell Distribution Width 22.3 % (11.6-14.8) H Platelet Count 71 K/UL (150-450) L Mean Platelet Volume 8.8 FL (6.5-10.1) Neutrophils (%) (Auto) % (45.0-75.0) Lymphocytes (%) (Auto) % (20.0-45.0) Monocytes (%) (Auto) % (1.0-10.0) Eosinophils (%) (Auto) % (0.0-3.0) Basophils (%) (Auto) % (0.0-2.0) Differential Total Cells Counted 100 Neutrophils % (Manual) 82 % (45-75) H Lymphocytes % (Manual) 2 % (20-45) L Monocytes % (Manual) 11 % (1-10) H Eosinophils % (Manual) 0 % (0-3) Basophils % (Manual) 0 % (0-2) Band Neutrophils 5 % (0-8) Platelet Estimate Decreased L Platelet Morphology Normal Polychromasia 2+ Anisocytosis 2+ Macrocytosis 1+ Arthur Cells 2+ Sodium Level 135 MMOL/L (136-145) L Potassium Level 3.9 MMOL/L (3.5-5.1) Chloride Level 105 MMOL/L (98-107) Carbon Dioxide Level 25 MMOL/L (21-32) Anion Gap 5 mmol/L (5-15) Blood Urea Nitrogen 17 mg/dL (7-18) Creatinine 0.5 MG/DL (0.55-1.30) L Estimat Glomerular Filtration Rate > 60 mL/min (>60) Glucose Level 115 MG/DL (74-106) H Calcium Level 8.6 MG/DL (8.5-10.1) Total Bilirubin 10.0 MG/DL (0.2-1.0) H Direct Bilirubin 3.7 MG/DL (0.0-0.3) H Aspartate Amino Transf (AST/SGOT) 45 U/L (15-37) H Alanine Aminotransferase (ALT/SGPT) 34 U/L (12-78) Alkaline Phosphatase 109 U/L (46-116) Total Protein 5.5 G/DL (6.4-8.2) L Albumin 2.4 G/DL (3.4-5.0) L Globulin 3.1 g/dL Plan Problems: (1) UGI bleed Assessment & Plan: seems to have stopped. EGD without active bleeding Colonoscopy deferred at this time appreciate GI input trend labs - improving unfortunately given history poor prognosis. (2) Skin abnormalities Assessment & Plan: sacral and posterior thigh wounds partial thickness stage II wounds with epidermal loss and dermal irritation. etiology does not seem to be pressure; possibly from laying in bloody stool for prolonged period of time? no history of injury or trauma -wash site daily and prn -skin protectant daily and prn -okay for non adherent dressings. -will take time to heal given comorbidities thank you Orville Alcala Nov 08, 2017 12:16
--- NOTE | 2017-11-08 12:26 | Pre-Procedure Note/Attestation ---
Pre-Procedure Note/Attestation Complete Prior to Procedure Planned Procedure: not applicable Procedure Narrative: egd Indications for Procedure Pre-Operative Diagnosis: GIB Attestation I attest that I discussed the nature of the procedure; its benefits; risks and complications; and alternatives (and the risks and benefits of such alternatives ), prior to the procedure, with the patient (or the patient's legal guest experience representative). I attest that, if there was a reasonable possibility of needing a blood transfusion, the patient (or the patient's legal guest experience representative) was given the [facility] standardized written summary, pursuant to the Geraldo Johanna Blood Safety Act ([place] Health and Safety Code # 1645, as amended). I attest that I re-evaluated the patient just prior to the surgery and that there has been no change in the patient's H&P, except as documented below: Morgan Fritz MD Nov 08, 2017 12:26
--- NOTE | 2017-11-08 15:13 | General Progress Note ---
Assessment/Plan Assessment/Plan # Anemia of chronic disease. Baseline range is 7-10 also is due to myelosuppression, anemia w/u has been reviewed. Will trend CBC as needed. --> Cont to monitor for stability --> Hgb goal above 7 --> Blood tx: 1 unit 11/04 # Thrombocytopenia. Related to underlying cirrhosis. as well as splenomegaly, if the plt count less than 10k, transfuse immediately. If less than 20k and febrile, transfuse. If less than 50k and bleeding, transfuse. If neurosurgical bleed, transfuse as well. --> Cont abx with ID service. Appreciate recs. --> Cont to monitor PLT count for improvement. --> US of the abdomen has been reviewed --> Current PLT remains 40-70k, remains low # Acute encephalopathy- multifactorial likely liver related --> as per gi management # Sepsis: likely SB Peritonitis --> on abx # Right pleural effusion due to advanced cirrhosis. --> Recommend thoracentesis to improve his respiratory condition. # Acute GI-Bleeding S/p esophagogastroduodenoscopy. Continue Protonix drip. --> Monitor H and H. transfuse blood as needed. # Liver cirrhosis, advanced, complicated with ascites and jaundice. I GREATLY APPRECIATE THE CONSULTATION. Subjective Constitutional: Denies: no symptoms, chills, diaphoresis, fever, malaise, weakness, other HEENT: Denies: no symptoms, eye pain, blurred vision, tearing, double vision, ear pain, ear discharge, nose pain, nose congestion, throat pain, throat swelling, mouth pain, mouth swelling, other Cardiovascular: Denies: no symptoms, chest pain, edema, irregular heart rate, lightheadedness, palpitations, syncope, other Respiratory: Denies: no symptoms, cough, orthopnea, shortness of breath, SOB with excertion, SOB at rest, sputum, stridor, wheezing, other Gastrointestinal/Abdominal: Denies: no symptoms, abdomen distended, abdominal pain, black stools, tarry stools, blood in stool, constipated, diarrhea, difficulty swallowing, nausea, poor appetite, poor fluid intake, rectal bleeding , vomiting, other Neurologic/Psychiatric: Denies: no symptoms, anxiety, depressed, emotional problems, headache, numbness, paresthesia, pre-existing deficit, seizure, tingling, tremors, weakness, other Endocrine: Denies: no symptoms, excessive sweating, flushing, intolerance to cold, intolerance to heat, increased hunger, increased thirst, increased urine, unexplained weight gain, unexplained weight loss, other Hematologic/Lymphatic: Denies: no symptoms, anemia, easy bleeding, easy bruising, other Allergies: Coded Allergies: No Known Allergies (Unverified , 11/02/17) Subjective Hgb is stable today, inr remains 2.8, vit K prn Objective Last 24 Hour Vital Signs Date Time Temp Pulse Resp B/P (MAP) Pulse Ox O2 Delivery O2 Flow Rate FiO2 11/08/17 12:00 98.2 94 20 136/83 (100) 95 98.2 11/08/17 08:00 98.2 91 20 145/79 (101) 95 98.2 11/08/17 04:00 97.3 80 20 128/74 (92) 92 97.3 11/08/17 00:00 97.3 79 20 130/70 (90) 94 97.3 11/07/17 21:11 Room Air 11/07/17 20:00 97.8 88 20 132/78 (96) 94 97.8 11/07/17 19:59 99 Nasal Cannula 2.0 28 11/07/17 19:59 Nasal Cannula 2.0 28 11/07/17 16:00 97.5 91 24 125/74 (91) 94 97.5 Laboratory Tests 11/08/17 06:00: White Blood Count 9.1, Red Blood Count 2.63L, Hemoglobin 9.1L, Hematocrit 26.4L , Mean Corpuscular Volume 100H, Mean Corpuscular Hemoglobin 34.5H, Mean Corpuscular Hemoglobin Concent 34.5, Red Cell Distribution Width 22.3H, Platelet Count 71L, Mean Platelet Volume 8.8, Neutrophils (%) (Auto) , Lymphocytes (%) (Auto) , Monocytes (%) (Auto) , Eosinophils (%) (Auto) , Basophils (%) (Auto) , Differential Total Cells Counted 100, Neutrophils % ( Manual) 82H, Lymphocytes % (Manual) 2L, Monocytes % (Manual) 11H, Eosinophils % (Manual) 0, Basophils % (Manual) 0, Band Neutrophils 5, Platelet Estimate DecreasedL, Platelet Morphology Normal, Polychromasia 2+, Anisocytosis 2+, Macrocytosis 1+, Agustin Cells 2+, Sodium Level 135L, Potassium Level 3.9, Chloride Level 105, Carbon Dioxide Level 25, Anion Gap 5, Blood Urea Nitrogen 17 , Creatinine 0.5L, Estimat Glomerular Filtration Rate > 60, Glucose Level 115H, Calcium Level 8.6, Total Bilirubin 10.0H, Direct Bilirubin 3.7H, Aspartate Amino Transf (AST/SGOT) 45H, Alanine Aminotransferase (ALT/SGPT) 34, Alkaline Phosphatase 109, Total Protein 5.5L, Albumin 2.4L, Globulin 3.1 Height (Feet): 6 Height (Inches): 2.00 Weight (Pounds): 177 General Appearance: alert EENT: normal ENT inspection Neck: normal alignment Cardiovascular: normal rate Respiratory/Chest: lungs clear Abdomen: soft Extremities: non-tender Edema: no edema noted Leg (L), no edema noted Leg (R) Edema: mild edema Neurologic: alert Skin: warm/dry Sahil Agee MD Nov 08, 2017 15:13
--- NOTE | 2017-11-08 15:37 | Infectious Diseases Prog Note ---
Assessment/Plan Problems: (1) Leukocytosis, unspecified Assessment & Plan: not due to sepsis, with negative blood culture so far , continue ceftriaxon empirically for SBP prophylaxis for 5 days total (2) Pleural effusion on right Assessment & Plan: suspect due to liver cirrhosis , recommend thoracentesis and fluids culture with cytology (3) Cirrhosis of liver with ascites Assessment & Plan: advanced complicated with UGI bleeding, on PPI and steroids per GI , poor prognosis (4) UGI bleed Assessment & Plan: due to liver cirrhosis with no esophageal varices on EGD , continue PPI, transfuse blood as needed, Gi is following (5) Hepatic encephalopathy Assessment & Plan: due to liver cirrhosis , continue lactulose and rifixamin (6) Ascites Assessment & Plan: S/P paracentesis , fluids culture so far is negative (7) Diarrhea Assessment & Plan: suspect due to lactulose with negative C diff Subjective Constitutional: Reports: no symptoms HEENT: Reports: no symptoms Respiratory: Reports: no symptoms Breasts: Reports: no symptoms Cardiovascular: Reports: no symptoms Gastrointestinal/Abdominal: Reports: no symptoms Genitourinary: Reports: no symptoms Neurologic: Reports: no symptoms Psychiatric: Reports: no symptoms Skin: Reports: no symptoms Endocrine: Reports: no symptoms Hematologic: Reports: no symptoms Musculoskeletal: Reports: no symptoms Allergies: Coded Allergies: No Known Allergies (Unverified , 11/02/17) Objective Vital Signs Last 24 Hour Vital Signs Date Time Temp Pulse Resp B/P (MAP) Pulse Ox O2 Delivery O2 Flow Rate FiO2 11/08/17 12:00 98.2 94 20 136/83 (100) 95 98.2 11/08/17 08:00 98.2 91 20 145/79 (101) 95 98.2 11/08/17 04:00 97.3 80 20 128/74 (92) 92 97.3 11/08/17 00:00 97.3 79 20 130/70 (90) 94 97.3 11/07/17 21:11 Room Air 11/07/17 20:00 97.8 88 20 132/78 (96) 94 97.8 11/07/17 19:59 99 Nasal Cannula 2.0 28 11/07/17 19:59 Nasal Cannula 2.0 28 11/07/17 16:00 97.5 91 24 125/74 (91) 94 97.5 Height (Feet): 6 Height (Inches): 2.00 Weight (Pounds): 177 General Appearance: WD/WN, no acute distress HEENT: normocephalic, atraumatic, anicteric, mucous membranes moist, PERRL Respiratory/Chest: chest wall non-tender, no respiratory distress, no accessory muscle use, decreased breath sounds, expiratory wheezing Cardiovascular: normal peripheral pulses, normal rate, regular rhythm, no gallop/murmur, no JVD Abdomen: normal bowel sounds, soft, non tender, no mass, no scars, hypoactive bowel sounds, distended Extremities: no cyanosis, no clubbing Skin: no rash, no lesions, no ulcers Neurologic/Psychiatric: alert, oriented x 3, responsive Lymphatic: no neck adenopathy, no groin adenopathy Musculoskeletal: normal muscle bulk, no effusion Microbiology Date/Time Source Procedure Growth Status 11/06/17 12:03 Stool Clostridium difficile Toxin Assay - Final Complete Laboratory Tests Test 11/08/17 06:00 White Blood Count 9.1 K/UL (4.8-10.8) Red Blood Count 2.63 M/UL (4.70-6.10) L Hemoglobin 9.1 G/DL (14.2-18.0) L Hematocrit 26.4 % (42.0-52.0) L Mean Corpuscular Volume 100 FL (80-99) H Mean Corpuscular Hemoglobin 34.5 PG (27.0-31.0) H Mean Corpuscular Hemoglobin Concent 34.5 G/DL (32.0-36.0) Red Cell Distribution Width 22.3 % (11.6-14.8) H Platelet Count 71 K/UL (150-450) L Mean Platelet Volume 8.8 FL (6.5-10.1) Neutrophils (%) (Auto) % (45.0-75.0) Lymphocytes (%) (Auto) % (20.0-45.0) Monocytes (%) (Auto) % (1.0-10.0) Eosinophils (%) (Auto) % (0.0-3.0) Basophils (%) (Auto) % (0.0-2.0) Differential Total Cells Counted 100 Neutrophils % (Manual) 82 % (45-75) H Lymphocytes % (Manual) 2 % (20-45) L Monocytes % (Manual) 11 % (1-10) H Eosinophils % (Manual) 0 % (0-3) Basophils % (Manual) 0 % (0-2) Band Neutrophils 5 % (0-8) Platelet Estimate Decreased L Platelet Morphology Normal Polychromasia 2+ Anisocytosis 2+ Macrocytosis 1+ [place] Cells 2+ Sodium Level 135 MMOL/L (136-145) L Potassium Level 3.9 MMOL/L (3.5-5.1) Chloride Level 105 MMOL/L (98-107) Carbon Dioxide Level 25 MMOL/L (21-32) Anion Gap 5 mmol/L (5-15) Blood Urea Nitrogen 17 mg/dL (7-18) Creatinine 0.5 MG/DL (0.55-1.30) L Estimat Glomerular Filtration Rate > 60 mL/min (>60) Glucose Level 115 MG/DL (74-106) H Calcium Level 8.6 MG/DL (8.5-10.1) Total Bilirubin 10.0 MG/DL (0.2-1.0) H Direct Bilirubin 3.7 MG/DL (0.0-0.3) H Aspartate Amino Transf (AST/SGOT) 45 U/L (15-37) H Alanine Aminotransferase (ALT/SGPT) 34 U/L (12-78) Alkaline Phosphatase 109 U/L (46-116) Total Protein 5.5 G/DL (6.4-8.2) L Albumin 2.4 G/DL (3.4-5.0) L Globulin 3.1 g/dL Current Medications Medications (Trade) Dose Ordered Sig/Fish Route PRN Reason Start Time Stop Time Status Last Admin Dose Admin Acetaminophen (Tylenol) 325 mg Q6H PRN ORAL Mild Pain/Temp > 100.5 11/08/17 10:00 12/08/17 09:59 11/08/17 09:52 Ceftriaxone Sodium 1 gm/ Sodium Chloride 55 ml @ 110 mls/hr Q24H IVPB 11/08/17 17:00 11/09/17 16:59 Pantoprazole (Protonix) 40 mg EVERY 12 HOURS IVP 11/07/17 21:00 12/04/17 20:59 11/08/17 08:39 Prednisone (predniSONE) 40 mg DAILY ORAL 11/08/17 09:00 10/5/18 15:44 11/08/17 08:39 Rifaximin (Xifaxan) 550 mg BID ORAL 11/08/17 09:00 12/08/17 08:59 11/08/17 08:40 Marybeth Crouch M.D. Nov 08, 2017 15:37
--- NOTE | 2017-11-08 15:43 | GI Progress Note ---
Assessment/Plan Problems: (1) ETOH abuse ICD Codes: F10.10 - Alcohol abuse, uncomplicated SNOMED: 87156401 (2) Cirrhosis of liver with ascites ICD Codes: K74.60 - Unspecified cirrhosis of liver; R18.8 - Other ascites SNOMED: 22739823, 767994685 (3) UGI bleed ICD Codes: K92.2 - Gastrointestinal hemorrhage, unspecified SNOMED: 45993741 (4) Anemia ICD Codes: D64.9 - Anemia, unspecified SNOMED: 897661184 (5) Hepatic encephalopathy ICD Codes: K72.90 - Hepatic failure, unspecified without coma SNOMED: 83193073 (6) Electrolyte imbalance ICD Codes: E87.8 - Other disorders of electrolyte and fluid balance, not elsewhere classified SNOMED: 733186704 (7) Esophageal varices ICD Codes: I85.00 - Esophageal varices without bleeding SNOMED: 91901815 (8) Jaundice ICD Codes: R17 - Unspecified jaundice SNOMED: 50307110 Status: stable Status Narrative Discussed with Dr. Fritz. Assessment/Plan s/p EGD SUMMARY OF FINDINGS: 1. No evidence of any active upper GI bleeding. 2. Minimal upper esophagitis. 3. Gastritis. s/p paracentesis removing 4.3L RECOMMENDATIONS: colonoscopy cancelled, no recurrent bleed. Monitor hemoglobin and hematocrit. Transfuse as needed. Correct the coagulopathy. low sodium diet OB stool pending fu labs, trend LFTs dc planning, hospice per primary The patient was seen and examined at bedside and all new and available data was reviewed in the patients chart. I agree with the above findings, impression and plan. (Patient seen earlier today. Signature stamp does not reflect patient encounter time.). - Morgan Fritz MD Subjective Gastrointestinal/Abdominal: Reports: no symptoms Objective Last 24 Hour Vital Signs Date Time Temp Pulse Resp B/P (MAP) Pulse Ox O2 Delivery O2 Flow Rate FiO2 11/08/17 12:00 98.2 94 20 136/83 (100) 95 98.2 11/08/17 08:00 98.2 91 20 145/79 (101) 95 98.2 11/08/17 04:00 97.3 80 20 128/74 (92) 92 97.3 11/08/17 00:00 97.3 79 20 130/70 (90) 94 97.3 11/07/17 21:11 Room Air 11/07/17 20:00 97.8 88 20 132/78 (96) 94 97.8 11/07/17 19:59 99 Nasal Cannula 2.0 28 11/07/17 19:59 Nasal Cannula 2.0 28 11/07/17 16:00 97.5 91 24 125/74 (91) 94 97.5 Laboratory Tests Test 11/08/17 06:00 White Blood Count 9.1 K/UL (4.8-10.8) Red Blood Count 2.63 M/UL (4.70-6.10) L Hemoglobin 9.1 G/DL (14.2-18.0) L Hematocrit 26.4 % (42.0-52.0) L Mean Corpuscular Volume 100 FL (80-99) H Mean Corpuscular Hemoglobin 34.5 PG (27.0-31.0) H Mean Corpuscular Hemoglobin Concent 34.5 G/DL (32.0-36.0) Red Cell Distribution Width 22.3 % (11.6-14.8) H Platelet Count 71 K/UL (150-450) L Mean Platelet Volume 8.8 FL (6.5-10.1) Neutrophils (%) (Auto) % (45.0-75.0) Lymphocytes (%) (Auto) % (20.0-45.0) Monocytes (%) (Auto) % (1.0-10.0) Eosinophils (%) (Auto) % (0.0-3.0) Basophils (%) (Auto) % (0.0-2.0) Differential Total Cells Counted 100 Neutrophils % (Manual) 82 % (45-75) H Lymphocytes % (Manual) 2 % (20-45) L Monocytes % (Manual) 11 % (1-10) H Eosinophils % (Manual) 0 % (0-3) Basophils % (Manual) 0 % (0-2) Band Neutrophils 5 % (0-8) Platelet Estimate Decreased L Platelet Morphology Normal Polychromasia 2+ Anisocytosis 2+ Macrocytosis 1+ Agustin Cells 2+ Sodium Level 135 MMOL/L (136-145) L Potassium Level 3.9 MMOL/L (3.5-5.1) Chloride Level 105 MMOL/L (98-107) Carbon Dioxide Level 25 MMOL/L (21-32) Anion Gap 5 mmol/L (5-15) Blood Urea Nitrogen 17 mg/dL (7-18) Creatinine 0.5 MG/DL (0.55-1.30) L Estimat Glomerular Filtration Rate > 60 mL/min (>60) Glucose Level 115 MG/DL (74-106) H Calcium Level 8.6 MG/DL (8.5-10.1) Total Bilirubin 10.0 MG/DL (0.2-1.0) H Direct Bilirubin 3.7 MG/DL (0.0-0.3) H Aspartate Amino Transf (AST/SGOT) 45 U/L (15-37) H Alanine Aminotransferase (ALT/SGPT) 34 U/L (12-78) Alkaline Phosphatase 109 U/L (46-116) Total Protein 5.5 G/DL (6.4-8.2) L Albumin 2.4 G/DL (3.4-5.0) L Globulin 3.1 g/dL Height (Feet): 6 Height (Inches): 2.00 Weight (Pounds): 177 General Appearance: WD/WN, no apparent distress, alert, thin Cardiovascular: normal rate Respiratory/Chest: normal breath sounds, no respiratory distress Abdominal Exam: normal bowel sounds, non tender, soft, ascites Extremities: normal range of motion, non-tender Pao Bolaños NP Nov 08, 2017 15:43
[2017-11-08 16:00] VITALS: BP 140/85
[2017-11-08] MEDS ORDERED: cefTRIAXone 1 GM in NS 55 ML IVPB SCH (17:00)
[2017-11-08 19:26] VITALS: BP 129/77
[2017-11-09 00:14] VITALS: BP 133/78
[2017-11-09 04:20] VITALS: BP 128/78
[2017-11-09 07:10] LABS: ALANINE AMINOTRANSFERASE 38 U/L (12-78); ALBUMIN 2.2 G/DL (3.4-5.0); ALBUMIN/GLOBULIN RATIO 0.7 (1.0-2.7); ALKALINE PHOSPHATASE 122 U/L (46-116); ANION GAP 6 mmol/L (5-15); ASPARTATE AMINO TRANSFERASE 43 U/L (15-37); BILIRUBIN,DIRECT 3.5 MG/DL (0.0-0.3); BILIRUBIN,TOTAL 9.1 MG/DL (0.2-1.0); BLOOD UREA NITROGEN 19 mg/dL (7-18); CALCIUM 8.4 MG/DL (8.5-10.1); CARBON DIOXIDE 24 MMOL/L (21-32); CHLORIDE 107 MMOL/L (98-107); CREATININE 0.7 MG/DL (0.55-1.30); POTASSIUM 4.2 MMOL/L (3.5-5.1); SODIUM 137 MMOL/L (136-145)
[2017-11-09 07:36] LABS: APTT 1:1 NORMAL PLASMA 26.6 sec (22.9-30.2); APTT 1:1NP MIX 60M INCUBATION 30.5 sec (22.9-30.2); APTT 1:1NP MIX CONTROL 28.6 sec (22.9-30.2)
[2017-11-09 08:00] VITALS: BP 140/74
[2017-11-09] MEDS: Pantoprazole Inj IVP SCH ×2 (08:05→20:22)
--- NOTE | 2017-11-09 10:13 | General Surgery Progress Note ---
General Surgery-Progress Note Subjective Additional Comments no acute events. comfortable. wants [facility]. no n/v/f/c. tolerating diet. labs reviewed. Objective Last 24 Hour Vital Signs Date Time Temp Pulse Resp B/P (MAP) Pulse Ox O2 Delivery O2 Flow Rate FiO2 11/09/17 08:00 97.3 94 20 140/74 (96) 90 97.3 11/09/17 04:20 96.3 85 15 128/78 (95) 93 96.3 11/09/17 00:14 96.6 81 17 133/78 (96) 92 96.6 11/08/17 21:00 98 Nasal Cannula 2.0 28 11/08/17 21:00 Nasal Cannula 2.0 28 11/08/17 20:38 Room Air 11/08/17 19:26 98.2 91 18 129/77 (94) 94 98.2 11/08/17 16:00 98.6 97 20 140/85 (103) 94 98.6 11/08/17 12:00 98.2 94 20 136/83 (100) 95 98.2 I&O Intake and Output 11/08/17 11/09/17 19:00 07:00 Intake Total 775 ml Output Total 1200 ml Balance -425 ml Intake Oral 720 ml IV Total 55 ml Output Urine Total 1200 ml # Bowel Movements 1 Dressing: saturated Wound: clean Drains: none Cardiovascular: RSR Respiratory: clear Abdomen: soft, flat, non-tender, present bowel sounds Extremities: no cyanosis Laboratory Tests Test 11/09/17 02:30 11/09/17 05:45 Stool Occult Blood Pending Sodium Level 137 MMOL/L (136-145) Potassium Level 4.2 MMOL/L (3.5-5.1) Chloride Level 107 MMOL/L (98-107) Carbon Dioxide Level 24 MMOL/L (21-32) Anion Gap 6 mmol/L (5-15) Blood Urea Nitrogen 19 mg/dL (7-18) H Creatinine 0.7 MG/DL (0.55-1.30) Estimat Glomerular Filtration Rate > 60 mL/min (>60) Glucose Level 114 MG/DL (74-106) H Calcium Level 8.4 MG/DL (8.5-10.1) L Total Bilirubin 9.1 MG/DL (0.2-1.0) H Direct Bilirubin 3.5 MG/DL (0.0-0.3) H Aspartate Amino Transf (AST/SGOT) 43 U/L (15-37) H Alanine Aminotransferase (ALT/SGPT) 38 U/L (12-78) Alkaline Phosphatase 122 U/L (46-116) H Total Protein 5.2 G/DL (6.4-8.2) L Albumin 2.2 G/DL (3.4-5.0) L Globulin 3.0 g/dL Albumin/Globulin Ratio 0.7 (1.0-2.7) L Plan Problems: (1) UGI bleed Assessment & Plan: seems to have stopped. EGD without active bleeding Colonoscopy deferred at this time appreciate GI input trend labs - improving unfortunately given history poor prognosis. (2) Skin abnormalities Assessment & Plan: sacral and posterior thigh wounds partial thickness stage II wounds with epidermal loss and dermal irritation. etiology does not seem to be pressure; possibly from laying in bloody stool for prolonged period of time? no history of injury or trauma -wash site daily and prn -skin protectant daily and prn -okay for non adherent dressings. -will take time to heal given comorbidities thank you Orville Alcala Nov 09, 2017 10:13
--- NOTE | 2017-11-09 10:35 | General Progress Note ---
Assessment/Plan Assessment/Plan S: My geri hurts O: appears fatigued. Tolerating PO diet. off restraint. Denies nausea. Requesting to stay longer in the hospital setting PHYSICAL EXAMINATION: GENERAL: A middle-aged male, cachectic with ascites and jaundice, lying in bed, lethargic, and confused, not in distress. HEENT: Normocephalic and atraumatic. Jaundiced sclera. Jaundiced oral mucosa. No exudate. NECK: Supple. No lymphadenopathy. CARDIOVASCULAR: He is tachycardic. There is a systolic murmur in the mitral valve area. LUNGS: Bronchial bs, No wheezing .ABDOMEN: Soft. Distended with ascites. .EXTREMITY: With edema. No cyanosis.SKIN: With jaundice and spider angioma., Neuro: CN intact, more awake and alert now Meds: reviewed and reconciled, including Xifican ASSESSMENT AND RECOMMENDATION: 1. Acute Encephalopathy- multifactorial 2. Sepsis: likely SB Peritonisit, 2. Right pleural effusion due to advanced cirrhosis. Recommend thoracentesis to improve his respiratory condition. 3. Acute GI-Bleeding S/p esophagogastroduodenoscopy. Continue Protonix drip. Monitor H and H. transfuse blood as needed. 4. Liver cirrhosis, advanced, complicated with ascites and jaundice 5. Full code 6. Refusal of hospice care Plan: Post [facility] and [facility] trasfusion Poor Prognosis Full code Consult Hospice Will recheck HH Ok to start low dose Tylenol PRN DCP in progress Subjective Allergies: Coded Allergies: No Known Allergies (Unverified , 11/02/17) Objective Last 24 Hour Vital Signs Date Time Temp Pulse Resp B/P (MAP) Pulse Ox O2 Delivery O2 Flow Rate FiO2 11/09/17 08:00 97.3 94 20 140/74 (96) 90 97.3 11/09/17 04:20 96.3 85 15 128/78 (95) 93 96.3 11/09/17 00:14 96.6 81 17 133/78 (96) 92 96.6 11/08/17 21:00 98 Nasal Cannula 2.0 28 11/08/17 21:00 Nasal Cannula 2.0 28 11/08/17 20:38 Room Air 11/08/17 19:26 98.2 91 18 129/77 (94) 94 98.2 11/08/17 16:00 98.6 97 20 140/85 (103) 94 98.6 11/08/17 12:00 98.2 94 20 136/83 (100) 95 98.2 Intake and Output 11/08/17 11/09/17 19:00 07:00 Intake Total 775 ml Output Total 1200 ml Balance -425 ml Intake Oral 720 ml IV Total 55 ml Output Urine Total 1200 ml # Bowel Movements 1 Laboratory Tests 11/09/17 02:30: Stool Occult Blood [Pending] 11/09/17 05:45: Sodium Level 137, Potassium Level 4.2, Chloride Level 107, Carbon Dioxide Level 24, Anion Gap 6, Blood Urea Nitrogen 19H, Creatinine 0.7, Estimat Glomerular Filtration Rate > 60, Glucose Level 114H, Calcium Level 8.4L, Total Bilirubin 9.1H, Direct Bilirubin 3.5H, Aspartate Amino Transf (AST/SGOT) 43H, Alanine Aminotransferase (ALT/SGPT) 38, Alkaline Phosphatase 122H, Total Protein 5.2L, Albumin 2.2L, Globulin 3.0, Albumin/Globulin Ratio 0.7L Height (Feet): 6 Height (Inches): 2.00 Weight (Pounds): 174 Fauzia Patel MD Nov 09, 2017 10:35
--- NOTE | 2017-11-09 11:52 | GI Progress Note ---
Assessment/Plan Problems: (1) ETOH abuse ICD Codes: F10.10 - Alcohol abuse, uncomplicated SNOMED: 06458337 (2) Cirrhosis of liver with ascites ICD Codes: K74.60 - Unspecified cirrhosis of liver; R18.8 - Other ascites SNOMED: 20142185, 266849226 (3) UGI bleed ICD Codes: K92.2 - Gastrointestinal hemorrhage, unspecified SNOMED: 39140698 (4) Anemia ICD Codes: D64.9 - Anemia, unspecified SNOMED: 949627020 (5) Hepatic encephalopathy ICD Codes: K72.90 - Hepatic failure, unspecified without coma SNOMED: 25964968 (6) Electrolyte imbalance ICD Codes: E87.8 - Other disorders of electrolyte and fluid balance, not elsewhere classified SNOMED: 459030021 (7) Esophageal varices ICD Codes: I85.00 - Esophageal varices without bleeding SNOMED: 99248166 (8) Jaundice ICD Codes: R17 - Unspecified jaundice SNOMED: 74375589 Status: stable Status Narrative Discussed with Dr. Fritz. Assessment/Plan s/p EGD SUMMARY OF FINDINGS: 1. No evidence of any active upper GI bleeding. 2. Minimal upper esophagitis. 3. Gastritis. s/p paracentesis removing 4.3L OB stool positive x2 stable H&H RECOMMENDATIONS: colonoscopy cancelled, no recurrent bleed. Monitor hemoglobin and hematocrit. Transfuse as needed. Correct the coagulopathy. low sodium diet fu labs, trend LFTs, ammonia dc planning, hospice per primary The patient was seen and examined at bedside and all new and available data was reviewed in the patients chart. I agree with the above findings, impression and plan. (Patient seen earlier today. Signature stamp does not reflect patient encounter time.). - Morgan Fritz MD Subjective Gastrointestinal/Abdominal: Reports: no symptoms Objective Last 24 Hour Vital Signs Date Time Temp Pulse Resp B/P (MAP) Pulse Ox O2 Delivery O2 Flow Rate FiO2 11/09/17 08:00 97.3 94 20 140/74 (96) 90 97.3 11/09/17 04:20 96.3 85 15 128/78 (95) 93 96.3 11/09/17 00:14 96.6 81 17 133/78 (96) 92 96.6 11/08/17 21:00 98 Nasal Cannula 2.0 28 11/08/17 21:00 Nasal Cannula 2.0 28 11/08/17 20:38 Room Air 11/08/17 19:26 98.2 91 18 129/77 (94) 94 98.2 11/08/17 16:00 98.6 97 20 140/85 (103) 94 98.6 11/08/17 12:00 98.2 94 20 136/83 (100) 95 98.2 Intake and Output 11/08/17 11/09/17 19:00 07:00 Intake Total 775 ml Output Total 1200 ml Balance -425 ml Intake Oral 720 ml IV Total 55 ml Output Urine Total 1200 ml # Bowel Movements 1 Laboratory Tests Test 11/09/17 02:30 11/09/17 05:45 Stool Occult Blood Positive (NEGATIVE) Sodium Level 137 MMOL/L (136-145) Potassium Level 4.2 MMOL/L (3.5-5.1) Chloride Level 107 MMOL/L (98-107) Carbon Dioxide Level 24 MMOL/L (21-32) Anion Gap 6 mmol/L (5-15) Blood Urea Nitrogen 19 mg/dL (7-18) H Creatinine 0.7 MG/DL (0.55-1.30) Estimat Glomerular Filtration Rate > 60 mL/min (>60) Glucose Level 114 MG/DL (74-106) H Calcium Level 8.4 MG/DL (8.5-10.1) L Total Bilirubin 9.1 MG/DL (0.2-1.0) H Direct Bilirubin 3.5 MG/DL (0.0-0.3) H Aspartate Amino Transf (AST/SGOT) 43 U/L (15-37) H Alanine Aminotransferase (ALT/SGPT) 38 U/L (12-78) Alkaline Phosphatase 122 U/L (46-116) H Total Protein 5.2 G/DL (6.4-8.2) L Albumin 2.2 G/DL (3.4-5.0) L Globulin 3.0 g/dL Albumin/Globulin Ratio 0.7 (1.0-2.7) L Height (Feet): 6 Height (Inches): 2.00 Weight (Pounds): 174 General Appearance: WD/WN, no apparent distress, alert Cardiovascular: normal rate Respiratory/Chest: normal breath sounds, no respiratory distress Abdominal Exam: normal bowel sounds, non tender, soft, ascites Extremities: normal range of motion, non-tender Pao Bolaños NP Nov 09, 2017 11:52
[2017-11-09 12:00] VITALS: BP 149/73
--- NOTE | 2017-11-09 15:19 | Infectious Diseases Prog Note ---
Assessment/Plan Problems: (1) Leukocytosis, unspecified Assessment & Plan: not due to sepsis, with negative blood culture so far , continue ceftriaxon empirically for SBP prophylaxis for 5 days total (2) Pleural effusion on right Assessment & Plan: suspect due to liver cirrhosis , recommend thoracentesis and fluids culture with cytology (3) Cirrhosis of liver with ascites Assessment & Plan: advanced complicated with UGI bleeding, on PPI and steroids per GI , poor prognosis (4) UGI bleed Assessment & Plan: due to liver cirrhosis with no esophageal varices on EGD , continue PPI, transfuse blood as needed, Gi is following (5) Hepatic encephalopathy Assessment & Plan: due to liver cirrhosis , continue lactulose and rifixamin (6) Ascites Assessment & Plan: S/P paracentesis , fluids culture so far is negative (7) Diarrhea Assessment & Plan: suspect due to lactulose with negative C diff Subjective Constitutional: Reports: no symptoms HEENT: Reports: no symptoms Respiratory: Reports: shortness of breath, dry cough Breasts: Reports: no symptoms Cardiovascular: Reports: no symptoms Gastrointestinal/Abdominal: Reports: no symptoms Genitourinary: Reports: no symptoms Neurologic: Reports: no symptoms Psychiatric: Reports: no symptoms Skin: Reports: no symptoms Endocrine: Reports: no symptoms Hematologic: Reports: no symptoms Musculoskeletal: Reports: no symptoms Allergies: Coded Allergies: No Known Allergies (Unverified , 11/02/17) Objective Vital Signs Last 24 Hour Vital Signs Date Time Temp Pulse Resp B/P (MAP) Pulse Ox O2 Delivery O2 Flow Rate FiO2 11/09/17 12:00 97.7 93 20 149/73 (98) 93 97.7 11/09/17 08:00 97.3 94 20 140/74 (96) 90 97.3 11/09/17 04:20 96.3 85 15 128/78 (95) 93 96.3 11/09/17 00:14 96.6 81 17 133/78 (96) 92 96.6 11/08/17 21:00 98 Nasal Cannula 2.0 28 11/08/17 21:00 Nasal Cannula 2.0 28 11/08/17 20:38 Room Air 11/08/17 19:26 98.2 91 18 129/77 (94) 94 98.2 11/08/17 16:00 98.6 97 20 140/85 (103) 94 98.6 Height (Feet): 6 Height (Inches): 2.00 Weight (Pounds): 174 General Appearance: WD/WN, no acute distress HEENT: normocephalic, atraumatic, anicteric, mucous membranes moist, EOMI, pharynx normal, supple, no JVD Respiratory/Chest: chest wall non-tender, lungs clear, normal breath sounds, no respiratory distress, no accessory muscle use Cardiovascular: normal peripheral pulses, normal rate, regular rhythm, no gallop/murmur, no JVD Abdomen: normal bowel sounds, soft, non tender, no organomegaly, non distended , no mass, no scars Extremities: no cyanosis, no clubbing Skin: no rash, no lesions, no ulcers Neurologic/Psychiatric: alert, oriented x 3 Lymphatic: no neck adenopathy, no groin adenopathy Musculoskeletal: normal muscle bulk, no effusion Laboratory Tests Test 11/09/17 02:30 11/09/17 05:45 Stool Occult Blood Positive (NEGATIVE) Sodium Level 137 MMOL/L (136-145) Potassium Level 4.2 MMOL/L (3.5-5.1) Chloride Level 107 MMOL/L (98-107) Carbon Dioxide Level 24 MMOL/L (21-32) Anion Gap 6 mmol/L (5-15) Blood Urea Nitrogen 19 mg/dL (7-18) H Creatinine 0.7 MG/DL (0.55-1.30) Estimat Glomerular Filtration Rate > 60 mL/min (>60) Glucose Level 114 MG/DL (74-106) H Calcium Level 8.4 MG/DL (8.5-10.1) L Total Bilirubin 9.1 MG/DL (0.2-1.0) H Direct Bilirubin 3.5 MG/DL (0.0-0.3) H Aspartate Amino Transf (AST/SGOT) 43 U/L (15-37) H Alanine Aminotransferase (ALT/SGPT) 38 U/L (12-78) Alkaline Phosphatase 122 U/L (46-116) H Total Protein 5.2 G/DL (6.4-8.2) L Albumin 2.2 G/DL (3.4-5.0) L Globulin 3.0 g/dL Albumin/Globulin Ratio 0.7 (1.0-2.7) L Current Medications Medications (Trade) Dose Ordered Sig/Fish Route PRN Reason Start Time Stop Time Status Last Admin Dose Admin Acetaminophen (Tylenol) 325 mg Q6H PRN ORAL Mild Pain/Temp > 100.5 11/08/17 10:00 12/08/17 09:59 11/08/17 16:10 Ceftriaxone Sodium 1 gm/ Sodium Chloride 55 ml @ 110 mls/hr Q24H IVPB 11/08/17 17:00 11/09/17 16:59 11/08/17 17:18 Pantoprazole (Protonix) 40 mg EVERY 12 HOURS IVP 11/07/17 21:00 12/04/17 20:59 11/09/17 08:05 Prednisone (predniSONE) 40 mg DAILY ORAL 11/08/17 09:00 12/02/17 15:44 11/09/17 08:05 Rifaximin (Xifaxan) 550 mg BID ORAL 11/08/17 09:00 12/08/17 08:59 11/09/17 08:05 Marybeth Crouch M.D. Nov 09, 2017 15:19
[2017-11-09 16:00] VITALS: BP 133/75
[2017-11-09 20:00] VITALS: BP 124/70
[2017-11-10] VITALS: BP 138/71
[2017-11-10 04:00] VITALS: BP 127/66
[2017-11-10 07:46] LABS: ALANINE AMINOTRANSFERASE 34 U/L (12-78); ALBUMIN 2.1 G/DL (3.4-5.0); ALBUMIN/GLOBULIN RATIO 0.6 (1.0-2.7); ALKALINE PHOSPHATASE 128 U/L (46-116); ASPARTATE AMINO TRANSFERASE 54 U/L (15-37); BILIRUBIN,TOTAL 9.2 MG/DL (0.2-1.0); BLOOD UREA NITROGEN 16 mg/dL (7-18); CALCIUM 8.7 MG/DL (8.5-10.1); CHLORIDE 108 MMOL/L (98-107); CREATININE 0.6 MG/DL (0.55-1.30); POTASSIUM 4.7 MMOL/L (3.5-5.1); SODIUM 139 MMOL/L (136-145)
[2017-11-10 08:00] VITALS: BP 132/64
[2017-11-10] MEDS: Pantoprazole Inj IVP SCH ×2 (08:48→21:29)
[2017-11-10 10:07] LABS: ANION GAP 7 mmol/L (5-15); CARBON DIOXIDE 24 MMOL/L (21-32)
--- NOTE | 2017-11-10 11:05 | General Progress Note ---
Assessment/Plan Assessment/Plan # Thrombocytopenia. Related to underlying cirrhosis. as well as splenomegaly, if the plt count less than 10k, transfuse immediately. If less than 20k and febrile, transfuse. If less than 50k and bleeding, transfuse. If neurosurgical bleed, transfuse as well. --> Cont abx with ID service. Appreciate recs. --> Cont to monitor PLT count for improvement. --> US of the abdomen has been reviewed --> Current PLT remains 40-80k, remains low # Anemia of chronic disease. Baseline range is 7-10 also is due to myelosuppression, anemia w/u has been reviewed. Will trend CBC as needed. --> Cont to monitor for stability --> Hgb goal above 7 --> Blood tx: 1 unit 11/04 and monitoring in case downtrends # Coagulopathy related to liver disease --> DO NOT GIVE ANY ANTICOAGULANTS, no coumadin, no heparin # Acute encephalopathy- multifactorial likely liver related --> as per gi management # Sepsis: likely SB Peritonitis --> on abx, continue as per primary # Right pleural effusion due to advanced cirrhosis. --> Recommend thoracentesis to improve his respiratory condition # Acute GI-Bleeding S/p esophagogastroduodenoscopy. Continue Protonix gtt --> Monitor H and H. transfuse blood as needed. # Liver cirrhosis, advanced, complicated with ascites and jaundice I GREATLY APPRECIATE THE CONSULTATION. Subjective Constitutional: Denies: no symptoms, chills, diaphoresis, fever, malaise, weakness, other HEENT: Denies: no symptoms, eye pain, blurred vision, tearing, double vision, ear pain, ear discharge, nose pain, nose congestion, throat pain, throat swelling, mouth pain, mouth swelling, other Cardiovascular: Denies: no symptoms, chest pain, edema, irregular heart rate, lightheadedness, palpitations, syncope, other Respiratory: Denies: no symptoms, cough, orthopnea, shortness of breath, SOB with excertion, SOB at rest, sputum, stridor, wheezing, other Gastrointestinal/Abdominal: Denies: no symptoms, abdomen distended, abdominal pain, black stools, tarry stools, blood in stool, constipated, diarrhea, difficulty swallowing, nausea, poor appetite, poor fluid intake, rectal bleeding , vomiting, other Genitourinary: Denies: no symptoms, burning, discharge, frequency, flank pain, hematuria, incontinence, pain, urgency, other Neurologic/Psychiatric: Denies: no symptoms, anxiety, depressed, emotional problems, headache, numbness, paresthesia, pre-existing deficit, seizure, tingling, tremors, weakness, other Endocrine: Denies: no symptoms, excessive sweating, flushing, intolerance to cold, intolerance to heat, increased hunger, increased thirst, increased urine, unexplained weight gain, unexplained weight loss, other Allergies: Coded Allergies: No Known Allergies (Unverified , 11/02/17) Subjective Given vit K yesterday, cleaned and cream applied by rn to perineal area Objective Last 24 Hour Vital Signs Date Time Temp Pulse Resp B/P (MAP) Pulse Ox O2 Delivery O2 Flow Rate FiO2 11/10/17 08:00 97.5 89 20 132/64 (86) 93 97.5 11/10/17 04:00 97.8 81 19 127/66 (86) 100 97.8 11/10/17 00:00 97.7 84 19 138/71 (93) 94 97.7 11/09/17 21:00 Room Air 11/09/17 20:00 98.0 90 19 124/70 (88) 94 98.0 11/09/17 19:54 Nasal Cannula 2.0 28 11/09/17 19:54 96 Nasal Cannula 2.0 28 11/09/17 16:00 98.4 87 20 133/75 (94) 93 98.4 11/09/17 12:00 97.7 93 20 149/73 (98) 93 97.7 Intake and Output 11/09/17 11/10/17 19:00 07:00 Intake Total 600 ml Balance 600 ml Intake Oral 600 ml # Voids 3 # Bowel Movements 1 Laboratory Tests 11/10/17 06:20: Sodium Level 139, Potassium Level 4.7, Chloride Level 108H, Carbon Dioxide Level 24, Anion Gap 7, Blood Urea Nitrogen 16, Creatinine 0.6, Estimat Glomerular Filtration Rate > 60, Glucose Level 99, Calcium Level 8.7, Total Bilirubin 9.2H, Direct Bilirubin 3.0H, Aspartate Amino Transf (AST/SGOT) 54H, Alanine Aminotransferase (ALT/SGPT) 34, Alkaline Phosphatase 128H, Total Protein 5.5L, Albumin 2.1L, Globulin 3.4, Albumin/Globulin Ratio 0.6L Height (Feet): 6 Height (Inches): 2.00 Weight (Pounds): 175 General Appearance: no apparent distress EENT: TMs normal Neck: supple Cardiovascular: normal rate Respiratory/Chest: lungs clear Abdomen: non tender Extremities: non-tender Edema: 1+ Leg (L), 1+ Leg (R) Edema: mild edema Neurologic: alert Sahil Agee MD Nov 10, 2017 11:05
--- NOTE | 2017-11-10 11:43 | GI Progress Note ---
Assessment/Plan Problems: (1) ETOH abuse ICD Codes: F10.10 - Alcohol abuse, uncomplicated SNOMED: 90256462 (2) Cirrhosis of liver with ascites ICD Codes: K74.60 - Unspecified cirrhosis of liver; R18.8 - Other ascites SNOMED: 78964879, 963356408 (3) UGI bleed ICD Codes: K92.2 - Gastrointestinal hemorrhage, unspecified SNOMED: 01353816 (4) Anemia ICD Codes: D64.9 - Anemia, unspecified SNOMED: 358276919 (5) Hepatic encephalopathy ICD Codes: K72.90 - Hepatic failure, unspecified without coma SNOMED: 19513665 (6) Electrolyte imbalance ICD Codes: E87.8 - Other disorders of electrolyte and fluid balance, not elsewhere classified SNOMED: 787745340 (7) Esophageal varices ICD Codes: I85.00 - Esophageal varices without bleeding SNOMED: 26787261 (8) Jaundice ICD Codes: R17 - Unspecified jaundice SNOMED: 61588344 Status: stable, unchanged Status Narrative Discussed with Dr. Fritz. Assessment/Plan s/p EGD SUMMARY OF FINDINGS: 1. No evidence of any active upper GI bleeding. 2. Minimal upper esophagitis. 3. Gastritis. s/p paracentesis removing 4.3L OB stool positive x2 stable H&H RECOMMENDATIONS: colonoscopy cancelled, no recurrent bleed. Monitor hemoglobin and hematocrit. Transfuse as needed. Correct the coagulopathy. low sodium diet fu labs, trend LFTs, ammonia dc planning, hospice per primary The patient was seen and examined at bedside and all new and available data was reviewed in the patients chart. I agree with the above findings, impression and plan. (Patient seen earlier today. Signature stamp does not reflect patient encounter time.). - Morgan Fritz MD Subjective Gastrointestinal/Abdominal: Reports: no symptoms, abdomen distended - ascites Objective Last 24 Hour Vital Signs Date Time Temp Pulse Resp B/P (MAP) Pulse Ox O2 Delivery O2 Flow Rate FiO2 11/10/17 08:00 97.5 89 20 132/64 (86) 93 97.5 11/10/17 04:00 97.8 81 19 127/66 (86) 100 97.8 11/10/17 00:00 97.7 84 19 138/71 (93) 94 97.7 11/09/17 21:00 Room Air 9/12/18 20:00 98.0 90 19 124/70 (88) 94 98.0 11/09/17 19:54 Nasal Cannula 2.0 28 11/09/17 19:54 96 Nasal Cannula 2.0 28 11/09/17 16:00 98.4 87 20 133/75 (94) 93 98.4 11/09/17 12:00 97.7 93 20 149/73 (98) 93 97.7 Intake and Output 11/09/17 11/10/17 19:00 07:00 Intake Total 600 ml Balance 600 ml Intake Oral 600 ml # Voids 3 # Bowel Movements 1 Laboratory Tests Test 11/10/17 06:20 Sodium Level 139 MMOL/L (136-145) Potassium Level 4.7 MMOL/L (3.5-5.1) Chloride Level 108 MMOL/L (98-107) H Carbon Dioxide Level 24 MMOL/L (21-32) Anion Gap 7 mmol/L (5-15) Blood Urea Nitrogen 16 mg/dL (7-18) Creatinine 0.6 MG/DL (0.55-1.30) Estimat Glomerular Filtration Rate > 60 mL/min (>60) Glucose Level 99 MG/DL (74-106) Calcium Level 8.7 MG/DL (8.5-10.1) Total Bilirubin 9.2 MG/DL (0.2-1.0) H Direct Bilirubin 3.0 MG/DL (0.0-0.3) H Aspartate Amino Transf (AST/SGOT) 54 U/L (15-37) H Alanine Aminotransferase (ALT/SGPT) 34 U/L (12-78) Alkaline Phosphatase 128 U/L (46-116) H Total Protein 5.5 G/DL (6.4-8.2) L Albumin 2.1 G/DL (3.4-5.0) L Globulin 3.4 g/dL Albumin/Globulin Ratio 0.6 (1.0-2.7) L Height (Feet): 6 Height (Inches): 2.00 Weight (Pounds): 175 General Appearance: WD/WN, no apparent distress, alert Cardiovascular: normal rate Respiratory/Chest: normal breath sounds, no respiratory distress Abdominal Exam: normal bowel sounds, non tender, soft, ascites Extremities: normal range of motion, non-tender Bolaños,Kylee-Salvador [employer] Nov 10, 2017 11:43
[2017-11-10 12:00] VITALS: BP 150/76
--- NOTE | 2017-11-10 12:10 | General Surgery Progress Note ---
General Surgery-Progress Note Subjective Additional Comments no acute events. doing well. wounds improving. still having loose stools. he is alert and responsive. notes when he needs to have BM. does not ask for assistance and has BM while in bed and lays in it. does not call for assistance. Objective Last 24 Hour Vital Signs Date Time Temp Pulse Resp B/P (MAP) Pulse Ox O2 Delivery O2 Flow Rate FiO2 11/10/17 08:00 97.5 89 20 132/64 (86) 93 97.5 11/10/17 04:00 97.8 81 19 127/66 (86) 100 97.8 11/10/17 00:00 97.7 84 19 138/71 (93) 94 97.7 11/09/17 21:00 Room Air 11/09/17 20:00 98.0 90 19 124/70 (88) 94 98.0 11/09/17 19:54 Nasal Cannula 2.0 28 11/09/17 19:54 96 Nasal Cannula 2.0 28 11/09/17 16:00 98.4 87 20 133/75 (94) 93 98.4 I&O Intake and Output 11/09/17 11/10/17 19:00 07:00 Intake Total 600 ml Balance 600 ml Intake Oral 600 ml # Voids 3 # Bowel Movements 1 Dressing: other Wound: other Drains: other Cardiovascular: RSR Respiratory: clear Abdomen: soft, flat, present bowel sounds Extremities: other Laboratory Tests Test 11/10/17 06:20 Sodium Level 139 MMOL/L (136-145) Potassium Level 4.7 MMOL/L (3.5-5.1) Chloride Level 108 MMOL/L (98-107) H Carbon Dioxide Level 24 MMOL/L (21-32) Anion Gap 7 mmol/L (5-15) Blood Urea Nitrogen 16 mg/dL (7-18) Creatinine 0.6 MG/DL (0.55-1.30) Estimat Glomerular Filtration Rate > 60 mL/min (>60) Glucose Level 99 MG/DL (74-106) Calcium Level 8.7 MG/DL (8.5-10.1) Total Bilirubin 9.2 MG/DL (0.2-1.0) H Direct Bilirubin 3.0 MG/DL (0.0-0.3) H Aspartate Amino Transf (AST/SGOT) 54 U/L (15-37) H Alanine Aminotransferase (ALT/SGPT) 34 U/L (12-78) Alkaline Phosphatase 128 U/L (46-116) H Total Protein 5.5 G/DL (6.4-8.2) L Albumin 2.1 G/DL (3.4-5.0) L Globulin 3.4 g/dL Albumin/Globulin Ratio 0.6 (1.0-2.7) L Plan Problems: (1) UGI bleed Assessment & Plan: seems to have stopped. EGD without active bleeding Colonoscopy deferred at this time appreciate GI input trend labs - improving unfortunately given history poor prognosis. (2) Skin abnormalities Assessment & Plan: sacral and posterior thigh wounds partial thickness stage II wounds with epidermal loss and dermal irritation. etiology does not seem to be pressure; possibly from laying in bloody stool for prolonged period of time? no history of injury or trauma improved on exam today. needs to ask for assistance and stop laying in his feces -wash site daily and prn -skin protectant daily and prn -okay for non adherent dressings. -will take time to heal given comorbidities thank you Orville Alcala Nov 10, 2017 12:10
--- NOTE | 2017-11-10 15:52 | General Progress Note ---
Assessment/Plan Assessment/Plan S: My geri hurts O: appears fatigued. Tolerating PO diet. off restraint. Denies nausea. Requesting to stay longer in the hospital setting PHYSICAL EXAMINATION: GENERAL: A middle-aged male, cachectic with ascites and jaundice, lying in bed, lethargic, and confused, not in distress. HEENT: Normocephalic and atraumatic. Jaundiced sclera. Jaundiced oral mucosa. No exudate. NECK: Supple. No lymphadenopathy. CARDIOVASCULAR: He is tachycardic. There is a systolic murmur in the mitral valve area. LUNGS: Bronchial bs, No wheezing .ABDOMEN: Soft. Distended with ascites. .EXTREMITY: With edema. No cyanosis.SKIN: With jaundice and spider angioma., Neuro: CN intact, more awake and alert now Meds: reviewed and reconciled, including Xifican ASSESSMENT AND RECOMMENDATION: 1. Acute Encephalopathy- multifactorial 2. Sepsis: likely SB Peritonisit, 2. Right pleural effusion due to advanced cirrhosis. Recommend thoracentesis to improve his respiratory condition. 3. Acute GI-Bleeding S/p esophagogastroduodenoscopy. Continue Protonix drip. Monitor H and H. transfuse blood as needed. 4. Liver cirrhosis, advanced, complicated with ascites and jaundice 5. Full code 6. Refusal of hospice care Plan: Post FFP and PRBC trasfusion Poor Prognosis Full code Consult Hospice Will recheck HH Ok to start low dose Tylenol PRN DCP in progress Subjective Allergies: Coded Allergies: No Known Allergies (Unverified , 11/02/17) Objective Last 24 Hour Vital Signs Date Time Temp Pulse Resp B/P (MAP) Pulse Ox O2 Delivery O2 Flow Rate FiO2 11/10/17 12:00 98.1 88 18 150/76 (100) 93 98.1 11/10/17 08:27 Nasal Cannula 2.0 28 11/10/17 08:26 94 Nasal Cannula 2.0 28 11/10/17 08:00 97.5 89 20 132/64 (86) 93 97.5 11/10/17 04:00 97.8 81 19 127/66 (86) 100 97.8 11/10/17 00:00 97.7 84 19 138/71 (93) 94 97.7 11/09/17 21:00 Room Air 11/09/17 20:00 98.0 90 19 124/70 (88) 94 98.0 11/09/17 19:54 Nasal Cannula 2.0 28 11/09/17 19:54 96 Nasal Cannula 2.0 28 11/09/17 16:00 98.4 87 20 133/75 (94) 93 98.4 Intake and Output 11/09/17 11/10/17 19:00 07:00 Intake Total 600 ml Balance 600 ml Intake Oral 600 ml # Voids 3 # Bowel Movements 1 Laboratory Tests 11/10/17 06:20: Sodium Level 139, Potassium Level 4.7, Chloride Level 108H, Carbon Dioxide Level 24, Anion Gap 7, Blood Urea Nitrogen 16, Creatinine 0.6, Estimat Glomerular Filtration Rate > 60, Glucose Level 99, Calcium Level 8.7, Total Bilirubin 9.2H, Direct Bilirubin 3.0H, Aspartate Amino Transf (AST/SGOT) 54H, Alanine Aminotransferase (ALT/SGPT) 34, Alkaline Phosphatase 128H, Total Protein 5.5L, Albumin 2.1L, Globulin 3.4, Albumin/Globulin Ratio 0.6L Height (Feet): 6 Height (Inches): 2.00 Weight (Pounds): 175 Fauzia Patel MD Nov 10, 2017 15:52
[2017-11-10 16:00] VITALS: BP 130/84
[2017-11-10] MEDS ORDERED: NS 275ml ONE (16:09)
[2017-11-10] MEDS ORDERED: Tubing IV Secondary IV ONE (16:09)
[2017-11-10 19:26] LABS: HEMATOCRIT 22.5 % (42.0-52.0); HEMOGLOBIN 7.9 G/DL (14.2-18.0); MEAN CORPUSCULAR VOLUME 100 FL (80-99); PLATELET COUNT 126 K/UL (150-450); RED BLOOD COUNT 2.25 M/UL (4.70-6.10); RED CELL DISTRIBUTION WIDTH 21.3 % (11.6-14.8); WHITE BLOOD COUNT 20.1 K/UL (4.8-10.8)
[2017-11-10 20:00] VITALS: BP 135/76
--- NOTE | 2017-11-10 22:25 | Infectious Diseases Prog Note ---
Assessment/Plan Problems: (1) Leukocytosis, unspecified Assessment & Plan: not due to sepsis, with negative blood culture so far , S/ P ceftriaxon empirically for SBP prophylaxis for 7 days . (2) Pleural effusion on right Assessment & Plan: suspect due to liver cirrhosis , recommend thoracentesis and fluids culture with cytology (3) Cirrhosis of liver with ascites Assessment & Plan: advanced complicated with UGI bleeding, on PPI and steroids per GI , poor prognosis. avoid hepatotoxics (4) UGI bleed Assessment & Plan: due to liver cirrhosis with no esophageal varices on EGD , continue PPI, transfuse blood as needed, Gi is following (5) Hepatic encephalopathy Assessment & Plan: due to liver cirrhosis , continue lactulose and rifixamin (6) Ascites Assessment & Plan: S/P paracentesis , fluids culture so far is negative (7) Diarrhea Assessment & Plan: suspect due to lactulose with negative C diff Subjective Constitutional: Reports: fatigue HEENT: Reports: no symptoms Respiratory: Reports: dry cough Breasts: Reports: no symptoms Cardiovascular: Reports: no symptoms, dyspnea on exertion Gastrointestinal/Abdominal: Reports: diarrhea, bloating Genitourinary: Reports: no symptoms Neurologic: Reports: weakness Psychiatric: Reports: no symptoms Skin: Reports: no symptoms Endocrine: Reports: no symptoms Hematologic: Reports: no symptoms Musculoskeletal: Reports: swelling Allergies: Coded Allergies: No Known Allergies (Unverified , 11/02/17) Objective Vital Signs Last 24 Hour Vital Signs Date Time Temp Pulse Resp B/P (MAP) Pulse Ox O2 Delivery O2 Flow Rate FiO2 11/10/17 21:27 93 Room Air 11/10/17 21:27 Room Air 11/10/17 20:00 97.4 101 19 135/76 (95) 92 97.4 11/10/17 16:00 97.9 104 20 130/84 (99) 92 97.9 11/10/17 12:00 98.1 88 18 150/76 (100) 93 98.1 11/10/17 08:27 Nasal Cannula 2.0 28 11/10/17 08:26 94 Nasal Cannula 2.0 28 11/10/17 08:00 97.5 89 20 132/64 (86) 93 97.5 11/10/17 04:00 97.8 81 19 127/66 (86) 100 97.8 11/10/17 00:00 97.7 84 19 138/71 (93) 94 97.7 Height (Feet): 6 Height (Inches): 2.00 Weight (Pounds): 175 General Appearance: WD/WN, no acute distress, cachetic HEENT: normocephalic, atraumatic, mucous membranes moist, PERRL, EOMI, pharynx normal, supple, no JVD Respiratory/Chest: chest wall non-tender, no respiratory distress, no accessory muscle use, decreased breath sounds, crackles/rales, expiratory wheezing Cardiovascular: normal peripheral pulses, normal rate, regular rhythm, no gallop/murmur, no JVD Abdomen: soft, non tender, no mass, no scars, hypoactive bowel sounds, distended Genitourinary: normal external genitalia Extremities: no cyanosis, no clubbing Skin: no rash, no lesions, ulcers Neurologic/Psychiatric: alert, oriented x 3, responsive Lymphatic: no neck adenopathy, no groin adenopathy Musculoskeletal: normal muscle bulk, no effusion Laboratory Tests Test 11/10/17 06:20 11/10/17 19:15 Sodium Level 139 MMOL/L (136-145) Potassium Level 4.7 MMOL/L (3.5-5.1) Chloride Level 108 MMOL/L (98-107) H Carbon Dioxide Level 24 MMOL/L (21-32) Anion Gap 7 mmol/L (5-15) Blood Urea Nitrogen 16 mg/dL (7-18) Creatinine 0.6 MG/DL (0.55-1.30) Estimat Glomerular Filtration Rate > 60 mL/min (>60) Glucose Level 99 MG/DL (74-106) Calcium Level 8.7 MG/DL (8.5-10.1) Total Bilirubin 9.2 MG/DL (0.2-1.0) H Direct Bilirubin 3.0 MG/DL (0.0-0.3) H Aspartate Amino Transf (AST/SGOT) 54 U/L (15-37) H Alanine Aminotransferase (ALT/SGPT) 34 U/L (12-78) Alkaline Phosphatase 128 U/L (46-116) H Total Protein 5.5 G/DL (6.4-8.2) L Albumin 2.1 G/DL (3.4-5.0) L Globulin 3.4 g/dL Albumin/Globulin Ratio 0.6 (1.0-2.7) L White Blood Count 20.1 K/UL (4.8-10.8) H Red Blood Count 2.25 M/UL (4.70-6.10) L Hemoglobin 7.9 G/DL (14.2-18.0) L Hematocrit 22.5 % (42.0-52.0) L Mean Corpuscular Volume 100 FL (80-99) H Mean Corpuscular Hemoglobin 35.2 PG (27.0-31.0) H Mean Corpuscular Hemoglobin Concent 35.4 G/DL (32.0-36.0) Red Cell Distribution Width 21.3 % (11.6-14.8) H Platelet Count 126 K/UL (150-450) L Mean Platelet Volume 6.8 FL (6.5-10.1) Neutrophils (%) (Auto) % (45.0-75.0) Lymphocytes (%) (Auto) % (20.0-45.0) Monocytes (%) (Auto) % (1.0-10.0) Eosinophils (%) (Auto) % (0.0-3.0) Basophils (%) (Auto) % (0.0-2.0) Differential Total Cells Counted 100 Neutrophils % (Manual) 95 % (45-75) H Lymphocytes % (Manual) 2 % (20-45) L Monocytes % (Manual) 3 % (1-10) Eosinophils % (Manual) 0 % (0-3) Basophils % (Manual) 0 % (0-2) Band Neutrophils 0 % (0-8) Platelet Estimate Decreased L Platelet Morphology Normal Polychromasia 1+ Poikilocytosis 1+ Anisocytosis 2+ Macrocytosis 2+ Current Medications Medications (Trade) Dose Ordered Sig/Fish Route PRN Reason Start Time Stop Time Status Last Admin Dose Admin Acetaminophen (Tylenol) 325 mg Q6H PRN ORAL Mild Pain/Temp > 100.5 11/08/17 10:00 12/08/17 09:59 11/08/17 16:10 Nystatin (Nystatin Cr) 1 applic THREE TIMES A DAY TOPIC 11/10/17 10:30 12/10/17 10:29 11/10/17 19:17 Pantoprazole (Protonix) 40 mg EVERY 12 HOURS IVP 11/07/17 21:00 12/04/17 20:59 11/10/17 21:29 Prednisone (predniSONE) 40 mg DAILY ORAL 11/08/17 09:00 12/02/17 15:44 11/10/17 08:48 Rifaximin (Xifaxan) 550 mg BID ORAL 11/08/17 09:00 12/08/17 08:59 11/10/17 08:48 Sodium Phosphate (Fleet's Sodium Phosl Enema) 133 ml ONCE ONCE RECTAL 11/10/17 23:00 11/10/17 23:01 Sodium Phosphate (Fleet's Sodium Phosl Enema) 133 ml ONCE ONCE RECTAL 11/11/17 01:00 11/11/17 01:01 Marybeth Crouch M.D. Nov 10, 2017 22:25
[2017-11-10] MEDS ORDERED: Fleet's Enema 133ml RECTAL ONE (23:00)
[2017-11-11] VITALS (11 sets, daily range): BP systolic 120–152; BP diastolic 65–89
[2017-11-11] MEDS ORDERED: Fleet's Enema 133ml RECTAL ONE (01:00)
[2017-11-11 03:52] LABS: ALANINE AMINOTRANSFERASE 34 U/L (12-78); ALBUMIN/GLOBULIN RATIO 0.7 (1.0-2.7); ALKALINE PHOSPHATASE 99 U/L (46-116); ANION GAP 5 mmol/L (5-15); ASPARTATE AMINO TRANSFERASE 40 U/L (15-37); BILIRUBIN,TOTAL 11.3 MG/DL (0.2-1.0); BLOOD UREA NITROGEN 18 mg/dL (7-18); CALCIUM 8.1 MG/DL (8.5-10.1); CARBON DIOXIDE 24 MMOL/L (21-32); CHLORIDE 105 MMOL/L (98-107); CREATININE 0.6 MG/DL (0.55-1.30); POTASSIUM 4.4 MMOL/L (3.5-5.1); SODIUM 134 MMOL/L (136-145)
[2017-11-11 04:11] LABS: BILIRUBIN,DIRECT 3.6 MG/DL (0.0-0.3)
[2017-11-11] MEDS: Pantoprazole Inj IVP SCH ×2 (09:15→20:42)
--- NOTE | 2017-11-11 09:37 | Pre-Procedure Note/Attestation ---
Pre-Procedure Note/Attestation Complete Prior to Procedure Planned Procedure: not applicable Procedure Narrative: colonoscopy Indications for Procedure Pre-Operative Diagnosis: GIB Attestation I attest that I discussed the nature of the procedure; its benefits; risks and complications; and alternatives (and the risks and benefits of such alternatives ), prior to the procedure, with the patient (or the patient's legal business services representative). I attest that, if there was a reasonable possibility of needing a blood transfusion, the patient (or the patient's legal business services representative) was given the [facility] standardized written summary, pursuant to the Geraldo Johanna Blood Safety Act ([place] Health and Safety Code # 1645, as amended). I attest that I re-evaluated the patient just prior to the surgery and that there has been no change in the patient's H&P, except as documented below: Morgan Fritz MD Nov 11, 2017 09:37
--- NOTE | 2017-11-11 10:00 | Endoscopy Procedure Note ---
Endoscopy Procedure Note General Indication for Procedure: gib Procedures Performed: colonoscopy Operative Findings/Diagnosis: poor prep Specimen: none Pt Tolerated Procedure Well: Yes Estimated Blood Loss: none Anesthesia Anesthesiologist: kip Anesthesia: MAC Inserted Devices Implant(s) used?: No Quality Quality of Bowel Preparation: Poor Did scope reach the cecum?: No Why scope didn't reach cecum: Bowel preparation poor Was there any complications?: No GI Core Measures 50 yrs or older w/o bx or poly: Not Applicable 10yrs. F/U not recommended: Not Applicable Morgan Fritz MD Nov 11, 2017 10:00
--- NOTE | 2017-11-11 10:23 | Anethesia Preoperative Eval ---
Anesthesia Pre-op PMH/ROS General Date of Evaluation: Nov 11, 2017 Time of Evaluation: 09:00 Anesthesiologist: chelle ASA Score: ASA 4 Mallampati Score Class I : Soft palate, uvula, fauces, pillars visible Class II: Soft palate, uvula, fauces visible Class III: Soft palate, base of uvula visible Class IV: Only hard plate visible Mallampati Classification: Class II Surgeon: castillo Diagnosis: GI Bleed Surgical Procedure: Colonoscopy Anesthesia History: none Social History: alcohol use Family History: no anesthesia problems Allergies: Coded Allergies: No Known Allergies (Unverified , 11/02/17) Medications: see eMAR Past Medical History Cardiovascular: Denies: HTN, CAD, VA, valve dz, arrhythmia, other Pulmonary: Denies: asthma, COPD, MONTY, other Gastrointestinal/Genitourinary: Reports: GERD; Denies: CRI, ESRD, other Neurologic/Psychiatric: Denies: dementia, CVA, depression/anxiety, TIA, other Endocrine: Denies: DM, hypothyroidism, steroids, other HEENT: Denies: cataract (L), cataract (R), glaucoma, [place] (L), [place] (R), other Hematology/Immune: Reports: anemia, bleeding disorder Other: other - hepatic encephalopathy; varices, Jaundice PSxH Narrative: EGD Anesthesia Pre-op Phys. Exam Physician Exam Last Vital Signs Date Time Temp Pulse Resp B/P (MAP) Pulse Ox O2 Delivery O2 Flow Rate FiO2 11/11/17 04:00 97.8 92 20 123/73 (90) 96 97.8 11/11/17 04:00 Nasal Cannula 3.0 11/10/17 08:27 28 Constitutional: NAD Neurologic: CN 2-12 intact Cardiovascular: RRR Respiratory: CTA Airway Exam Mallampati Classification 2 Mallampati Score: Class II MO: full ROM: full Dentures: no upper, no lower Anesthesia Pre-op A/P Labs Hematology Test 11/10/17 19:15 White Blood Count 20.1 K/UL (4.8-10.8) H Red Blood Count 2.25 M/UL (4.70-6.10) L Hemoglobin 7.9 G/DL (14.2-18.0) L Hematocrit 22.5 % (42.0-52.0) L Mean Corpuscular Volume 100 FL (80-99) H Mean Corpuscular Hemoglobin 35.2 PG (27.0-31.0) H Mean Corpuscular Hemoglobin Concent 35.4 G/DL (32.0-36.0) Red Cell Distribution Width 21.3 % (11.6-14.8) H Platelet Count 126 K/UL (150-450) L Mean Platelet Volume 6.8 FL (6.5-10.1) Neutrophils (%) (Auto) % (45.0-75.0) Lymphocytes (%) (Auto) % (20.0-45.0) Monocytes (%) (Auto) % (1.0-10.0) Eosinophils (%) (Auto) % (0.0-3.0) Basophils (%) (Auto) % (0.0-2.0) Differential Total Cells Counted 100 Neutrophils % (Manual) 95 % (45-75) H Lymphocytes % (Manual) 2 % (20-45) L Monocytes % (Manual) 3 % (1-10) Eosinophils % (Manual) 0 % (0-3) Basophils % (Manual) 0 % (0-2) Band Neutrophils 0 % (0-8) Platelet Estimate Decreased L Platelet Morphology Normal Polychromasia 1+ Poikilocytosis 1+ Anisocytosis 2+ Macrocytosis 2+ Coagulation Test 11/11/17 03:20 Prothrombin Time Pending Prothromb Time International Ratio Pending Activated Partial Thromboplast Time Pending Chemistry Test 11/11/17 03:20 Sodium Level 134 MMOL/L (136-145) L Potassium Level 4.4 MMOL/L (3.5-5.1) Chloride Level 105 MMOL/L (98-107) Carbon Dioxide Level 24 MMOL/L (21-32) Anion Gap 5 mmol/L (5-15) Blood Urea Nitrogen 18 mg/dL (7-18) Creatinine 0.6 MG/DL (0.55-1.30) Estimat Glomerular Filtration Rate > 60 mL/min (>60) Glucose Level 113 MG/DL (74-106) H Calcium Level 8.1 MG/DL (8.5-10.1) L Total Bilirubin 11.3 MG/DL (0.2-1.0) H Direct Bilirubin 3.6 MG/DL (0.0-0.3) H Aspartate Amino Transf (AST/SGOT) 40 U/L (15-37) H Alanine Aminotransferase (ALT/SGPT) 34 U/L (12-78) Alkaline Phosphatase 99 U/L (46-116) Total Protein 4.7 G/DL (6.4-8.2) L Albumin 2.0 G/DL (3.4-5.0) L Globulin 2.7 g/dL Albumin/Globulin Ratio 0.7 (1.0-2.7) L Studies Pre-op Studies: EKG - sr Risk Assessment & Plan Assessment: receiving 2 units of PRBC Plan: mac Pre-Antibiotics Drug: none Rona Lopez CRNA Nov 11, 2017 10:23
--- NOTE | 2017-11-11 10:25 | Immediate Post-Op Evaluation ---
Immediate Post-Op Evalulation Immediate Post-Op Evalulation Procedure: EGD Date of Evaluation: Nov 11, 2017 Time of Evaluation: 10:24 IV Fluids: 300 Blood Products: 150 Blood Pressure Systolic: 120 Blood Pressure Diastolic: 80 Pulse Rate: 86 Respiratory Rate: 14 O2 Sat by Pulse Oximetry: 98 Nausea: No Vomiting: No Complications none Patient Status: awake, reacts, patent Hydration Status: adequate Drug: none Rona Lopez CRNA Nov 11, 2017 10:25
--- NOTE | 2017-11-11 11:00 | Procedure Note ---
DATE OF PROCEDURE: 11/11/2017 SURGEON: Morgan Fritz M.D. ANESTHESIOLOGIST: Rona NICHOLS. PROCEDURE: Colonoscopy. ANESTHESIA: Per Rona NICHOLS. INSTRUMENT: Olympus adult flexible colonoscope. INDICATION: Rectal bleeding. The procedure, risks, benefits, and possible consequences, including hemorrhage, aspiration, perforation and infection, and alternative treatments, were explained to the patient/legal guardian by Dr. Morgan Fritz and the patient/legal guardian understood and accepted these risks. DESCRIPTION OF PROCEDURE: After informed consent was obtained and the patient was adequately sedated, first rectal exam was performed which was positive for internal hemorrhoids. Then, the scope was advanced from the rectum into the proximal transverse colon. Given poor prep, we could not advance the scope beyond this point. Again, this examination was limited given the patient had poor prep, but we did not see any obvious source of bleeding. No diverticulosis. No obvious polyp or mass was seen with this poor prep. Retroflexion of rectum showed evidence of some internal hemorrhoids. SUMMARY OF FINDINGS: 1. Poor colonic prep. 2. Internal hemorrhoids. RECOMMENDATIONS: 1. Treat for hemorrhoids. 2. Follow hemoglobin and hematocrit. Transfuse as needed. 3. Start clear-liquid diet. Advance as tolerated. Morgan Fritz M.D. DR: Izabel JOB#: [id number] CC:
--- NOTE | 2017-11-11 11:03 | General Surgery Progress Note ---
General Surgery-Progress Note Subjective Additional Comments bleeding overnight. colonoscopy today. transfusions ordered. transferred to [facility] Objective Last 24 Hour Vital Signs Date Time Temp Pulse Resp B/P (MAP) Pulse Ox O2 Delivery O2 Flow Rate FiO2 11/11/17 10:25 86 14 98 11/11/17 04:00 97.8 92 20 123/73 (90) 96 97.8 11/11/17 04:00 Nasal Cannula 3.0 11/11/17 04:00 92 11/11/17 00:00 97.7 97 19 132/65 (87) 91 97.7 11/10/17 23:41 Room Air 11/10/17 21:27 93 Room Air 11/10/17 21:27 Room Air 11/10/17 20:00 97.4 101 19 135/76 (95) 92 97.4 11/10/17 16:00 97.9 104 20 130/84 (99) 92 97.9 11/10/17 12:00 98.1 88 18 150/76 (100) 93 98.1 I&O Intake and Output 11/10/17 11/11/17 19:00 07:00 Intake Total 560 ml Balance 560 ml Intake Oral 560 ml # Voids 2 1 # Bowel Movements 2 2 Dressing: saturated Wound: clean Drains: none Cardiovascular: RSR Respiratory: clear Abdomen: soft, flat, present bowel sounds Extremities: no cyanosis Laboratory Tests Test 11/10/17 19:15 11/11/17 03:20 White Blood Count 20.1 K/UL (4.8-10.8) H Red Blood Count 2.25 M/UL (4.70-6.10) L Hemoglobin 7.9 G/DL (14.2-18.0) L Hematocrit 22.5 % (42.0-52.0) L Mean Corpuscular Volume 100 FL (80-99) H Mean Corpuscular Hemoglobin 35.2 PG (27.0-31.0) H Mean Corpuscular Hemoglobin Concent 35.4 G/DL (32.0-36.0) Red Cell Distribution Width 21.3 % (11.6-14.8) H Platelet Count 126 K/UL (150-450) L Mean Platelet Volume 6.8 FL (6.5-10.1) Neutrophils (%) (Auto) % (45.0-75.0) Lymphocytes (%) (Auto) % (20.0-45.0) Monocytes (%) (Auto) % (1.0-10.0) Eosinophils (%) (Auto) % (0.0-3.0) Basophils (%) (Auto) % (0.0-2.0) Differential Total Cells Counted 100 Neutrophils % (Manual) 95 % (45-75) H Lymphocytes % (Manual) 2 % (20-45) L Monocytes % (Manual) 3 % (1-10) Eosinophils % (Manual) 0 % (0-3) Basophils % (Manual) 0 % (0-2) Band Neutrophils 0 % (0-8) Platelet Estimate Decreased L Platelet Morphology Normal Polychromasia 1+ Poikilocytosis 1+ Anisocytosis 2+ Macrocytosis 2+ Prothrombin Time Pending Prothromb Time International Ratio Pending Activated Partial Thromboplast Time Pending Sodium Level 134 MMOL/L (136-145) L Potassium Level 4.4 MMOL/L (3.5-5.1) Chloride Level 105 MMOL/L (98-107) Carbon Dioxide Level 24 MMOL/L (21-32) Anion Gap 5 mmol/L (5-15) Blood Urea Nitrogen 18 mg/dL (7-18) Creatinine 0.6 MG/DL (0.55-1.30) Estimat Glomerular Filtration Rate > 60 mL/min (>60) Glucose Level 113 MG/DL (74-106) H Calcium Level 8.1 MG/DL (8.5-10.1) L Total Bilirubin 11.3 MG/DL (0.2-1.0) H Direct Bilirubin 3.6 MG/DL (0.0-0.3) H Aspartate Amino Transf (AST/SGOT) 40 U/L (15-37) H Alanine Aminotransferase (ALT/SGPT) 34 U/L (12-78) Alkaline Phosphatase 99 U/L (46-116) Total Protein 4.7 G/DL (6.4-8.2) L Albumin 2.0 G/DL (3.4-5.0) L Globulin 2.7 g/dL Albumin/Globulin Ratio 0.7 (1.0-2.7) L Plan Problems: (1) UGI bleed Assessment & Plan: seems to have stopped. EGD without active bleeding Colonoscopy deferred initially appreciate GI input trend labs - improving repeat rectal bleeding - colonoscopy today f/u GI report transfuse prn unfortunately given history poor prognosis. (2) Skin abnormalities Assessment & Plan: sacral and posterior thigh wounds partial thickness stage II wounds with epidermal loss and dermal irritation. etiology does not seem to be pressure; possibly from laying in bloody stool for prolonged period of time? no history of injury or trauma improved on exam today. needs to ask for assistance and stop laying in his feces -wash site daily and prn -skin protectant daily and prn -okay for non adherent dressings. -will take time to heal given comorbidities thank you Orville Alcala Nov 11, 2017 11:03
--- NOTE | 2017-11-11 12:24 | 48 Hour Post Anesthesia Eval ---
Post Anesthesia Evaluation Procedure: EGD Date of Evaluation: Nov 11, 2017 Time of Evaluation: 12:24 Blood Pressure Systolic: 120 0: 84 Pulse Rate: 85 O2 Sat by Pulse Oximetry: 98 Airway: patent Nausea: No Vomiting: No Hydration Status: adequate Cardiopulmonary Status: stable Mental Status/LOC: patient returned to baseline Post-Anesthesia Complications: none Follow-up care needed: N/A Rona Lopez CRNA Nov 11, 2017 12:24
--- NOTE | 2017-11-11 14:29 | Infectious Diseases Prog Note ---
Assessment/Plan Problems: (1) Leukocytosis, unspecified Assessment & Plan: rule out sepsis, with recurrent bleeding , had negative blood culture on admission , S/P ceftriaxon empirically for SBP prophylaxis for 7 days . will repeat another blood culture today and obtain CXR , monitor off antibiotics for now (2) Pleural effusion on right Assessment & Plan: suspect due to liver cirrhosis , recommend thoracentesis and fluids culture with cytology (3) Cirrhosis of liver with ascites Assessment & Plan: advanced complicated with UGI bleeding, on PPI and steroids per GI , poor prognosis. avoid hepatotoxics (4) UGI bleed Assessment & Plan: due to liver cirrhosis with no esophageal varices on EGD , continue PPI, transfuse blood as needed, Gi is following (5) Hepatic encephalopathy Assessment & Plan: due to liver cirrhosis , continue lactulose and rifixamin (6) Ascites Assessment & Plan: S/P paracentesis , fluids culture so far is negative (7) Diarrhea Assessment & Plan: suspect due to lactulose with negative C diff Subjective Constitutional: Reports: fatigue HEENT: Reports: no symptoms Respiratory: Reports: no symptoms Cardiovascular: Reports: no symptoms Gastrointestinal/Abdominal: Reports: diarrhea, blood in stool, bloating Genitourinary: Reports: no symptoms Neurologic: Reports: weakness Psychiatric: Reports: no symptoms Skin: Reports: ulcer Endocrine: Reports: no symptoms Hematologic: Reports: bleeding Musculoskeletal: Reports: no symptoms Allergies: Coded Allergies: No Known Allergies (Unverified , 11/02/17) Subjective he had massive bleeding yesterday and became hypoxemic , was transferred to SDU , now more stable after received transfusion, no productive cough, fever or chills . Objective Vital Signs Last 24 Hour Vital Signs Date Time Temp Pulse Resp B/P (MAP) Pulse Ox O2 Delivery O2 Flow Rate FiO2 11/11/17 12:24 1 11/11/17 10:35 98.2 82 14 120/84 94 Nasal Cannula 3 98.2 11/11/17 10:25 85 14 131/72 94 Nasal Cannula 3 11/11/17 10:25 86 14 98 11/11/17 10:10 86 14 125/76 96 Nasal Cannula 3 11/11/17 10:05 86 14 127/74 96 Nasal Cannula 3 11/11/17 10:00 98.1 86 14 120/89 96 Nasal Cannula 3 98.1 11/11/17 04:00 97.8 92 20 123/73 (90) 96 97.8 11/11/17 04:00 Nasal Cannula 3.0 11/11/17 04:00 92 11/11/17 00:00 97.7 97 19 132/65 (87) 91 97.7 11/10/17 23:41 Room Air 11/10/17 21:27 93 Room Air 11/10/17 21:27 Room Air 11/10/17 20:00 97.4 101 19 135/76 (95) 92 97.4 11/10/17 16:00 97.9 104 20 130/84 (99) 92 97.9 Height (Feet): 6 Height (Inches): 2.00 Weight (Pounds): 180 General Appearance: WD/WN, no acute distress, cachetic, other - pale HEENT: normocephalic, atraumatic, anicteric, mucous membranes moist, PERRL Respiratory/Chest: chest wall non-tender, no respiratory distress, no accessory muscle use, decreased breath sounds, crackles/rales Cardiovascular: normal peripheral pulses, normal rate, regular rhythm, no gallop/murmur, no JVD Abdomen: normal bowel sounds, soft, non tender, no organomegaly, non distended , no mass, no scars Extremities: no cyanosis, no clubbing Skin: no rash, no lesions, no ulcers Neurologic/Psychiatric: alert, oriented x 3, responsive Laboratory Tests Test 11/10/17 19:15 11/11/17 03:20 White Blood Count 20.1 K/UL (4.8-10.8) H Red Blood Count 2.25 M/UL (4.70-6.10) L Hemoglobin 7.9 G/DL (14.2-18.0) L Hematocrit 22.5 % (42.0-52.0) L Mean Corpuscular Volume 100 FL (80-99) H Mean Corpuscular Hemoglobin 35.2 PG (27.0-31.0) H Mean Corpuscular Hemoglobin Concent 35.4 G/DL (32.0-36.0) Red Cell Distribution Width 21.3 % (11.6-14.8) H Platelet Count 126 K/UL (150-450) L Mean Platelet Volume 6.8 FL (6.5-10.1) Neutrophils (%) (Auto) % (45.0-75.0) Lymphocytes (%) (Auto) % (20.0-45.0) Monocytes (%) (Auto) % (1.0-10.0) Eosinophils (%) (Auto) % (0.0-3.0) Basophils (%) (Auto) % (0.0-2.0) Differential Total Cells Counted 100 Neutrophils % (Manual) 95 % (45-75) H Lymphocytes % (Manual) 2 % (20-45) L Monocytes % (Manual) 3 % (1-10) Eosinophils % (Manual) 0 % (0-3) Basophils % (Manual) 0 % (0-2) Band Neutrophils 0 % (0-8) Platelet Estimate Decreased L Platelet Morphology Normal Polychromasia 1+ Poikilocytosis 1+ Anisocytosis 2+ Macrocytosis 2+ Prothrombin Time Pending Prothromb Time International Ratio Pending Activated Partial Thromboplast Time Pending Sodium Level 134 MMOL/L (136-145) L Potassium Level 4.4 MMOL/L (3.5-5.1) Chloride Level 105 MMOL/L (98-107) Carbon Dioxide Level 24 MMOL/L (21-32) Anion Gap 5 mmol/L (5-15) Blood Urea Nitrogen 18 mg/dL (7-18) Creatinine 0.6 MG/DL (0.55-1.30) Estimat Glomerular Filtration Rate > 60 mL/min (>60) Glucose Level 113 MG/DL (74-106) H Calcium Level 8.1 MG/DL (8.5-10.1) L Total Bilirubin 11.3 MG/DL (0.2-1.0) H Direct Bilirubin 3.6 MG/DL (0.0-0.3) H Aspartate Amino Transf (AST/SGOT) 40 U/L (15-37) H Alanine Aminotransferase (ALT/SGPT) 34 U/L (12-78) Alkaline Phosphatase 99 U/L (46-116) Total Protein 4.7 G/DL (6.4-8.2) L Albumin 2.0 G/DL (3.4-5.0) L Globulin 2.7 g/dL Albumin/Globulin Ratio 0.7 (1.0-2.7) L Current Medications Medications (Trade) Dose Ordered Sig/Fish Route PRN Reason Start Time Stop Time Status Last Admin Dose Admin Acetaminophen (Tylenol) 325 mg Q6H PRN ORAL Mild Pain/Temp > 100.5 11/11/17 04:00 12/08/17 09:59 Hydrocortisone (Anusol HC) 1 supp TWICE A DAY RECTAL 11/11/17 18:00 12/11/17 17:59 Nystatin (Nystatin Cr) 1 applic THREE TIMES A DAY TOPIC 11/11/17 09:00 12/10/17 10:29 11/11/17 13:00 Pantoprazole (Protonix) 40 mg EVERY 12 HOURS IVP 11/11/17 09:00 12/04/17 20:59 11/11/17 09:15 Prednisone (predniSONE) 40 mg DAILY ORAL 11/11/17 09:00 12/02/17 15:44 11/11/17 09:15 Rifaximin (Xifaxan) 550 mg BID ORAL 11/11/17 09:00 12/08/17 08:59 11/11/17 09:15 Marybeth Crouch M.D. Nov 11, 2017 14:29
[2017-11-11 16:19] LABS: HEMATOCRIT 25.3 % (42.0-52.0); MEAN CORPUSCULAR VOLUME 97 FL (80-99); PLATELET COUNT 80 K/UL (150-450); RED BLOOD COUNT 2.61 M/UL (4.70-6.10); RED CELL DISTRIBUTION WIDTH 21.2 % (11.6-14.8)
[2017-11-11 16:21] LABS: LYMPHOCYTES % (AUTO) 2.6 % (20.0-45.0); NEUTROPHILS % (AUTO) 85.3 % (45.0-75.0)
[2017-11-11 16:22] LABS: BASOPHILS % (AUTO) 0.8 % (0.0-2.0); EOSINOPHILS % (AUTO) 0.1 % (0.0-3.0); MONOCYTES % (AUTO) 11.1 % (1.0-10.0)
--- NOTE | 2017-11-11 16:43 | Diagnostic Imaging Report ---
Indication: Cough Technique: One view of the chest Comparison: 11/02/2017 Findings: Again demonstrated is pleural fluid on the right, appears to be decreased from the previous exam. Hazy opacity at the left lung base may probably represents parenchymal disease but could indicate some pleural fluid as well. The heart size is normal Impression: Right-sided pleural effusion, smaller than on 11/02/2017 Hazy opacity at the left lung base, likely parenchymal disease but could also indicate pleural fluid
[2017-11-11 17:17] LABS: INR 2.6 (0.9-1.1)
[2017-11-11] MEDS: Hydrocortisone SUPP RECTAL SCH (18:00)
[2017-11-12] VITALS: BP 134/70
[2017-11-12 04:00] VITALS: BP 123/63
[2017-11-12 06:09] LABS: HEMATOCRIT 25.6 % (42.0-52.0); MEAN CORPUSCULAR VOLUME 96 FL (80-99); PLATELET COUNT 85 K/UL (150-450); RED BLOOD COUNT 2.65 M/UL (4.70-6.10); RED CELL DISTRIBUTION WIDTH 20.1 % (11.6-14.8); WHITE BLOOD COUNT 16.4 K/UL (4.8-10.8)
[2017-11-12 06:46] LABS: ALANINE AMINOTRANSFERASE 35 U/L (12-78); ALBUMIN 2.2 G/DL (3.4-5.0); ALBUMIN/GLOBULIN RATIO 0.8 (1.0-2.7); ALKALINE PHOSPHATASE 95 U/L (46-116); ANION GAP 8 mmol/L (5-15); ASPARTATE AMINO TRANSFERASE 36 U/L (15-37); BILIRUBIN,TOTAL 13.6 MG/DL (0.2-1.0); BLOOD UREA NITROGEN 16 mg/dL (7-18); CALCIUM 8.5 MG/DL (8.5-10.1); CARBON DIOXIDE 23 MMOL/L (21-32); CHLORIDE 105 MMOL/L (98-107); CREATININE 0.6 MG/DL (0.55-1.30); POTASSIUM 4.3 MMOL/L (3.5-5.1); SODIUM 136 MMOL/L (136-145)
[2017-11-12 06:58] LABS: BILIRUBIN,DIRECT 4.5 MG/DL (0.0-0.3)
--- NOTE | 2017-11-12 06:58 | General Progress Note ---
Assessment/Plan Problem List: (1) ETOH abuse ICD Codes: F10.10 - Alcohol abuse, uncomplicated SNOMED: 48642426 (2) Ascites ICD Codes: R18.8 - Other ascites SNOMED: 585305338 (3) Lower GI bleed requiring more than 4 units of blood in 24 hours, ICU, or surgery ICD Codes: K92.2 - Gastrointestinal hemorrhage, unspecified SNOMED: 33987355, 246324997, [id number] (4) Cirrhosis of liver with ascites ICD Codes: K74.60 - Unspecified cirrhosis of liver; R18.8 - Other ascites SNOMED: 88519279, 413221656 (5) Hepatic encephalopathy ICD Codes: K72.90 - Hepatic failure, unspecified without coma SNOMED: 04888609 Assessment/Plan neg colonoscopy yesterday for active bleed repeat INR vit k one dose advance diet Subjective ROS Limited/Unobtainable: No Allergies: Coded Allergies: No Known Allergies (Unverified , 11/02/17) Objective Last 24 Hour Vital Signs Date Time Temp Pulse Resp B/P (MAP) Pulse Ox O2 Delivery O2 Flow Rate FiO2 11/12/17 04:00 97.7 85 19 123/63 (83) 93 97.7 11/12/17 04:00 82 11/12/17 04:00 Nasal Cannula 3.0 11/12/17 00:09 84 11/12/17 00:00 Nasal Cannula 3.0 11/12/17 00:00 97.7 80 19 134/70 (91) 95 97.7 11/11/17 21:00 Nasal Cannula 3.0 11/11/17 20:00 Nasal Cannula 3.0 11/11/17 20:00 97.9 83 19 134/80 (98) 96 97.9 11/11/17 19:33 87 11/11/17 19:00 94 Room Air 11/11/17 19:00 Room Air 11/11/17 16:00 83 11/11/17 16:00 98.2 84 20 152/84 (106) 97 98.2 11/11/17 16:00 Nasal Cannula 3.0 11/11/17 12:24 1 11/11/17 12:00 83 11/11/17 12:00 Nasal Cannula 3.0 11/11/17 12:00 98.2 85 20 133/74 (93) 97 98.2 11/11/17 10:35 98.2 82 14 120/84 94 Nasal Cannula 3 98.2 11/11/17 10:25 85 14 131/72 94 Nasal Cannula 3 11/11/17 10:25 86 14 98 11/11/17 10:10 86 14 125/76 96 Nasal Cannula 3 11/11/17 10:05 86 14 127/74 96 Nasal Cannula 3 11/11/17 10:00 98.1 86 14 120/89 96 Nasal Cannula 3 98.1 11/11/17 08:00 81 11/11/17 08:00 98.1 84 18 128/72 (90) 98 98.1 11/11/17 08:00 Nasal Cannula 3.0 Intake and Output 11/11/17 11/12/17 19:00 07:00 Intake Total 2060 ml 250 ml Output Total 100 ml 450 ml Balance 1960 ml -200 ml Intake Oral 1490 ml 250 ml IV Total 50 ml Blood Product 520 ml Output Urine Total 100 ml 450 ml # Voids 1 2 # Bowel Movements 5 2 Laboratory Tests 11/11/17 15:50: White Blood Count 18.0H, Red Blood Count 2.61L, Hemoglobin 9.0L, Hematocrit 25.3L, Mean Corpuscular Volume 97, Mean Corpuscular Hemoglobin 34.6H, Mean Corpuscular Hemoglobin Concent 35.7, Red Cell Distribution Width 21.2H, Platelet Count 80L, Mean Platelet Volume 7.0, Neutrophils (%) (Auto) 85.3H, Lymphocytes (%) (Auto) 2.6L, Monocytes (%) (Auto) 11.1H, Eosinophils (%) (Auto) 0.1, Basophils (%) (Auto) 0.8, Prothrombin Time 26.5H, Prothromb Time International Ratio 2.6H, Activated Partial Thromboplast Time 39H 11/12/17 04:00: White Blood Count 16.4H, Red Blood Count 2.65L, Hemoglobin 9.0L, Hematocrit 25.6L, Mean Corpuscular Volume 96, Mean Corpuscular Hemoglobin 34.0H, Mean Corpuscular Hemoglobin Concent 35.2, Red Cell Distribution Width 20.1H, Platelet Count 85L, Mean Platelet Volume 7.4, Neutrophils (%) (Auto) , Lymphocytes (%) (Auto) , Monocytes (%) (Auto) , Eosinophils (%) (Auto) , Basophils (%) (Auto) , Neutrophils % (Manual) [Pending], Lymphocytes % (Manual) [Pending], Platelet Estimate [Pending], Platelet Morphology [Pending], Sodium Level 136, Potassium Level 4.3, Chloride Level 105, Carbon Dioxide Level 23, Anion Gap 8, Blood Urea Nitrogen 16, Creatinine 0.6, Estimat Glomerular Filtration Rate > 60, Glucose Level 98, Calcium Level 8.5, Total Bilirubin 13.6H , Direct Bilirubin [Pending], Aspartate Amino Transf (AST/SGOT) 36, Alanine Aminotransferase (ALT/SGPT) 35, Alkaline Phosphatase 95, Total Protein 4.9L, Albumin 2.2L, Globulin 2.7, Albumin/Globulin Ratio 0.8L Height (Feet): 6 Height (Inches): 2.00 Weight (Pounds): 183 General Appearance: no apparent distress EENT: normal ENT inspection Neck: supple Cardiovascular: normal rate Respiratory/Chest: decreased breath sounds Abdomen: normal bowel sounds, non tender, soft Extremities: non-tender Morgan Fritz MD Nov 12, 2017 06:58
[2017-11-12 08:00] VITALS: BP 139/78
[2017-11-12] MEDS ORDERED: Phytonadione 1 MG in D5W 55 ML IVPB SCH (08:00)
[2017-11-12] MEDS: Hydrocortisone SUPP RECTAL SCH (09:00)
[2017-11-12] MEDS: Pantoprazole Inj IVP SCH (09:06)
--- NOTE | 2017-11-12 09:18 | General Surgery Progress Note ---
General Surgery-Progress Note Subjective Additional Comments no bleeding overnight. transfused. h/h stable. leukocytosis trending down Objective Last 24 Hour Vital Signs Date Time Temp Pulse Resp B/P (MAP) Pulse Ox O2 Delivery O2 Flow Rate FiO2 11/12/17 08:00 98.1 89 20 139/78 (98) 99 98.1 11/12/17 04:00 97.7 85 19 123/63 (83) 93 97.7 11/12/17 04:00 82 11/12/17 04:00 Nasal Cannula 3.0 11/12/17 00:09 84 11/12/17 00:00 Nasal Cannula 3.0 11/12/17 00:00 97.7 80 19 134/70 (91) 95 97.7 11/11/17 21:00 Nasal Cannula 3.0 11/11/17 20:00 Nasal Cannula 3.0 11/11/17 20:00 97.9 83 19 134/80 (98) 96 97.9 11/11/17 19:33 87 11/11/17 19:00 94 Room Air 11/11/17 19:00 Room Air 11/11/17 16:00 83 11/11/17 16:00 98.2 84 20 152/84 (106) 97 98.2 11/11/17 16:00 Nasal Cannula 3.0 11/11/17 12:24 1 11/11/17 12:00 83 11/11/17 12:00 Nasal Cannula 3.0 11/11/17 12:00 98.2 85 20 133/74 (93) 97 98.2 11/11/17 10:35 98.2 82 14 120/84 94 Nasal Cannula 3 98.2 11/11/17 10:25 85 14 131/72 94 Nasal Cannula 3 11/11/17 10:25 86 14 98 11/11/17 10:10 86 14 125/76 96 Nasal Cannula 3 11/11/17 10:05 86 14 127/74 96 Nasal Cannula 3 11/11/17 10:00 98.1 86 14 120/89 96 Nasal Cannula 3 98.1 I&O Intake and Output 11/11/17 11/12/17 19:00 07:00 Intake Total 2060 ml 250 ml Output Total 100 ml 450 ml Balance 1960 ml -200 ml Intake Oral 1490 ml 250 ml IV Total 50 ml Blood Product 520 ml Output Urine Total 100 ml 450 ml # Voids 1 2 # Bowel Movements 5 2 Dressing: saturated Wound: clean Drains: other Cardiovascular: RSR Respiratory: clear Abdomen: soft, non-tender, present bowel sounds Extremities: no cyanosis Laboratory Tests Test 11/11/17 15:50 11/12/17 04:00 White Blood Count 18.0 K/UL (4.8-10.8) H 16.4 K/UL (4.8-10.8) H Red Blood Count 2.61 M/UL (4.70-6.10) L 2.65 M/UL (4.70-6.10) L Hemoglobin 9.0 G/DL (14.2-18.0) L 9.0 G/DL (14.2-18.0) L Hematocrit 25.3 % (42.0-52.0) L 25.6 % (42.0-52.0) L Mean Corpuscular Volume 97 FL (80-99) 96 FL (80-99) Mean Corpuscular Hemoglobin 34.6 PG (27.0-31.0) H 34.0 PG (27.0-31.0) H Mean Corpuscular Hemoglobin Concent 35.7 G/DL (32.0-36.0) 35.2 G/DL (32.0-36.0) Red Cell Distribution Width 21.2 % (11.6-14.8) H 20.1 % (11.6-14.8) H Platelet Count 80 K/UL (150-450) L 85 K/UL (150-450) L Mean Platelet Volume 7.0 FL (6.5-10.1) 7.4 FL (6.5-10.1) Neutrophils (%) (Auto) 85.3 % (45.0-75.0) H % (45.0-75.0) Lymphocytes (%) (Auto) 2.6 % (20.0-45.0) L % (20.0-45.0) Monocytes (%) (Auto) 11.1 % (1.0-10.0) H % (1.0-10.0) Eosinophils (%) (Auto) 0.1 % (0.0-3.0) % (0.0-3.0) Basophils (%) (Auto) 0.8 % (0.0-2.0) % (0.0-2.0) Prothrombin Time 26.5 SEC (9.30-11.50) H Prothromb Time International Ratio 2.6 (0.9-1.1) H Activated Partial Thromboplast Time 39 SEC (23-33) H Neutrophils % (Manual) Pending Lymphocytes % (Manual) Pending Platelet Estimate Pending Platelet Morphology Pending Sodium Level 136 MMOL/L (136-145) Potassium Level 4.3 MMOL/L (3.5-5.1) Chloride Level 105 MMOL/L (98-107) Carbon Dioxide Level 23 MMOL/L (21-32) Anion Gap 8 mmol/L (5-15) Blood Urea Nitrogen 16 mg/dL (7-18) Creatinine 0.6 MG/DL (0.55-1.30) Estimat Glomerular Filtration Rate > 60 mL/min (>60) Glucose Level 98 MG/DL (74-106) Calcium Level 8.5 MG/DL (8.5-10.1) Total Bilirubin 13.6 MG/DL (0.2-1.0) H Direct Bilirubin 4.5 MG/DL (0.0-0.3) H Aspartate Amino Transf (AST/SGOT) 36 U/L (15-37) Alanine Aminotransferase (ALT/SGPT) 35 U/L (12-78) Alkaline Phosphatase 95 U/L (46-116) Total Protein 4.9 G/DL (6.4-8.2) L Albumin 2.2 G/DL (3.4-5.0) L Globulin 2.7 g/dL Albumin/Globulin Ratio 0.8 (1.0-2.7) L Plan Problems: (1) UGI bleed Assessment & Plan: seems to have stopped. EGD without active bleeding Colonoscopy deferred initially appreciate GI input trend labs - improving repeat rectal bleeding - colonoscopy noted f/u GI report transfuse prn unfortunately given history poor prognosis. (2) Skin abnormalities Assessment & Plan: sacral and posterior thigh wounds partial thickness stage II wounds with epidermal loss and dermal irritation. etiology does not seem to be pressure; possibly from laying in bloody stool for prolonged period of time? no history of injury or trauma improved on exam today. needs to ask for assistance and stop laying in his feces -wash site daily and prn -skin protectant daily and prn -okay for non adherent dressings. -will take time to heal given comorbidities thank you Orville Alcala Nov 12, 2017 09:18
[2017-11-12] MEDS ORDERED: LR 1000ml ONE (10:00)
[2017-11-12] MEDS ORDERED: Lidocaine 1% MPF 10mg/ml 5ml ONE (10:00)
[2017-11-12] MEDS ORDERED: Propofol 200mg/20ml IV ONE (10:00)
[2017-11-12 12:00] VITALS: BP 140/80
--- NOTE | 2017-11-12 13:15 | General Progress Note ---
Assessment/Plan Assessment/Plan # Thrombocytopenia. Related to underlying cirrhosis. as well as splenomegaly, if the plt count less than 10k, transfuse immediately. If less than 20k and febrile, transfuse. If less than 50k and bleeding, transfuse. If neurosurgical bleed, transfuse as well. --> Cont abx with ID service. Appreciate recs. --> Cont to monitor PLT count for improvement. --> US of the abdomen has been reviewed, shows cirrhosis --> Current PLT remains 40-80k, remains low # Anemia of chronic disease. Baseline range is 7-10 also is due to myelosuppression, anemia w/u has been reviewed. Will trend CBC as needed. --> Cont to monitor for stability --> Hgb goal above 7 --> Blood tx: 1 unit 11/04 and monitoring in case downtrends # Coagulopathy related to liver disease --> DO NOT GIVE ANY ANTICOAGULANTS, no coumadin, no heparin # Acute encephalopathy- multifactorial likely liver related --> as per gi management # Sepsis: likely SB Peritonitis --> on abx, continue as per primary # Right pleural effusion due to advanced cirrhosis. --> Recommend thoracentesis to improve his respiratory condition # Acute GI-Bleeding S/p esophagogastroduodenoscopy. Continue Protonix gtt --> Monitor H and H. transfuse blood as needed. # Liver cirrhosis, advanced, complicated with ascites and jaundice I GREATLY APPRECIATE THE CONSULTATION. Subjective Constitutional: Denies: no symptoms, chills, diaphoresis, fever, malaise, weakness, other HEENT: Denies: no symptoms, eye pain, blurred vision, tearing, double vision, ear pain, ear discharge, nose pain, nose congestion, throat pain, throat swelling, mouth pain, mouth swelling, other Cardiovascular: Denies: no symptoms, chest pain, edema, irregular heart rate, lightheadedness, palpitations, syncope, other Respiratory: Denies: no symptoms, cough, orthopnea, shortness of breath, SOB with excertion, SOB at rest, sputum, stridor, wheezing, other Gastrointestinal/Abdominal: Denies: no symptoms, abdomen distended, abdominal pain, black stools, tarry stools, blood in stool, constipated, diarrhea, difficulty swallowing, nausea, poor appetite, poor fluid intake, rectal bleeding , vomiting, other Genitourinary: Denies: no symptoms, burning, discharge, frequency, flank pain, hematuria, incontinence, pain, urgency, other Neurologic/Psychiatric: Denies: no symptoms, anxiety, depressed, emotional problems, headache, numbness, paresthesia, pre-existing deficit, seizure, tingling, tremors, weakness, other Endocrine: Denies: no symptoms, excessive sweating, flushing, intolerance to cold, intolerance to heat, increased hunger, increased thirst, increased urine, unexplained weight gain, unexplained weight loss, other Hematologic/Lymphatic: Denies: no symptoms, anemia, easy bleeding, easy bruising, other Allergies: Coded Allergies: No Known Allergies (Unverified , 11/02/17) Subjective slifghtly confused though better than 2 days ago, no bleeding, wbc better Objective Last 24 Hour Vital Signs Date Time Temp Pulse Resp B/P (MAP) Pulse Ox O2 Delivery O2 Flow Rate FiO2 11/12/17 12:00 Nasal Cannula 2.0 11/12/17 09:22 96 Nasal Cannula 2.0 28 11/12/17 09:22 Nasal Cannula 28 11/12/17 08:00 Nasal Cannula 2.0 11/12/17 08:00 98.1 89 20 139/78 (98) 99 98.1 11/12/17 08:00 96 11/12/17 04:00 97.7 85 19 123/63 (83) 93 97.7 11/12/17 04:00 82 11/12/17 04:00 Nasal Cannula 3.0 11/12/17 00:09 84 11/12/17 00:00 Nasal Cannula 3.0 11/12/17 00:00 97.7 80 19 134/70 (91) 95 97.7 11/11/17 21:00 Nasal Cannula 3.0 11/11/17 20:00 Nasal Cannula 3.0 11/11/17 20:00 97.9 83 19 134/80 (98) 96 97.9 11/11/17 19:33 87 11/11/17 19:00 94 Room Air 11/11/17 19:00 Room Air 11/11/17 16:00 83 11/11/17 16:00 98.2 84 20 152/84 (106) 97 98.2 11/11/17 16:00 Nasal Cannula 3.0 Intake and Output 11/11/17 11/12/17 19:00 07:00 Intake Total 2060 ml 250 ml Output Total 100 ml 450 ml Balance 1960 ml -200 ml Intake Oral 1490 ml 250 ml IV Total 50 ml Blood Product 520 ml Output Urine Total 100 ml 450 ml # Voids 1 2 # Bowel Movements 5 2 Laboratory Tests 11/11/17 15:50: White Blood Count 18.0H, Red Blood Count 2.61L, Hemoglobin 9.0L, Hematocrit 25.3L, Mean Corpuscular Volume 97, Mean Corpuscular Hemoglobin 34.6H, Mean Corpuscular Hemoglobin Concent 35.7, Red Cell Distribution Width 21.2H, Platelet Count 80L, Mean Platelet Volume 7.0, Neutrophils (%) (Auto) 85.3H, Lymphocytes (%) (Auto) 2.6L, Monocytes (%) (Auto) 11.1H, Eosinophils (%) (Auto) 0.1, Basophils (%) (Auto) 0.8, Prothrombin Time 26.5H, Prothromb Time International Ratio 2.6H, Activated Partial Thromboplast Time 39H 11/12/17 04:00: White Blood Count 16.4H, Red Blood Count 2.65L, Hemoglobin 9.0L, Hematocrit 25.6L, Mean Corpuscular Volume 96, Mean Corpuscular Hemoglobin 34.0H, Mean Corpuscular Hemoglobin Concent 35.2, Red Cell Distribution Width 20.1H, Platelet Count 85L, Mean Platelet Volume 7.4, Neutrophils (%) (Auto) , Lymphocytes (%) (Auto) , Monocytes (%) (Auto) , Eosinophils (%) (Auto) , Basophils (%) (Auto) , Differential Total Cells Counted 100, Neutrophils % ( Manual) 81H, Lymphocytes % (Manual) 2L, Monocytes % (Manual) 13H, Eosinophils % (Manual) 0, Basophils % (Manual) 0, Band Neutrophils 4, Platelet Estimate DecreasedL, Platelet Morphology Normal, Hypochromasia 1+, Poikilocytosis 1+, Anisocytosis 2+, Macrocytosis 1+, Agustin Cells 1+, Sodium Level 136, Potassium Level 4.3, Chloride Level 105, Carbon Dioxide Level 23, Anion Gap 8, Blood Urea Nitrogen 16, Creatinine 0.6, Estimat Glomerular Filtration Rate > 60, Glucose Level 98, Calcium Level 8.5, Total Bilirubin 13.6H, Direct Bilirubin 4.5H, Aspartate Amino Transf (AST/SGOT) 36, Alanine Aminotransferase (ALT/SGPT) 35, Alkaline Phosphatase 95, Total Protein 4.9L, Albumin 2.2L, Globulin 2.7, Albumin /Globulin Ratio 0.8L Height (Feet): 6 Height (Inches): 2.00 Weight (Pounds): 183 General Appearance: WD/WN Neck: normal alignment Cardiovascular: regular rhythm Respiratory/Chest: lungs clear Abdomen: no mass Extremities: non-tender Edema: no edema noted Leg (L), no edema noted Leg (R) Edema: mild edema Neurologic: alert Sahil Agee MD Nov 12, 2017 13:15
--- NOTE | 2017-11-12 13:34 | Infectious Diseases Prog Note ---
Assessment/Plan Problems: (1) Leukocytosis, unspecified Assessment & Plan: suspect due to steroids , rule out sepsis, with recurrent bleeding , had negative blood culture on admission , S/P ceftriaxon empirically for SBP prophylaxis for 7 days . repeated blood culture is pending , CXR no new infiltrates but effusion , monitor off antibiotics for now (2) Pleural effusion on right Assessment & Plan: suspect due to liver cirrhosis , recommend thoracentesis and fluids culture with cytology (3) Cirrhosis of liver with ascites Assessment & Plan: advanced complicated with UGI bleeding, on PPI and steroids per GI , poor prognosis. avoid hepatotoxics (4) UGI bleed Assessment & Plan: due to liver cirrhosis with no esophageal varices on EGD , continue PPI, transfuse blood as needed, Gi is following (5) Hepatic encephalopathy Assessment & Plan: due to liver cirrhosis , continue lactulose and rifixamin (6) Ascites Assessment & Plan: S/P paracentesis , fluids culture so far is negative (7) Diarrhea Assessment & Plan: suspect due to lactulose with negative C diff Subjective Constitutional: Reports: no symptoms HEENT: Reports: no symptoms Respiratory: Reports: shortness of breath, dry cough Breasts: Reports: no symptoms Cardiovascular: Reports: no symptoms Gastrointestinal/Abdominal: Reports: diarrhea, bloating Genitourinary: Reports: no symptoms Neurologic: Reports: no symptoms Psychiatric: Reports: no symptoms Skin: Reports: no symptoms Endocrine: Reports: no symptoms Hematologic: Reports: no symptoms Musculoskeletal: Reports: no symptoms Allergies: Coded Allergies: No Known Allergies (Unverified , 11/02/17) Subjective he had massive bleeding yesterday and became hypoxemic , was transferred to SDU , now more stable after received transfusion, no productive cough, fever or chills . Objective Vital Signs Last 24 Hour Vital Signs Date Time Temp Pulse Resp B/P (MAP) Pulse Ox O2 Delivery O2 Flow Rate FiO2 11/12/17 12:00 Nasal Cannula 2.0 11/12/17 09:22 96 Nasal Cannula 2.0 28 11/12/17 09:22 Nasal Cannula 28 11/12/17 08:00 Nasal Cannula 2.0 11/12/17 08:00 98.1 89 20 139/78 (98) 99 98.1 11/12/17 08:00 96 11/12/17 04:00 97.7 85 19 123/63 (83) 93 97.7 11/12/17 04:00 82 11/12/17 04:00 Nasal Cannula 3.0 11/12/17 00:09 84 11/12/17 00:00 Nasal Cannula 3.0 11/12/17 00:00 97.7 80 19 134/70 (91) 95 97.7 11/11/17 21:00 Nasal Cannula 3.0 11/11/17 20:00 Nasal Cannula 3.0 11/11/17 20:00 97.9 83 19 134/80 (98) 96 97.9 11/11/17 19:33 87 11/11/17 19:00 94 Room Air 11/11/17 19:00 Room Air 11/11/17 16:00 83 11/11/17 16:00 98.2 84 20 152/84 (106) 97 98.2 11/11/17 16:00 Nasal Cannula 3.0 Height (Feet): 6 Height (Inches): 2.00 Weight (Pounds): 183 General Appearance: WD/WN, no acute distress HEENT: normocephalic, atraumatic, anicteric, mucous membranes moist Respiratory/Chest: chest wall non-tender, no respiratory distress, no accessory muscle use, decreased breath sounds, expiratory wheezing Cardiovascular: normal peripheral pulses, normal rate, regular rhythm, no gallop/murmur, no JVD Abdomen: normal bowel sounds, soft, non tender, no organomegaly, non distended , no mass, no scars Extremities: no cyanosis, no clubbing Skin: no rash, no lesions, no ulcers Neurologic/Psychiatric: alert, oriented x 3, responsive Lymphatic: no neck adenopathy, no groin adenopathy Musculoskeletal: normal muscle bulk, no effusion Laboratory Tests Test 11/11/17 15:50 11/12/17 04:00 White Blood Count 18.0 K/UL (4.8-10.8) H 16.4 K/UL (4.8-10.8) H Red Blood Count 2.61 M/UL (4.70-6.10) L 2.65 M/UL (4.70-6.10) L Hemoglobin 9.0 G/DL (14.2-18.0) L 9.0 G/DL (14.2-18.0) L Hematocrit 25.3 % (42.0-52.0) L 25.6 % (42.0-52.0) L Mean Corpuscular Volume 97 FL (80-99) 96 FL (80-99) Mean Corpuscular Hemoglobin 34.6 PG (27.0-31.0) H 34.0 PG (27.0-31.0) H Mean Corpuscular Hemoglobin Concent 35.7 G/DL (32.0-36.0) 35.2 G/DL (32.0-36.0) Red Cell Distribution Width 21.2 % (11.6-14.8) H 20.1 % (11.6-14.8) H Platelet Count 80 K/UL (150-450) L 85 K/UL (150-450) L Mean Platelet Volume 7.0 FL (6.5-10.1) 7.4 FL (6.5-10.1) Neutrophils (%) (Auto) 85.3 % (45.0-75.0) H % (45.0-75.0) Lymphocytes (%) (Auto) 2.6 % (20.0-45.0) L % (20.0-45.0) Monocytes (%) (Auto) 11.1 % (1.0-10.0) H % (1.0-10.0) Eosinophils (%) (Auto) 0.1 % (0.0-3.0) % (0.0-3.0) Basophils (%) (Auto) 0.8 % (0.0-2.0) % (0.0-2.0) Prothrombin Time 26.5 SEC (9.30-11.50) H Prothromb Time International Ratio 2.6 (0.9-1.1) H Activated Partial Thromboplast Time 39 SEC (23-33) H Differential Total Cells Counted 100 Neutrophils % (Manual) 81 % (45-75) H Lymphocytes % (Manual) 2 % (20-45) L Monocytes % (Manual) 13 % (1-10) H Eosinophils % (Manual) 0 % (0-3) Basophils % (Manual) 0 % (0-2) Band Neutrophils 4 % (0-8) Platelet Estimate Decreased L Platelet Morphology Normal Hypochromasia 1+ Poikilocytosis 1+ Anisocytosis 2+ Macrocytosis 1+ Agustin Cells 1+ Sodium Level 136 MMOL/L (136-145) Potassium Level 4.3 MMOL/L (3.5-5.1) Chloride Level 105 MMOL/L (98-107) Carbon Dioxide Level 23 MMOL/L (21-32) Anion Gap 8 mmol/L (5-15) Blood Urea Nitrogen 16 mg/dL (7-18) Creatinine 0.6 MG/DL (0.55-1.30) Estimat Glomerular Filtration Rate > 60 mL/min (>60) Glucose Level 98 MG/DL (74-106) Calcium Level 8.5 MG/DL (8.5-10.1) Total Bilirubin 13.6 MG/DL (0.2-1.0) H Direct Bilirubin 4.5 MG/DL (0.0-0.3) H Aspartate Amino Transf (AST/SGOT) 36 U/L (15-37) Alanine Aminotransferase (ALT/SGPT) 35 U/L (12-78) Alkaline Phosphatase 95 U/L (46-116) Total Protein 4.9 G/DL (6.4-8.2) L Albumin 2.2 G/DL (3.4-5.0) L Globulin 2.7 g/dL Albumin/Globulin Ratio 0.8 (1.0-2.7) L Current Medications Medications (Trade) Dose Ordered Sig/Fish Route PRN Reason Start Time Stop Time Status Last Admin Dose Admin Acetaminophen (Tylenol) 325 mg Q6H PRN ORAL Mild Pain/Temp > 100.5 11/11/17 04:00 12/08/17 09:59 Hydrocortisone (Anusol HC) 1 supp TWICE A DAY RECTAL 11/11/17 18:00 12/11/17 17:59 Nystatin (Nystatin Cr) 1 applic THREE TIMES A DAY TOPIC 11/11/17 09:00 12/10/17 10:29 11/12/17 13:06 Pantoprazole (Protonix) 40 mg EVERY 12 HOURS IVP 11/11/17 09:00 12/04/17 20:59 11/12/17 09:06 Prednisone (predniSONE) 40 mg DAILY ORAL 11/11/17 09:00 12/02/17 15:44 11/12/17 09:08 Rifaximin (Xifaxan) 550 mg BID ORAL 11/11/17 09:00 10/11/18 08:59 11/12/17 09:07 Marybeth Crouch M.D. Nov 12, 2017 13:34
[2017-11-12] MEDS ORDERED: XIFAXAN550 MG ORAL (13:59)
[2017-11-12] MEDS ORDERED: PREDNISONE20 MG ORAL (13:59)
[2017-11-12] MEDS ORDERED: NYSTATIN CREAM15 GM TOPIC (14:01)
[2017-11-12] MEDS ORDERED: PROTONIX40 M1 IVP (14:01)
[2017-11-12] MEDS ORDERED: ANUSOL HC1 SUPP RECTAL (14:01)
[2017-11-12] MEDS ORDERED: ACETAMINOPHEN325 M1 ORAL (14:01)
--- NOTE | 2017-11-12 14:02 | General Progress Note ---
Assessment/Plan Assessment/Plan S: My geri hurts O: appears fatigued. Tolerating PO diet. off restraint. Denies nausea. PHYSICAL EXAMINATION: GENERAL: A middle-aged male, cachectic with ascites and jaundice, lying in bed, lethargic, and confused, not in distress. HEENT: Normocephalic and atraumatic. Jaundiced sclera. Jaundiced oral mucosa. No exudate. NECK: Supple. No lymphadenopathy. CARDIOVASCULAR: He is tachycardic. There is a systolic murmur in the mitral valve area. LUNGS: Bronchial bs, No wheezing .ABDOMEN: Soft. Distended with ascites. .EXTREMITY: With edema. No cyanosis.SKIN: With jaundice and spider angioma., Neuro: CN intact, more awake and alert now Meds: reviewed and reconciled, including Xifican ASSESSMENT AND RECOMMENDATION: 1. Acute Encephalopathy- multifactorial 2. Sepsis: likely SB Peritonisit, 2. Right pleural effusion due to advanced cirrhosis. Recommend thoracentesis to improve his respiratory condition. 3. Acute GI-Bleeding S/p esophagogastroduodenoscopy. Continue Protonix drip. Monitor H and H. transfuse blood as needed. 4. Liver cirrhosis, advanced, complicated with ascites and jaundice 5. Full code 6. Refusal of hospice care 7. Leukocytosis Plan: Post FFP and PRBC transfusion Poor Prognosis Full code DCP in progress likely reactive, no evidence of active acute infection Subjective Allergies: Coded Allergies: No Known Allergies (Unverified , 11/02/17) Objective Last 24 Hour Vital Signs Date Time Temp Pulse Resp B/P (MAP) Pulse Ox O2 Delivery O2 Flow Rate FiO2 11/12/17 12:00 Nasal Cannula 2.0 11/12/17 09:22 96 Nasal Cannula 2.0 28 11/12/17 09:22 Nasal Cannula 28 11/12/17 08:00 Nasal Cannula 2.0 11/12/17 08:00 98.1 89 20 139/78 (98) 99 98.1 11/12/17 08:00 96 11/12/17 04:00 97.7 85 19 123/63 (83) 93 97.7 11/12/17 04:00 82 11/12/17 04:00 Nasal Cannula 3.0 11/12/17 00:09 84 11/12/17 00:00 Nasal Cannula 3.0 11/12/17 00:00 97.7 80 19 134/70 (91) 95 97.7 11/11/17 21:00 Nasal Cannula 3.0 11/11/17 20:00 Nasal Cannula 3.0 11/11/17 20:00 97.9 83 19 134/80 (98) 96 97.9 11/11/17 19:33 87 11/11/17 19:00 94 Room Air 11/11/17 19:00 Room Air 11/11/17 16:00 83 11/11/17 16:00 98.2 84 20 152/84 (106) 97 98.2 11/11/17 16:00 Nasal Cannula 3.0 Intake and Output 11/11/17 11/12/17 19:00 07:00 Intake Total 2060 ml 250 ml Output Total 100 ml 450 ml Balance 1960 ml -200 ml Intake Oral 1490 ml 250 ml IV Total 50 ml Blood Product 520 ml Output Urine Total 100 ml 450 ml # Voids 1 2 # Bowel Movements 5 2 Laboratory Tests 11/11/17 15:50: White Blood Count 18.0H, Red Blood Count 2.61L, Hemoglobin 9.0L, Hematocrit 25.3L, Mean Corpuscular Volume 97, Mean Corpuscular Hemoglobin 34.6H, Mean Corpuscular Hemoglobin Concent 35.7, Red Cell Distribution Width 21.2H, Platelet Count 80L, Mean Platelet Volume 7.0, Neutrophils (%) (Auto) 85.3H, Lymphocytes (%) (Auto) 2.6L, Monocytes (%) (Auto) 11.1H, Eosinophils (%) (Auto) 0.1, Basophils (%) (Auto) 0.8, Prothrombin Time 26.5H, Prothromb Time International Ratio 2.6H, Activated Partial Thromboplast Time 39H 11/12/17 04:00: White Blood Count 16.4H, Red Blood Count 2.65L, Hemoglobin 9.0L, Hematocrit 25.6L, Mean Corpuscular Volume 96, Mean Corpuscular Hemoglobin 34.0H, Mean Corpuscular Hemoglobin Concent 35.2, Red Cell Distribution Width 20.1H, Platelet Count 85L, Mean Platelet Volume 7.4, Neutrophils (%) (Auto) , Lymphocytes (%) (Auto) , Monocytes (%) (Auto) , Eosinophils (%) (Auto) , Basophils (%) (Auto) , Differential Total Cells Counted 100, Neutrophils % ( Manual) 81H, Lymphocytes % (Manual) 2L, Monocytes % (Manual) 13H, Eosinophils % (Manual) 0, Basophils % (Manual) 0, Band Neutrophils 4, Platelet Estimate DecreasedL, Platelet Morphology Normal, Hypochromasia 1+, Poikilocytosis 1+, Anisocytosis 2+, Macrocytosis 1+, Agustin Cells 1+, Sodium Level 136, Potassium Level 4.3, Chloride Level 105, Carbon Dioxide Level 23, Anion Gap 8, Blood Urea Nitrogen 16, Creatinine 0.6, Estimat Glomerular Filtration Rate > 60, Glucose Level 98, Calcium Level 8.5, Total Bilirubin 13.6H, Direct Bilirubin 4.5H, Aspartate Amino Transf (AST/SGOT) 36, Alanine Aminotransferase (ALT/SGPT) 35, Alkaline Phosphatase 95, Total Protein 4.9L, Albumin 2.2L, Globulin 2.7, Albumin /Globulin Ratio 0.8L Height (Feet): 6 Height (Inches): 2.00 Weight (Pounds): 183 Fauzia Patel MD Nov 12, 2017 14:02
[2017-11-12] MEDS ORDERED: Tubing IV Secondary IV ONE (16:18)
[2017-11-12] MEDS ORDERED: Tubing IV Blood Pump IV ONE (16:18)
[2017-11-12] MEDS ORDERED: NS 500ML ONE (16:18)
--- NOTE | 2017-11-13 16:08 | Cardiology Report ---
APPROVED REPORT EKG Measurement Heart [id number] and T wave abnormality Abnormal ECG
--- NOTE | 2017-11-15 10:42 | Discharge Summary ---
Discharge Summary Discharge Summary _ DATE OF ADMISSION: 11/02/2017 DATE OF DISCHARGE: 11/12/2017 REASON FOR ADMISSION: 52 years old male with history of alcoholic liver cirrhosis was brought to [facility] with recurrent hematemesis. Patient reported drinking a bottle of vodka per day for years. Upon evaluation in emergency room vital signs revealed tachycardia ,blood pressure was stable . Laboratory workup revealed anemia with hemoglobin 8.5 ,hematocrit 25.3. Platelets 91. WBC 16.6. Evidence of coagulopathy with INR 1.8. Total bilirubin 16.3, direct bilirubin 4.8. AST 124, ALT 39, lipase 115. Ammonia level 90. Chest x-ray revealed right basilar opacity ,probably large pleural effusion. EKG revealed sinus tachycardia, no acute ischemic changes. Patient admitted with diagnoses of acute encephalopathy; likely sepsis probably peritoneal; right pleural effusion secondary to advanced cirrhosis with ascites; acute upper GI bleeding; advanced alcoholic liver cirrhosis complicated with ascites and portal hypertension. CONSULTANTS: ID specialist Dr. Crouch GI specialist Dr. Fritz mottler machine feeder/onc[facility]SE: Patient admitted to stepdown unit. Patient was kept nothing by mouth and started on the IV fluids. Patient started on Protonix and octreotide drips. Patient started on lactulose and Xifaxan. Abdominal ultrasound revealed chronic liver disease/cirrhosis with evidence of portal hypertension, including moderate ascites and splenomegaly. Cholelithiasis. Bilateral pleural effusion. Patient undergone upper endoscopy which revealed gastritis , minimal upper esophagitis, but no active GI bleeding. No esophageal varices were seen. There was diffuse gastritis suspicious for portal hypertensive gastropathy, but given coagulopathy, decision was made not to biopsy at this time. Patient subsequently undergone paracentesis on 11/04, which yielded 4.3 L of Fluid. Ascitic fluid culture was negative. Vitamin K Was given to correct coagulopathy. Patient also undergone transfusion of 2 units of fresh frozen plasma. Discriminated function Was calculated and revealed poor prognosis. The patient started on prednisone as per GI specialist recommendation . Hemoglobin and hematocrit were closely monitored. Patient undergone total during this admission 5 units of packed red blood cell transfusion Stool for occult blood was positive x 2. Patient status post colonoscopy. Internal hemorrhoids noted, overall poor colonic preparation. Patient started on hydrocortisone suppository ID Consult Was Requested. Patient was started on empiric antibiotics. ID specialist closely follow. Blood culture were negative. Ascitic fluid culture was negative. Stool for C. difficile was negative. According to infectious disease specialist, leukocytosis was probably reactive due to steroids. Patient undergone 7 dfay treatment with antibiotics for prophylaxis of spontaneous bacterial peritonitis. Follow-up chest x-ray revealed no new infiltrates. ID specialist recommended to keep patient off antibiotics. Leukocytosis persisted, no fevers. Per infectious disease specialist , leukocytosis unspecified , suspecting to be due to steroids. Patient started slowly on low-sodium diet and advanced as tolerated. LFT were trending down, AST down to normal. However total and direct bilirubins remained elevated; prior to discharge total bilirubin 13.6, direct bilirubin 4.5. Hepatitis panel negative. HIV status negative. Renal parameters and electrolytes were closely monitor, electrolytes were corrected as needed. Nephrotoxins were avoided [employer] followed. Anemia workup revealed evidence of anemia of chronic disease. Hemoglobin and hematocrit were closely monitored with goal to keep hemoglobin above 7. Anemia of chronic disease and also likely due to myelosuppression secondary to chronic alcohol abuse. Patient undergone total of 5 units of packed red blood cells and 2 units of fresh frozen plasma. Coagulopathy was related to liver disease. No anticoagulation provided for this patient. Thrombocytopenia was related to underlying cirrhosis as well as splenomegaly. [employer] recommended parameters for platelets transfusion. Prior to discharge hemoglobin 9.0 ,hematocrit 25.6 and platelet count 85. Surgeon followed. No surgical intervention was necessary. Wound care provided as per surgeon's recommendation for sacral and posterior thigh wounds present on admission. Supportive care provided. and symptomatic treatment was rendered for this patient. plaster and stucco worker was involved in finding placement. Placement was found [facility] Patient was stable for transfer . Overall prognosis poor due to end-stage liver disease. FINAL DIAGNOSES: Acute encephalopathy, multifactorial Hepatic encephalopathy Acute upper GI bleeding Advanced cirrhosis of liver with ascites Status post paracentesis Right pleural effusion-due to ascites-improved Leukocytosis, unspecified, probably due to steroids Anemia of chronic disease Coagulopathy Thrombocytopenia ETOH abuse. Sacral and posterior thigh stage II partial-thickness wounds , present on admission DISCHARGE MEDICATIONS: See Medication Reconciliation list. DISCHARGE INSTRUCTIONS: Patient was discharged to the senior care facility. Follow up with medical doctor at the facility. I have been assigned to dictate discharge summary for this account. I was not involved in the patient's management. Cecilia Hinton NP Nov 15, 2017 10:42
== END 2017-11-12 16:19 | DRG 280 ==
LOC: EDBD 13:31 → EMR 14:12 → ICU 14:41 → EDBD 14:41 → EDBEDREQ 14:57 → 2E 11-04 17:28 → 4E 11-07 18:50 → 2W 11-11 03:40
PROC: 0DJ08ZZ Inspection of Upper Intestinal Tract, Via Natural or Artificial Opening Endoscopic (ICD-10-PCS; 2017-11-03)
PROC: 30243N1 Transfusion of Nonautologous Red Blood Cells into Central Vein, Percutaneous Approach (ICD-10-PCS; principal; 2017-11-03 12:00)
PROC: 0W9G3ZZ Drainage of Peritoneal Cavity, Percutaneous Approach (ICD-10-PCS; 2017-11-04)
PROC: 0DJD8ZZ Inspection of Lower Intestinal Tract, Via Natural or Artificial Opening Endoscopic (ICD-10-PCS; 2017-11-11)
DX: K70.31 Alcoholic cirrhosis of liver with ascites (principal); K70.40 Alcoholic hepatic failure without coma; K92.0 Hematemesis; R64 Cachexia; K65.2 Spontaneous bacterial peritonitis; D69.6 Thrombocytopenia, unspecified; D68.9 Coagulation defect, unspecified; R17 Unspecified jaundice; E86.0 Dehydration; F10.20 Alcohol dependence, uncomplicated; D64.9 Anemia, unspecified; Z68.23 Body mass index [BMI] 23.0-23.9, adult; L98.9 Disorder of the skin and subcutaneous tissue, unspecified; K20.9 Esophagitis, unspecified; K29.70 Gastritis, unspecified, without bleeding; D72.829 Elevated white blood cell count, unspecified; R19.7 Diarrhea, unspecified; K64.8 Other hemorrhoids; K62.5 Hemorrhage of anus and rectum
CPT/HCPCS: 36415; 71045; 74018; 76700; 76942; 80053; 82140; 82247; 82248; 82270; 82728; 83010; 83090; 83540; 83550; 83605; 83615; 83690; 83735; 84100; 84165; 84443; 85007; 85025; 85044; 85060; 85384; 85610; 85660; 85730; 86703; 86705; 86709; 86803; 86850; 86900; 86901; 86920; 86927; 87040; 87070; 87081; 87205; 87324; 87340; 88104; 93005; 94003; 94150; 94760; 96374; 96375; 99291; J2250; J2405; J3430